=== PATIENT | female | born 1960 | race Caucasian/White ===

== ENCOUNTER → 2022-06-09 | Outpatient (CLI) | payer OTHER ==
--- NOTE | 2022-06-09 13:59 | CT ---
EXAMINATION TYPE: CT chest w con CT DLP: 254 mGycm, Automated exposure control for dose reduction was used. DATE OF EXAM: 06/09/2022 1:38 PM COMPARISON: CTA chest 12/10/2021. CLINICAL INDICATION:Female, 62 years old with history of R04.2 HEMOPTYSIS; PH[facility], hemoptysis. Hx of keisha g ca. TECHNIQUE: Multiple axial images were obtained through the chest following the administration of 70 c c of Isovue 300. FINDINGS: LUNGS/ PLEURA: No pleural effusion or pneumothorax. Right lower lobe groundglass opacity is new from prior examination. Similar right upper lobe pleural-parenchymal scarring with bronchiectasis and volu me loss with suture material identified. No new concerning pulmonary nodules or masses. AIRWAY: Patent and unremarkable.. HEART: Size within normal limits. No pericardial effusion. Coronary arterial calcifications. Prominen t pericardial fat redemonstrated. MEDIASTINUM: No gross evidence of adenopathy. VASCULATURE: No aortic aneurysm. Atherosclerotic calcification of the aorta. MUSCULOSKELETAL: No acute osseous abnormalities. Subtle sclerotic appearance of the superior right ri bs likely grade to posttreatment changes. Thoracic spine shows kyphotic deformity. Anterior wedging o f the thoracic vertebral bodies again demonstrated. This is most pronounced at T8. No aggressive osse ous lesions. SOFT TISSUES/LYMPH NODES: Unremarkable. LOWER NECK: No significant findings. UPPER ABDOMEN: Surgical clips in the pericaval region. Punctate left renal calculus. Left renal cysts identified with largest measuring up to 1.9 cm. Lobulated left adrenal mass measuring 4.1 x 1.8 cm. Colonic diverticulosis. IMPRESSION: 1. Development of right lower lobe patchy consolidation concerning for infectious/inflammatory proces s. Malignancy is not entirely excluded. Attention on follow-up. 2. There are postsurgical changes of the right upper lobe with consolidation, bronchiectasis, and vol ume loss. 3. Left adrenal mass measuring up to 4.1 cm. Correlation with prior imaging is recommended otherwise consider dedicated CT adrenal mass protocol.
== END | disposition home or self-care (01) ==
LOC: RADCTMAIN 12:55
PROVIDERS: ATTEND Internal Medicine Critical Care Medicine
DX: R04.2 Hemoptysis (principal)
CPT/HCPCS: 71260; Q9967

== ENCOUNTER → 2022-06-09 | Outpatient (CLI) | payer OTHER ==
--- NOTE | 2022-06-09 13:26 | MM ---
Reason for Exam: Screening (asymptomatic). Baseline mammogram. Patient History: Menarche at age 11. First Full-Term at age 20. Postmenopausal. Previous chest radiation therapy at age 29. Previous chemotherapy at age 29. Mother had ovarian cancer, age 73. Risk Values: Brenda 5 year model risk: 1.4%. NCI Lifetime model risk: 6.0%. Prior Study Comparison: Patient's first Mammogram. No prior studies available for comparison. Tissue Density: The breast tissue is heterogeneously dense. This may lower the sensitivity of mammography. Findings: Analyzed By CAD. There is no suspicious group of microcalcifications. Asymmetry in the anterior depth outer right breast ON CC view. Overall Assessment: Incomplete: need additional imaging evaluation, BI-RAD 0 Management: Diagnostic Mammogram of the right breast. A clinical breast exam by your physician is recommended on an annual basis and results should be correlated with mammographic findings. [facility] will attempt to contact patient to return for supplemental views and ultrasound if indicated. Electronically signed and approved by: Luis De Jesus D.O.
== END | disposition home or self-care (01) ==
LOC: RADMAMWWP 12:35
PROVIDERS: ATTEND Family Medicine
DX: Z12.31 Encounter for screening mammogram for malignant neoplasm of breast (principal); Z78.0 Asymptomatic menopausal state
CPT/HCPCS: 77067

== ENCOUNTER → 2022-06-19 | Outpatient (CLI) | payer OTHER ==
--- NOTE | 2022-06-19 11:24 | USB ---
Reason for Exam: Additional evaluation requested from abnormal screening. Patient History: Menarche at age 11. First Full-Term at age 20. Postmenopausal. Previous chest radiation therapy at age 29. Previous chemotherapy at age 29. Mother had ovarian cancer, age 73. Risk Values: Brenda 5 year model risk: 1.4%. NCI Lifetime model risk: 6.0%. Technique: Method: Targeted. Prior Study Comparison: 06/09/2022 Bilateral MG screening mammo w CAD, [facility]. Findings: The upper outer quadrant of the right breast, the axilla of the right breast and the retroareolar of the right breast were scanned. Targeted ultrasound lateral portion from 7:00 to 11:00 including the subareolar region and axilla. At the 9:00 position, 4 cm from the nipple, there is a vertically orientated hypoechoic area measuring 3 x 3 x 3 mm with posterior shadowing. Given the morphology, despite the small size, and that it seems to correspond to the mammographic finding, further tissue sampling is recommended. No other solid or cystic lesion. Overall Assessment: Suspicious, BI-RAD 4 Management: Ultrasound Core Biopsy of the right breast. Tiny 3 mm mammographic correlate at the 9:00 position. Electronically signed and approved by: Familia Womack M.D. Radiologist
--- NOTE | 2022-06-19 15:42 | MM ---
Reason for Exam: Additional evaluation requested from abnormal screening. Last screening mammogram was performed less than 1 month ago. Patient History: Menarche at age 11. First Full-Term at age 20. Postmenopausal. Previous chest radiation therapy at age 29. Previous chemotherapy at age 29. Mother had ovarian cancer, age 73. Risk Values: Brenda 5 year model risk: 1.4%. NCI Lifetime model risk: 6.0%. Prior Study Comparison: 06/09/2022 Bilateral MG screening mammo w CAD, [facility]. Tissue Density: Right: There are scattered fibroglandular densities. Findings: Analyzed By CAD. Subtle 4 mm nodular asymmetric density lateral anterior right breast persists. Possibly 8 to 9:00 position. Further ultrasound evaluation recommended. Overall Assessment: Incomplete: need additional imaging evaluation, BI-RAD 0 Management: Diagnostic Breast Ultrasound of the right breast. Electronically signed and approved by: Familia Woamck M.D. Radiologist
== END | disposition home or self-care (01) ==
LOC: RADMAMWWP 10:06
PROVIDERS: ATTEND Family Medicine
DX: R92.8 Other abnormal and inconclusive findings on diagnostic imaging of breast (principal); Z78.0 Asymptomatic menopausal state; Z80.3 Family history of malignant neoplasm of breast; Z98.890 Other specified postprocedural states
CPT/HCPCS: 77065

== ENCOUNTER → 2022-07-02 | Day surgery (SDC) | payer OTHER ==
--- NOTE | 2022-07-04 14:10 | USB ---
Risk Values: Brenda 5 year model risk: 1.4%. NCI Lifetime model risk: 6.0%. Pathology Description: Location: 9 o'clock. Marker Left Behind. Needle Type: Mammotome Cores: 4 Skin Nicks: 1 Gauge: 13 The procedure of ultrasound guided core biopsy was explained to the patient. Benefits, alternatives, and risks were discussed. An informed consent was then obtained. The patient was placed in supine positioning for imaging and for the procedure. The overlying skin was prepped and draped in usual sterile fashion. Lidocaine buffered with lidocaine was used as anesthetic into the skin and subcutaneous tissue up to area of concern in the right breast 9:00 4 submitted images from the nipple. A xavier was made with surgical scalpel. Under ultrasound guidance, a 12-gauge vacuum assisted biopsy gun device was used to obtain 4 core samples. Following this, a biopsy clip was left in lesion. The patient tolerated the procedure well without any immediate complication. The patient was kept in the radiology department for short stay after the procedure and then discharged home in stable condition. Postprocedure mammogram: The patient was transferred to mammography for physician ordered post procedure mammogram for clip placement verification which demonstrated a biopsy clip in appropriate position. Impression: Successful, uncomplicated ultrasound guided core biopsy of area of concern in the right breast, full pathology results to follow. Biopsy clip in appropriate position. Pathology Results: Result: Benign, Fibrocystic change. RIGHT BREAST, NINE O'CLOCK, ULTRASOUND GUIDED NEEDLE CORE BIOPSY: Fragments of benign breast with fibrocystic changes including cyst wall with fibrosis, background blood and fat necrosis. Tissue Density: Right: The breast tissue is heterogeneously dense. This may lower the sensitivity of mammography. Overall Assessment: Benign Assessment: MG diagnostic mammo RT wo CAD - Right: Benign, BI-RAD 2. Management: Diagnostic Mammogram of the right breast in 6 months. Electronically signed and approved by: Chris Khanna DO
== END ==
LOC: RADUSWWP 10:28
PROVIDERS: ATTEND Surgery
DX: N60.31 Fibrosclerosis of right breast (principal); N60.01 Solitary cyst of right breast; N64.1 Fat necrosis of breast; R92.8 Other abnormal and inconclusive findings on diagnostic imaging of breast
CPT/HCPCS: 88305; 77065; 19083; A4648

== ENCOUNTER → 2022-12-11 | Outpatient (CLI) | payer OTHER ==
--- NOTE | 2022-12-11 12:27 | CT ---
EXAMINATION TYPE: CT chest w con DATE OF EXAM: 12/11/2022 COMPARISON: Chest CT June 09, 2022 and older studies HISTORY: Hx Lung ca, COPD. Cough. CT DLP: 284.90 mGycm. Automated Exposure Control for Dose Reduction was Utilized. TECHNIQUE: CT scan of the thorax is performed following with IV Contrast, patient injected with 100 mL of Isovue 300. FINDINGS: LUNGS: Focal right apical pleural thickening extending medially and inferiorly to the right hilar reg ion is redemonstrated. Surgical clips at level of right hilum with some adjacent scarring and suprahi lar cavitation is again seen. Right hilar superior retraction redemonstrated. Mild right lower lung linear scarring again seen. Resolved right basilar focal groundglass opacity and organizing consolida tion noted. Left lung remains clear. There is no pleural effusion or pneumothorax seen bilaterally. The tracheobronchial tree is patent. MEDIASTINUM: There are no greater than 1 cm hilar or mediastinal lymph nodes. No pericardial effusi on is seen. Stable mild cardiomegaly. Coronary artery calcification is redemonstrated. OTHER: Surgical clips in the retroperitoneum posterior to the IVC are again seen. There are a few sma ll simple parenchymal cysts scattered throughout the bilateral kidneys redemonstrated. Persistent het erogeneous left adrenal mass or 2 adjacent masses measuring in total 4.0 x 2.0 cm axial image 57 with more low dense component posteriorly as no significant change in size or appearance from prior CTs. IMPRESSION: Resolved right basilar round glass opacity and organizing consolidation otherwise no sign ificant change from prior CTs. Posttreatment changes to the right lung redemonstrated. No new or enla rging masses or adenopathy identified to suggest active neoplastic recurrence.
== END | disposition home or self-care (01) ==
LOC: RADCTMAIN 11:19
PROVIDERS: ATTEND Internal Medicine Critical Care Medicine
DX: R04.2 Hemoptysis (principal)
CPT/HCPCS: 71260; Q9967

== ENCOUNTER → 2023-02-16 | Outpatient (CLI) | payer OTHER | END | disposition home or self-care (01) | LOC: LABPAT 16:22 | PROVIDERS: ATTEND Urology | DX: Z01.812 Encounter for preprocedural laboratory examination (principal); N39.3 Stress incontinence (female) (male); R31.29 Other microscopic hematuria | CPT/HCPCS: 80048; 81001; 85027; 86850; 86900; 86901; 87086 ==

== ENCOUNTER → 2023-02-19 | Outpatient (CLI) | payer OTHER | END | disposition home or self-care (01) | LOC: LABPAT 10:24 | PROVIDERS: ATTEND Obstetrics & Gynecology | DX: Z01.818 Encounter for other preprocedural examination (principal); N81.11 Cystocele, midline; I51.7 Cardiomegaly; I45.81 Long QT syndrome | CPT/HCPCS: 93005 ==

== ENCOUNTER 2023-02-25 05:45 | Observation (INO) | payer OTHER ==
[2023-02-16 20:30] LABS: African American GFR (CKD) 78.7 (60.0-200.0); Anion Gap 13.6 mmol/L (10.00-18.00); BUN/Creat Ratio 21.18 Ratio (12.00-20.00); Blood Urea Nitrogen 19.1 mg/dL (9.0-27.0); Calcium 10.4 mg/dL (8.7-10.3); Non-African American GFR(CKD) 67.9 (60.0-200.0); Potassium 4.1 mmol/L (3.5-5.5)
[2023-02-16 21:42] LABS: Appearance,Urine Clear (Clear); Bilirubin,Urine Negative (Negative); Blood,Urine Negative (Negative); Color,Urine Yellow (Yellow); Ketones,Urine Negative (Negative); Nitrite,Urine Positive (Negative); Specific Gravity,Urine 1.017 (1.001-1.030); Urobilinogen,Urine 0.2 (0.2,1.0)
[2023-02-16 21:51] LABS: Bacteria,Urine 4+ /HPF (None Seen)
[2023-02-18 12:54] VITALS: BMI 24.3
--- NOTE | 2023-02-20 07:51 | HP ---
HISTORY AND PHYSICAL H and P for next week for surgery on 02/25/2023. HISTORY OF PRESENT ILLNESS: This is a 62-year-old female, who presented with recurrent prolapse and constant urinary incontinence. She was fitted with a ring pessary, which initially worked well, now stating it is very uncomfortable and is falling out with straining. She is requesting surgical repair, vaginal hysterectomy, anterior colporrhaphy, and sling procedure with Dr. Choi. She is menopausal, not taking hormonal replacement therapy. She has had no unusual postmenopausal bleeding. REVIEW OF SYSTEMS: Otherwise, negative. PAST MEDICAL HISTORY: Significant for anxiety and depression, brain aneurysm diagnosis in 2001, COPD, lung cancer in 1988, and urinary incontinence. PAST SURGICAL HISTORY: Adrenal glands removed in the past, brain aneurysm clipping, removal of right upper lobe of the lung secondary to cancer, and wisdom teeth extracted. CURRENT MEDICATIONS: 1. Celexa 40 mg once daily. 2. Centrum vitamin daily. 3. Vitamin B12 daily. 4. Melatonin 5 mg daily. 5. Ipratropium bromide 0.02% solution for inhalation daily. 6. Ventolin HFA 90 mcg. 7. inhaler 1 puff every 6 hours as needed. 8. Trelegy Ellipta 100 mcg/62.5 mcg powder for inhalation once daily. FAMILY HISTORY: Significant for ovarian cancer, lung cancer, pulmonary embolus, and rectal cancer. REPRODUCTIVE HISTORY: Significant for 3 normal spontaneous vaginal deliveries, uncomplicated. SOCIAL HISTORY: The patient drinks alcohol socially. Former tobacco smoker, quit in 2019. No vaping reported. PHYSICAL EXAMINATION: VITAL SIGNS: The patient is 5 feet 3 inches, 146 pounds, 97% O2 saturation, blood pressure 110/80. HEENT: Exam reveals good dentition. No thyromegaly. No cervical lymphadenopathy. CHEST: Clear to auscultation in all lantigua. Breathing is unlabored. No rales or rhonchi. Diminished lung sounds on the right upper aspect. CARDIAC: Reveals regular rate and rhythm with no murmur, click, or rub. BREASTS: Exam reveals breasts to be bilaterally symmetric with no skin dimpling, nipple discharge, axillary adenopathy, or discernible lesions or masses. ABDOMEN: Soft and nontender. Active bowel sounds. No organosplenomegaly. No CVA tenderness. EXTREMITIES: Reveal no edema. Good peripheral pulses. PELVIC: The external genitalia appear reasonably well estrogenized. There is a grade 2 to 3 uterine prolapse. A grade 3 cystocele. No obvious rectocele. Cervix appears normal to palpation. Internal exam reveals nontender mobile uterus. Negative adnexa bilaterally. RECTAL: Reveals good sphincter tone. FIT-negative stool. No hemorrhoids. MENTAL STATUS: The patient is alert and oriented x3, with good judgment and normal affect. IMPRESSION: Increasingly symptomatic uterine prolapse and cystocele, with genuine stress urinary incontinence. The patient is using a pessary for a long period of time, now requesting surgical palliation. PLAN: The patient did have preoperative clearance with Dr. Billings, please see attached. She has been counseled regarding the risks of surgery to include but not be exclusive of bleeding, infection, perforation or damage to bowel, bladder, ureters, or indeed any pelvic or abdominal organs. We reviewed the risks of anesthesia, aspiration, nerve damage, and even . The risk of postoperative dyspareunia is also discussed. Second opinion is offered and declined. All questions answered. The ACOG pamphlets on this procedure have been given to the patient and reviewed. MMODL / IJN: [id number] /
--- NOTE | 2023-02-24 11:33 | P.GSHP ---
History of Present Illness H&P Date: 02/24/23 62-year-old female with vaginal prolapse and mixed urinary incontinence. She is to have a vaginal hysterectomy and AP repair by Dr. Craig. She has stress urinary incontinence that I will do a trans-obturator tape at the same time. She does have urgency incontinence also which is probably related to the prolapse which will hopefully disappear after the hysterectomy and anterior repair. The risks complications have been discussed - Constitutional Constitutional: Denies chills, Denies fever - EENT Eyes: denies blurred vision, denies pain Ears, nose, mouth and throat: Denies headache, Denies sore throat - Cardiovascular Cardiovascular: Denies chest pain, Denies shortness of breath - Respiratory Respiratory: Denies cough, Denies 7 - Gastrointestinal Gastrointestinal: Denies abdominal pain, Denies diarrhea, Denies nausea, Denies vomiting - Genitourinary (Female) Genitourinary: Denies dysuria, Denies hematuria - Genitourinary (Male) Genitourinary: Denies dysuria, Denies hematuria - Musculoskeletal Musculoskeletal: Denies myalgias - Integumentary Integumentary: Denies pruritus, Denies rash - Neurological Neurological: Denies numbness, Denies weakness - Psychiatric Psychiatric: Denies anxiety, Denies depression - Endocrine Endocrine: Denies fatigue, Denies weight change Past Medical History Past Medical History: Cancer, COPD Additional Past Medical History / Comment(s): lung CA hx, brain anyursm-HAD SURGERY, History of Any Multi-Drug Resistant Organisms: None Reported Past Surgical History: Tubal Ligation Additional Past Surgical History / Comment(s): RT UPPER lobectomy AND RIGHT ADRENAL GLAND REMOVED , BRAIN SURGERY, EXTRACTION OF 4 WISDOM TEETH Past Anesthesia/Blood Transfusion Reactions: No Reported Reaction Smoking Status: Former smoker - Past Family History Mother Family Medical History: Cancer Additional Family Medical History / Comment(s): OVARIAN CANCER Sister(s) Additional Family Medical History / Comment(s): RECTAL CANCER Brother(s) Family Medical History: Cancer Additional Family Medical History / Comment(s): LUNG CANCER Medications and Allergies Home Medications Medication Instructions Recorded Confirmed Type Albuterol Sulfate [Ventolin HFA] 2 puff INHALATION RT-QID PRN 12/10/21 02/18/23 History Cholecalciferol [Vitamin D3 (125 25 mcg PO DAILY 12/10/21 02/18/23 History Mcg = 5000 Iu)] Citalopram Hydrobromide [CeleXA] 40 mg PO DAILY 12/10/21 02/18/23 History Melatonin [Melatonin ER] 10 mg PO HS 12/10/21 02/18/23 History Albuterol Nebulized [Ventolin 2.5 mg INHALATION Q6H PRN 02/18/23 02/18/23 History Nebulized] Fluticasone/Umeclidin/Vilanter 1 puff INHALATION DAILY 02/18/23 02/18/23 History [Trelegy Ellipta 200-62.5-25] Ipratropium-Albuterol Nebulize 3 ml INHALATION Q6H PRN 02/18/23 02/18/23 History [Duoneb 0.5 mg-3 mg/3 ml Soln] busPIRone HCL 5 mg PO DAILY 02/18/23 02/18/23 History Allergies Allergy/AdvReac Type Severity Reaction Status Date / Time No Known Allergies Allergy Verified 02/18/23 10:50 Surgical - Exam - General well developed, well nourished, no distress - Eyes normal ocular movement, no icteric - ENT no hearing loss, no congestion - Neck no masses, trachea midline - Respiratory normal respiratory effort, clear to auscultation - Abdomen Abdomen: soft, non tender, no guarding, no rigid, no rebound - Genitourinary cysto rectocele, mobile urethra with kimmy - Integumentary no rash, no abnormal pigmentation - Neurologic no disoriented, no combative - Psychiatric oriented to time, oriented to person, oriented to place, speech is normal, memory intact Results - Labs 02/16/23 16:26 Assessment and Plan Assessment: Impression: Vaginal prolapse. Stress urinary incontinence. Recommendations: Patient will undergo an anterior posterior repair by , and a trans-obturator tape (obtyrx) with cystoscopy by myself. Risks complications alternatives have been discussed.
[2023-02-25] MEDS ORDERED: LIDOCAINE 1% (10MG/ML) FOR IV START INTRADERMA PRN (05:54)
[2023-02-25] MEDS ORDERED: ONDANSETRON 4 MG/2 ML VIAL IVP ONE (05:54)
[2023-02-25] MEDS: LACTATED RINGERS 1,000 ML IV SCH (06:09)
[2023-02-25] MEDS ORDERED: DEXAMETHASONE SOD PHOSPHATE 4 MG/ML 1 ML VIAL IVP ONE (06:47)
[2023-02-25] MEDS ORDERED: MIDAZOLAM 2 MG/2 ML VIAL IVP ONE (06:54)
[2023-02-25] MEDS ORDERED: HYDROmorphone 0.5 MG/0.5 ML SYRINGE IVP PRN (07:00)
[2023-02-25] MEDS ORDERED: LIDOCAINE 2% INJ 20 MG/ML (2 ML VIAL) ONE (07:19)
[2023-02-25] MEDS ORDERED: MORPHINE SULFATE (PF) 0.3 MG/0.3 ML SYR ONE (07:19)
[2023-02-25] MEDS ORDERED: PROPOFOL 10 MG/ML 20 ML VIAL IV ONE (07:19)
[2023-02-25] MEDS ORDERED: NEOSTIGMINE 1 MG/ML 10 ML VIAL ONE (07:19)
[2023-02-25] MEDS ORDERED: SUCCINYLCHOLINE CHLORIDE 200 MG/10 ML VIAL IV ONE (07:19)
[2023-02-25] MEDS ORDERED: MIDAZOLAM 2 MG/2 ML VIAL ONE (07:19)
[2023-02-25] MEDS ORDERED: PHENYLEPHRINE-0.9% NACL SYG 1,000 MCG/10 ML SYRINGE ONE (07:19)
[2023-02-25] MEDS ORDERED: diphenhydrAMINE 50 MG/ML 1 ML VIAL ONE (07:19)
[2023-02-25] MEDS ORDERED: fentaNYL (PF) 50 MCG/ML 2 ML AMP ONE (07:19)
[2023-02-25] MEDS ORDERED: ROCURONIUM 10 MG/ML (5 ML VIAL) IV ONE (07:19)
[2023-02-25] MEDS ORDERED: GLYCOPYRROLATE 0.2 MG/ML 2 ML VIAL ONE (07:19)
[2023-02-25] MEDS ORDERED: VASOPRESSIN 20 UNIT/ML 1 ML VIAL SQ ONE ×2 (07:41)
[2023-02-25] MEDS ORDERED: GENTAMICIN 80 MG in SODIUM CHLORIDE 0.9% 500 ML 500 ML IRRIGATION ONE (07:43)
[2023-02-25] MEDS ORDERED: BACITRACIN ZINC 500 UNIT/GM OINT 28.4 GM TUBE TOPICAL ONE ×2 (07:55→08:28)
[2023-02-25] MEDS ORDERED: LACTATED RINGERS 1,000 ML IV ONE (08:18)
--- NOTE | 2023-02-25 08:29 | P.OP ---
Date of Procedure: 02/25/23 Preoperative Diagnosis: Increasingly symptomatic uterine prolapse, cystocele, genuine stress urinary incontinence Postoperative Diagnosis: Small grade 2 rectocele, ovaries streak, high in the pelvis, left in situ Procedure(s) Performed: Vaginal hysterectomy, anterior colporrhaphy Anesthesia: MAURICIOA Surgeon: Lori Craig Department Of Mathematics Chair #1: Vee Larson Estimated Blood Loss (ml): 50 IV fluids (ml): 900 Urine output (ml): 100 Pathology: other (Cervix and uterus) Condition: stable Disposition: PACU Operative Findings: Ovaries small, streaked, high in the pelvis bilaterally. Grade 2 rectocele noted. Description of Procedure: Patient is brought to the operating suite after spinal with Duramorph is placed in the preoperative area. She's placed in the dorsal lithotomy position, general anesthetic is given. Antibiotics given. The cervix, vagina, perineal bodies are all prepped and draped in usual sterile fashion. The appropriate timeout is performed to assure proper patient procedure identification. Bladder is drained for approximately 100 mL of clear yellow urine. Weighted speculum was placed into the vagina and the anterior lip of the cervix is grasped with a double-tooth tenaculum. Cervix is injected circumferentially with a dilute Pitressin solution. Mineral blade scalpel is used to incise the mucosa circumferentially with a V positioning at 6:00. Sponge rolled finger is used to sweep the mucosa from the underlying fascial plane. Peritoneum is entered at 6:00 with Metzenbaum scissors, suture tied with 2-0 Vicryl and held with hemostat. Large billed speculum is then placed into the peritoneal cavity. At all times the mucosa is swept well from the operative field to avoid injury. The right uterosacral cardinal ligament is identified, clamped cut and suture ligated, held with a hemostat laterally. Same procedure is carried out contralaterally. Uterine vasculature is skeletonized, identified, clamped cut and suture ligated. 2 additional pedicles are taken superior to the vessels. Again the bladder swept well from the operative field. It is entered at 6:00 with a Metzenbaum scissor and Cyril clamps are used across the final pedicles. The uterus and cervix are removed, the pedicles are tied with 0 Vicryl suture in a Cha stitch, flashed, and retied for excellent hemostasis bilaterally. A sponge stick is then used to visualize the ovaries which are very high in the pelvis along the sidewalls, appear atrophic and within normal limits. They're left in situ secondary to in accessibility. The speculum is then switched to the shallow billed speculum. The 2-0 Vicryl suture is brought around in a pursestring fashion to close the peritoneum. The uterosacral cardinal ligaments are brought across now to incorporate the opposite ligament as well as vaginal mucosa and the vagina is closed. 2 additional dsyugz-li-pygut sutures are used for final vaginal cuff closure. Allis clamps are used on the superior most portion of the mucosa and it is injected in the midline using the same dilute Pitressin solution for approximately 1.5 cm inferior to the urethra. A sponge rolled finger is used to sweep the mucosa from the underlying fascial plane. Dang catheter is placed in the bladder is once again drained, clear urine noted. 2-0 Vicryl sutures are used in an interrupted fashion to bring the fascial edges together in the midline thereby completely reducing the cystocele. Metzenbaum scissors are used to trim the redundant mucosa. Dr. Livingston now sits to complete his portion of the procedure. Total estimated blood loss 50 mL, fluid replacement 900 mL's. I exited the operating room with the patient in stable condition, blood pressure 108/56, pulse 65, 99% O2 saturation.
[2023-02-25] MEDS ORDERED: SIMETHICONE 80 MG CHEWABLE PO PRN (08:30)
[2023-02-25] MEDS ORDERED: ONDANSETRON 4 MG/2 ML VIAL IVP PRN (08:30)
--- NOTE | 2023-02-25 09:16 | P.OP ---
Date of Procedure: 02/25/23 Preoperative Diagnosis: Stress urinary incontinence Postoperative Diagnosis: Same Procedure(s) Performed: Trans-obturator tape with cystoscopy Anesthesia: SUSU Surgeon: Ruben Choi Estimated Blood Loss (ml): 0 Pathology: none sent Condition: stable Disposition: PACU Indications for Procedure: Patient is 62. She has vaginal prolapse and will undergo a vaginal hysterectomy with anterior repair by . I will do a trans-obturator tape[obtryx] with cystoscopy Description of Procedure: The patient is in the operating suite. She previously has had a general anesthetic sterile prep and drape. has performed a vaginal hysterectomy and anterior repair. I opened the vaginal mucosa towards the urethra. I dissect lateral to the bladder neck bilaterally. Make incisions in the inguinal crease at the level of the clitoris. I passed the introducers through the inguinal incision around the issue pubic ramus into the vaginal space bilaterally. I then performed cystoscopy to make sure there is no injury to the bladder and there is none. I attached the grafted introducers and pull the graft back through the inguinal incisions bilaterally. The graft lay in the middle of the urethra nicely without tension. I removed the redundant sheathing. I closed the vaginal mucosa with a running 2-0 Vicryl. I excised redundant graft at the inguinal incisions and closed the inguinal incisions with 4-0 Vicryl. A vaginal packings placed. The patient is awakened and returned recovery room good condition. will dictate her portion of the procedure. There is no blood loss from my. Her condition is good. The urine is clear postoperatively. ni
[2023-02-25] MEDS: KETOROLAC 15 MG/ML 1 ML VIAL IVP PRN (16:48)
[2023-02-25] MEDS: diphenhydrAMINE 50 MG/ML 1 ML VIAL IVP PRN (20:45)
[2023-02-25] MEDS ORDERED: MELATONIN 5 MG TABLET PO SCH (21:00)
--- NOTE | 2023-02-25 21:01 | P.ANPRN ---
Procedure Note - Anesthesia - Epidural/Spinal Spinal Time Out Performed: Yes Date of Procedure: 02/25/23 Procedure Start Time: 06:53 Procedure Stop Time: 07:00 Location of Patient: PreOp Indication: Acute Post-Operative Pain, Requested by Surgeon Sedation Type: Sedate with meaningful contact maintained Preparation: Sterile Prep Position: Sitting Needle Guage: 25 Blood Aspirated: No Pain Paresthesia on Injection Noted: No Events: Uneventful and Well Tolerated (Duramorph. Tin's plus fentanyl 25 mics was given intrathecal)
[2023-02-26] MEDS: KETOROLAC 15 MG/ML 1 ML VIAL IVP PRN (01:49)
[2023-02-26] MEDS: diphenhydrAMINE 50 MG/ML 1 ML VIAL IVP PRN (01:49)
--- NOTE | 2023-02-26 06:45 | P.PN ---
Progress Note - Text 02/26/23 623am 62-year-old female status post vaginal hysterectomy by Dr. Craig. Patient received a spinal Duramorph for postop pain control, she was seen and evaluated, she has a VAS of 1 with no complains of nausea vomiting. She does have some pruritus should subside soon
--- NOTE | 2023-02-26 07:46 | P.DS ---
Providers Date of admission: 02/25/23 Expected date of discharge: 02/26/23 Attending physician: Lori Craig Primary care physician: Randal Lobohven [facility] Course: This is a 62-year-old female who presented with an increasingly symptomatic uterine prolapse cystocele and genuine stress urinary incontinence, for surgical repair after thorough consultation. Please see dictated history and physicals for details. Yesterday she underwent a vaginal hysterectomy, anterior colporrhaphy, and sling procedure with Dr. Livingston. She did well intraoperatively with an estimated blood loss of 50 mL's. Vagina was packed with iodoform gauze and Dang catheter placed. Please see both of our dictated operative note for details. This morning the vaginal packing and the Dang catheter been removed. Patient denies any pain, she did receive a Duramorph with spinal. There is very scant vaginal discharge. We are awaiting the first spontaneous void which will be measured along with post for residual. With residual reasonable, patient will be discharged home later today. Her vital signs are stable, she feels well, no pain, active bowel sounds, positive flatus. Extremities are negative and chest is clear. Patient will follow-up with Dr. Livingston in the office in 1 week, and follow-up with me in the office in 2 weeks. She is reminded no intercourse, tampons or douching. She will use [id number] Advil or Aleve, or Motrin as needed for pain. She will call with any fevers shakes or chills, vaginal bleeding, any pain not alleviated by [id number] products, with any issues with urination or defecation, or indeed with any concerns. Assessment: Doing well postoperative day #1 Patient Condition at Discharge: Good Plan - Discharge Summary Discharge Rx Participant: No New Discharge Prescriptions: No Action Albuterol Sulfate [Ventolin HFA] 2 puff INHALATION RT-QID PRN PRN Reason: Shortness Of Breath Cholecalciferol [Vitamin D3 (125 Mcg = 5000 Iu)] 25 mcg PO DAILY Ipratropium-Albuterol Nebulize [Duoneb 0.5 mg-3 mg/3 ml Soln] 3 ml INHALATION Q6H PRN PRN Reason: Shortness Of Breath Citalopram Hydrobromide [CeleXA] 40 mg PO DAILY Melatonin [Melatonin ER] 10 mg PO HS busPIRone HCL 5 mg PO DAILY Fluticasone/Umeclidin/Vilanter [Trelegy Ellipta 200-62.5-25] 1 puff INHALATION DAILY Albuterol Nebulized [Ventolin Nebulized] 2.5 mg INHALATION Q6H PRN PRN Reason: Shortness Of Breath Or Wheezing Sulfamethox-Tmp 800-160Mg [Bactrim DS 800-160 mg] 1 tab PO Q12HR Discharge Medication List Albuterol Sulfate [Ventolin HFA] 2 puff INHALATION RT-QID PRN 12/10/21 [History] Cholecalciferol [Vitamin D3 (125 Mcg = 5000 Iu)] 25 mcg PO DAILY 12/10/21 [History] Citalopram Hydrobromide [CeleXA] 40 mg PO DAILY 12/10/21 [History] Melatonin [Melatonin ER] 10 mg PO HS 12/10/21 [History] Albuterol Nebulized [Ventolin Nebulized] 2.5 mg INHALATION Q6H PRN 02/18/23 [History] Fluticasone/Umeclidin/Vilanter [Trelegy Ellipta 200-62.5-25] 1 puff INHALATION DAILY 02/18/23 [History] Ipratropium-Albuterol Nebulize [Duoneb 0.5 mg-3 mg/3 ml Soln] 3 ml INHALATION Q6H PRN 02/18/23 [History] busPIRone HCL 5 mg PO DAILY 02/18/23 [History] Sulfamethox-Tmp 800-160Mg [Bactrim DS 800-160 mg] 1 tab PO Q12HR 02/24/23 [History] Follow up Appointment(s)/Referral(s): Lori Craig MD [STAFF PHYSICIAN] - 2 Weeks Discharge Disposition: HOME SELF-CARE
--- NOTE | 2023-02-26 07:53 | P.PN ---
Progress Note - Text Progress Note Date: 02/26/23 The patient underwent vaginal hysterectomy and anterior repair by and by mouth T by myself yesterday. She did well overnight. Her pain is minimal. The vaginal packing and catheter have been removed. Assuming she voids okay she'll be discharged home. She'll go home on a regular diet with limited activity. She'll follow-up with myself in 1 week and with in 2 weeks. Postoperative instructions given. i
[2023-02-26] MEDS ORDERED: ACETAMINOPHEN TAB 325 MG TAB PO PRN (08:31)
[2023-02-26 08:34] VITALS: BP 125/75; PULSE 82; RESP 16; TEMP 99.2
[2023-02-26] MEDS: IBUPROFEN 600 MG TAB PO PRN ×2 (09:18→15:05)
[2023-02-26] MEDS: LACTATED RINGERS 1,000 ML IV SCH (09:18)
== END 2023-02-26 16:30 | disposition home or self-care (01) ==
LOC: OR 05:45 → 4FBP 08:41
PROVIDERS: ADMIT Obstetrics & Gynecology; ATTEND Obstetrics & Gynecology
DX: N81.4 Uterovaginal prolapse, unspecified (principal); G89.18 Other acute postprocedural pain; N39.46 Mixed incontinence; N72 Inflammatory disease of cervix uteri; J44.9 Chronic obstructive pulmonary disease, unspecified; I67.1 Cerebral aneurysm, nonruptured; F32.A Depression, unspecified; F41.9 Anxiety disorder, unspecified; Z85.118 Personal history of other malignant neoplasm of bronchus and lung; Z79.899 Other long term (current) drug therapy; Z80.0 Family history of malignant neoplasm of digestive organs; Z80.1 Family history of malignant neoplasm of trachea, bronchus and lung; Z80.41 Family history of malignant neoplasm of ovary; Z87.891 Personal history of nicotine dependence; Z98.51 Tubal ligation status; Z90.2 Acquired absence of lung [part of]
CPT/HCPCS: 86900; 86901; 88305; 80048; 86850; 81001; 87086; 87077; 87186; 58275; 57288; 64483; G0378; C1771; J2250; J0330; J1200 ×2; J1580; J1100; J2710; J0690; J2405; J2274; J3010; J1885 ×2; J2370; J2704; J2001

== ENCOUNTER 2023-05-20 16:03 | Emergency (ER) | payer OTHER ==
[2023-05-20 16:57] VITALS: RESP 18; TEMP 98.6
--- NOTE | 2023-05-20 18:02 | ED ---
General Adult HPI - General Source: EMS Mode of arrival: EMS Limitations: no limitations <CarlosDave vidales - Last Filed: 05/20/23 18:02> <Su Canas - Last Filed: 05/23/23 01:16> - General Chief complaint: Upper Respiratory Infection Stated complaint: abnormal labs - History of Present Illness Initial comments: 62-year-old female presented to the ED with a chief complaint of hemoptysis. States last night had an episode of hemoptysis with small clots. Saw her PCP today who do a d-dimer which was reportedly elevated and was advised to present to the ED to rule out PE. Currently denies shortness of breath. (Dave Thomas) Patient is a 62-year-old female who presents the emergency department for hemoptysis. Last night patient had coughing spell at she noticed some blood and couple small blood clots. Since then patient has not noticed any blood or clots she does report blood-tinged colored sputum which she states is improving. She saw her primary care provider who obtained a d-dimer which was elevated. Patient was advised to come to the emergency department for possible pulmonary embolism. Patient denies chest pain and shortness of breath. Denies history of DVT and PE. Denies blood thinner use. Patient does have history of lung cancer 30 years ago. At that time patient had radiation and chemotherapy. She cannot remember her oncologist. States she has been in remission for about 30 years. She cannot remember when her last PET scan was, likely several years ago. Patient has history of COPD states she has had increased coughing for the past couple weeks. She denies fever, chills, nausea, vomiting. (Su Canas) - Related Data Home Medications Medication Instructions Recorded Confirmed Albuterol Sulfate [Ventolin HFA] 2 puff INHALATION RT-QID PRN 12/10/21 05/20/23 Cholecalciferol [Vitamin D3 (125 25 mcg PO DAILY 12/10/21 05/20/23 Mcg = 5000 Iu)] Ipratropium-Albuterol Nebulize 3 ml INHALATION RT-Q6H PRN 02/18/23 05/20/23 [Duoneb 0.5 mg-3 mg/3 ml Soln] busPIRone HCL 5 mg PO TID PRN 02/18/23 05/20/23 Citalopram Hydrobromide [CeleXA] 40 mg PO DAILY 05/20/23 05/20/23 Cyanocobalamin (Vitamin B-12) 1,000 mcg PO DAILY 05/20/23 05/20/23 [Vitamin B-12] Fluticasone/Umeclidin/Vilanter 1 puff INHALATION RT-DAILY 05/20/23 05/20/23 [Trelegy Ellipta 100-62.5-25] Previous Rx's Medication Instructions Recorded Benzonatate [Tessalon Perles] 100 mg PO TID PRN #15 capsule 05/20/23 Allergies Allergy/AdvReac Type Severity Reaction Status Date / Time No Known Allergies Allergy Verified 05/20/23 22:02 Review of Systems ROS Other: All systems not noted in ROS Statement are negative. <Dave Thomas - Last Filed: 05/20/23 18:02> ROS Other: All systems not noted in ROS Statement are negative. <Su Canas - Last Filed: 05/23/23 01:16> ROS Statement: Those systems with pertinent positive or pertinent negative responses have been documented in the HPI. Past Medical History Past Medical History: Cancer, COPD Additional Past Medical History / Comment(s): aspergillus fungal infection. lung CA hx, brain anyursm History of Any Multi-Drug Resistant Organisms: None Reported Past Surgical History: Tubal Ligation Additional Past Surgical History / Comment(s): R L lobectomy, Past Anesthesia/Blood Transfusion Reactions: No Reported Reaction Past Psychological History: Depression Smoking Status: Former smoker Past Alcohol Use History: None Reported Past Drug Use History: None Reported - Past Family History Mother Family Medical History: Cancer Additional Family Medical History / Comment(s): OVARIAN CANCER Sister(s) Additional Family Medical History / Comment(s): RECTAL CANCER Brother(s) Family Medical History: Cancer Additional Family Medical History / Comment(s): LUNG CANCER <Dave Thomas - Last Filed: 05/20/23 18:02> General Exam Limitations: no limitations General appearance: alert Neck exam: Present: normal inspection Extremities exam: Present: normal inspection Back exam: Present: normal inspection Neurological exam: Present: alert <Dave Thomas - Last Filed: 05/20/23 18:02> General appearance: alert Eye exam: Present: normal appearance, PERRL, EOMI. Absent: scleral icterus, conjunctival injection, periorbital swelling Respiratory exam: Absent: normal lung sounds bilaterally (abnormal upper right lung field ), respiratory distress, wheezes, rales, rhonchi, stridor Cardiovascular Exam: Present: regular rate, normal rhythm, normal heart sounds. Absent: systolic murmur, diastolic murmur, rubs, gallop, clicks Extremities exam: Present: normal inspection, full ROM, normal capillary refill. Absent: tenderness Neurological exam: Present: alert, oriented X3, CN II-XII intact Psychiatric exam: Present: normal affect, normal mood Skin exam: Present: warm, dry, intact, normal color. Absent: rash <Su Canas - Last Filed: 05/23/23 01:16> Course Vital Signs 05/20/23 05/20/23 16:49 22:31 Temperature 98.6 F Pulse Rate 100 98 Respiratory 18 18 Rate Blood Pressure 142/82 119/75 O2 Sat by Pulse 98 97 Oximetry Medical Decision Making <Dave Thomas - Last Filed: 05/20/23 18:02> - Lab Data Result diagrams: 05/20/23 19:56 05/20/23 19:56 <Su Canas - Last Filed: 05/23/23 01:16> - Medical Decision Making Quicknote performed. Signed Dave Thomas PA-C (Dave Thomas) Was pt. sent in by a medical professional or institution ([facility]IS[facility] Wong, GROUNDS WORKER, urgent care, hospital, or penitentiary...) When possible be specific @ -No Did you speak to anyone other than the patient for history (EMS, parent, family, police, friend...)? What history was obtained from this source @ -No Did you review nursing and triage notes (agree or disagree)? Why? @ -I reviewed and agree with nursing and triage notes Were old charts reviewed (outside hosp., previous admission, EMS record, old EKG, old radiological studies, urgent care reports/EKG's, penitentiary records)? Report findings @ -No old charts were reviewed Differential Diagnosis (chest pain, altered mental status, abdominal pain women, abdominal pain men, vaginal bleeding, weakness, fever, dyspnea, syncope, headache, dizziness, GI bleed, back pain, seizure, CVA, palpatations, mental health)? @ -Differential Dyspnea: Coronary syndrome, arrhythmia, tamponade, asthma, COPD, pulmonary embolism, pneumonia, pneumothorax, pulmonary effusion, anaphylaxis, diabetic ketoacidosis, flailed chest, pulmonary contusion, diaphragmatic rupture, anemia, neuromusc ular, this is not meant to be an all-inclusive list. EKG interpreted by me (3pts min.). @ -As above X-rays interpreted by me (1pt min.). @ -None done CT interpreted by me (1pt min.). @ Chest CTA shows right apical mass with pleural thickening along the posterior medial right upper lung field which appears to be chronic. There are some lytic areas within the upper thoracic spine which can be compatible with metastatic disease U/S interpreted by me (1pt. min.). @ -None done What testing was considered but not performed or refused? (CT, X-rays, U/S, labs)? Why? @ -None What meds were considered but not given or refused? Why? @ -[None] Did you discuss the management of the patient with other professionals (professionals i.e. , PA, GROUNDS WORKER, lab, RT, psych nurse, professor of social work, agency owner, teacher, seaman officer, case worker)? Give summary @ -[No] Was smoking cessation discussed for >3mins.? @ -[No] Was critical care preformed (if so, how long)? @ -[No] Were there social determinants of health that impacted care today? How? (Homeles sness, low income, unemployed, alcoholism, drug addiction, transportation, low edu. Level, literacy, decrease access to med. care, custodial, rehab)? @ -[No] Was there de-escalation of care discussed even if they declined (Discuss DNR or withdrawal of care, Hospice)? DNR status @ -[No] What co-morbidities impacted this encounter? (DM, HTN, Smoking, COPD, CAD, Cancer, CVA, ARF, Chemo, Hep., AIDS, mental health diagnosis, sleep apnea, morbid obesity)? @ -[None] Was patient admitted / discharged? Hospital course, mention meds given and route, prescriptions, significant lab abnormalities, going to OR and other pertinent info. @ -Patient presenting for hemoptysis. She is well-appearing, no evidence of distress. She has not had any episodes of hemoptysis since yesterday. She has not had chest pain or shortness of breath. Vitals are within acceptable limits. CTA was obtained interpreted by myself/radiology showing no evidence of pulmonary embolism. It does show a right apical mass with pleural thickening along the posterior medial right upper lung field which appears to be chronic. There are some lytic areas within the upper thoracic spine which can be compatible with metastatic disease. Discuss results with the patient. Patient does recall possibility of metastatic disease to the thoracic spine when she had active cancer. Patient recently moved to the area she needs new oncologist. Patient is in stable medical condition for further evaluation and management outpatient. She is referred to oncology today. We discussed return parameters. She is discharged with Tessalon pearls for cough Undiagnosed new problem with uncertain prognosis? @ -[No] Drug Therapy requiring intensive monitoring for toxicity (Heparin, Nitro, Insulin, Cardizem)? @ -[No] Were any procedures done? @ -[No] Diagnosis/symptom? @ Hemoptysis, cough Acute, or Chronic, or Acute on Chronic? @ -acute Uncomplicated (without systemic symptoms) or Complicated (systemic symptoms)? @ -uncomplicated Side effects of treatment? @ -[No] Exacerbation, Progression, or Severe Exacerbation? @ -[No] Poses a threat to life or bodily function? How? (Chest pain, USA, MA, pneumonia, PE, COPD, DKA, ARF, appy, cholecystitis, CVA, Diverticulitis, Homicidal, Suic idal, threat to staff... and all critical care pts) @ -No Dr. Wood is my attending (Su Canas) - Lab Data Lab Results 05/20/23 05/20/23 05/20/23 Range/Units 19:56 19:56 19:56 WBC 8.3 (3.8-10.6) k/uL RBC 4.44 (3.80-5.40) m/uL Hgb 14.6 (11.4-16.0) gm/dL Hct 43.1 (34.0-46.0) % MCV 97.0 (80.0-100.0) fL MCH 32.8 (25.0-35.0) pg MCHC 33.8 (31.0-37.0) g/dL RDW 13.4 (11.5-15.5) % Plt Count 242 (150-450) k/uL MPV 7.7 Neutrophils % 73 % Lymphocytes % 17 % Monocytes % 6 % Eosinophils % 2 % Basophils % 0 % Neutrophils # 6.1 (1.3-7.7) k/uL Lymphocytes # 1.4 (1.0-4.8) k/uL Monocytes # 0.5 (0-1.0) k/uL Eosinophils # 0.2 (0-0.7) k/uL Basophils # 0.0 (0-0.2) k/uL PT 9.6 (9.0-12.0) sec INR 0.9 (<1.2) APTT 25.1 (22.0-30.0) sec D-Dimer 1.22 H (<0.60) mg/L FEU Sodium 137 (137-145) mmol/L Potassium 4.4 (3.5-5.1) mmol/L Chloride 107 (98-107) mmol/L Carbon Dioxide 22 (22-30) mmol/L Anion Gap 8 mmol/L BUN 13 (7-17) mg/dL Creatinine 0.61 (0.52-1.04) mg/dL Est GFR (CKD-EPI)AfAm >90 (>60 ml/min/1.73 sqM) Est GFR (CKD-EPI)NonAf >90 (>60 ml/min/1.73 sqM) Glucose 92 (74-99) mg/dL Calcium 9.8 (8.4-10.2) mg/dL Total Bilirubin 0.5 (0.2-1.3) mg/dL AST 26 (14-36) U/L ALT 15 (4-34) U/L Alkaline Phosphatase 84 (38-126) U/L Total Protein 8.1 (6.3-8.2) g/dL Albumin 4.4 (3.5-5.0) g/dL Urine Color Urine Appearance (Clear) Urine pH (5.0-8.0) Ur Specific [place] (1.001-1.035) Urine Protein (Negative) Urine Glucose (UA) (Negative) Urine Ketones (Negative) Urine Blood (Negative) Urine Nitrite (Negative) Urine Bilirubin (Negative) Urine Urobilinogen (<2.0) mg/dL Ur Leukocyte Esterase (Negative) Urine RBC (0-5) /hpf Urine WBC (0-5) /hpf Ur Squamous Epith Cells (0-4) /hpf 05/20/23 Range/Units 21:45 WBC (3.8-10.6) k/uL RBC (3.80-5.40) m/uL Hgb (11.4-16.0) gm/dL Hct (34.0-46.0) % MCV (80.0-100.0) fL MCH (25.0-35.0) pg MCHC (31.0-37.0) g/dL RDW (11.5-15.5) % Plt Count (150-450) k/uL MPV Neutrophils % % Lymphocytes % % Monocytes % % Eosinophils % % Basophils % % Neutrophils # (1.3-7.7) k/uL Lymphocytes # (1.0-4.8) k/uL Monocytes # (0-1.0) k/uL Eosinophils # (0-0.7) k/uL Basophils # (0-0.2) k/uL PT (9.0-12.0) sec INR (<1.2) APTT (22.0-30.0) sec D-Dimer (<0.60) mg/L FEU Sodium (137-145) mmol/L Potassium (3.5-5.1) mmol/L Chloride (98-107) mmol/L Carbon Dioxide (22-30) mmol/L Anion Gap mmol/L BUN (7-17) mg/dL Creatinine (0.52-1.04) mg/dL Est GFR (CKD-EPI)AfAm (>60 ml/min/1.73 sqM) Est GFR (CKD-EPI)NonAf (>60 ml/min/1.73 sqM) Glucose (74-99) mg/dL Calcium (8.4-10.2) mg/dL Total Bilirubin (0.2-1.3) mg/dL AST (14-36) U/L ALT (4-34) U/L Alkaline Phosphatase (38-126) U/L Total Protein (6.3-8.2) g/dL Albumin (3.5-5.0) g/dL Urine Color Yellow Urine Appearance Clear (Clear) Urine pH 6.5 (5.0-8.0) Ur Specific [place] >1.050 H (1.001-1.035) Urine Protein Negative (Negative) Urine Glucose (UA) Negative (Negative) Urine Ketones Negative (Negative) Urine Blood Negative (Negative) Urine Nitrite Negative (Negative) Urine Bilirubin Negative (Negative) Urine Urobilinogen <2.0 (<2.0) mg/dL Ur Leukocyte Esterase Moderate H (Negative) Urine RBC 3 (0-5) /hpf Urine WBC 14 H (0-5) /hpf Ur Squamous Epith Cells 6 H (0-4) /hpf Disposition <Dave Thomas - Last Filed: 05/20/23 18:02> Is patient prescribed a controlled substance at d/c from ED?: No <FloresitaSu - Last Filed: 05/23/23 01:16> Clinical Impression: Hemoptysis, Cough Disposition: HOME SELF-CARE Condition: Good Instructions (If sedation given, give patient instructions): Coughing Up Blood (Hemoptysis) (ED) Additional Instructions: Follow-up with jig filler in 1 to 2 days. You are also referred to oncologist. Return to the emergency department if you experience new, concerning, or worsening symptoms. Prescriptions: Benzonatate [Tessalon Perles] 100 mg PO TID PRN #15 capsule PRN Reason: Cough Referrals: Randal Evans MD [Primary Care Provider] - 1-2 days Milton Malik [STAFF PHYSICIAN] - 1-2 days
[2023-05-20 20:09] LABS: Basophils % (A) 0 %; Eosinophils # (A) 0.2 k/uL (0-0.7); Eosinophils % (A) 2 %; HCT 43.1 % (34.0-46.0); HGB 14.6 gm/dL (11.4-16.0); Lymphocytes # (A) 1.4 k/uL (1.0-4.8); Lymphocytes % (A) 17 %; MCH 32.8 pg (25.0-35.0); MCHC 33.8 g/dL (31.0-37.0); Mean Platelet Volume 7.7; Monocytes # (A) 0.5 k/uL (0-1.0); Monocytes % (A) 6 %; Neutrophils # (A) 6.1 k/uL (1.3-7.7); Neutrophils % (A) 73 %; Platelet Count 242 k/uL (150-450); RBC 4.44 m/uL (3.80-5.40); RDW 13.4 % (11.5-15.5); WBC 8.3 k/uL (3.8-10.6)
[2023-05-20 20:24] LABS: ALT 15 U/L (4-34); AST 26 U/L (14-36); African American GFR (CKD) >90 (>60 ml/min/1.73 sqM); Albumin 4.4 g/dL (3.5-5.0); Alkaline Phosphatase 84 U/L (38-126); Anion Gap 8 mmol/L; Blood Urea Nitrogen 13 mg/dL (7-17); Calcium 9.8 mg/dL (8.4-10.2); Carbon Dioxide 22 mmol/L (22-30); Chloride 107 mmol/L (98-107); Glucose 92 mg/dL (74-99); INR 0.9 (<1.2); Non-African American GFR(CKD) >90 (>60 ml/min/1.73 sqM); Partial Thromboplastin Time 25.1 sec (22.0-30.0); Potassium 4.4 mmol/L (3.5-5.1); Prothrombin Time 9.6 sec (9.0-12.0); Sodium 137 mmol/L (137-145); Total Bilirubin 0.5 mg/dL (0.2-1.3); Total Protein 8.1 g/dL (6.3-8.2)
--- NOTE | 2023-05-20 20:32 | CT ---
CT CHEST FOR PULMONARY EMBOLISM. EXAMINATION TYPE: CT chest angio for PE DATE OF EXAM: 05/20/2023 INDICATION: r/o pe. pt coughing up blood x1day. hx of lung ca and copd CT DLP: 266.6 mGycm, Automated exposure control for dose reduction was used. CONTRAST: Patient injected with 61ml mL of Isovue 370. COMPARISON: None TECHNIQUE: CT of the chest is performed on a spiral scan at 2 mm thick sections. Study is performed with intravenous contrast timed for evaluation for pulmonary embolism. This will limit additional po rtions of the evaluation. 3-D MIP images reconstructed by the technologist are reviewed on the compu ter in the coronal and sagittal planes. FINDINGS: No persistent filling defects are evident to suggest an acute pulmonary embolism. No mediastinal or hilar adenopathy enlarged by CT criteria is evident. The ascending aorta diameter at the level of the main pulmonary artery is 2.8 cm. The main pulmonary artery diameter at the bifur cation is 2.5 cm. Right apical mass is present. There is pleural thickening along the posterior medial right upper lung field. Limited CT section through the upper abdomen and there is low density 2.3 cm thickening of the left a drenal gland. There is some lytic areas within the upper thoracic spine which can be compatible with metastatic dis ease. IMPRESSIONS: 1. No acute pulmonary embolism. 2. Chronic apical changes which can be compatible with the patient's known lung cancer.
[2023-05-20] MEDS ORDERED: BENZONATATE 100 MG CAP PO STA (22:07)
[2023-05-20 22:14] LABS: Appearance,Urine Clear (Clear); Bilirubin,Urine Negative (Negative); Blood,Urine Negative (Negative); Color,Urine Yellow; Glucose,Urine (UA) Negative (Negative); Ketones,Urine Negative (Negative); Leukocyte Esterase,Urine Moderate (Negative); Nitrite,Urine Negative (Negative); PH, Urine 6.5 (5.0-8.0); Protein,Urine Negative (Negative); RBC,Urine 3 /hpf (0-5); Squamous Epithelial Cell,Urine 6 /hpf (0-4); Urobilinogen,Urine <2.0 mg/dL (<2.0); WBC,Urine 14 /hpf (0-5)
[2023-05-20 22:26] LABS: Specific Gravity,Urine >1.050 (1.001-1.035)
[2023-05-20 22:35] VITALS: BP 119/75; PULSE 98
== END 2023-05-20 22:33 | disposition home or self-care (01) ==
LOC: EC 16:03
DX: R04.2 Hemoptysis (principal); R05.9 Cough, unspecified; J44.9 Chronic obstructive pulmonary disease, unspecified; F32.A Depression, unspecified; Z79.899 Other long term (current) drug therapy; Z87.891 Personal history of nicotine dependence
CPT/HCPCS: 36415; 85379; 80053; 85025; 85610; 85730; 81001; 71275; 99284; Q9967

== ENCOUNTER → 2023-05-20 | Outpatient (CLI) | payer OTHER | END | disposition home or self-care (01) | LOC: LABWHC1 15:01 | PROVIDERS: ATTEND Physician Assistant | DX: R04.2 Hemoptysis (principal) | CPT/HCPCS: 36415; 85379 ==

== ENCOUNTER → 2023-06-13 | Outpatient (CLI) | payer OTHER ==
--- NOTE | 2023-06-14 21:48 | PE ---
EXAMINATION TYPE: PET CT fusion skull to thigh DATE OF EXAM: 06/13/2023 CLINICAL INDICATION:Female, 63 years old with history of R93.89ABNORMAL FINDINGS ON DX IMAGING OF OTH BODY; TECHNIQUE: Following the intravenous administration of 12.2 mCi of F-18 FDG, whole body images are performed from the skull base to the midthigh. Images are reviewed on the computer in the coronal, a xial, and sagittal planes. Reconstructed rotating images are created on independent workstation and reviewed on the computer. A non-contrast CT is performed in conjunction with the PET scan. Glucose level 90 mg/dL CT DLP: 400.77 mGycm, Automated exposure control for dose reduction was used. COMPARISON: CT 05/20/2023, 12/11/2022 and dating back to 12/10/2021, PET/CT None, FINDINGS: Mediastinal SUV mean is 1.2. Hepatic parenchyma SUV mean is 2.3. SKULL BASE AND NECK: No suspicious radiotracer activity. CHEST, MEDIASTINUM, AND HILAR REGION: * Consolidation changes along the right upper lung posteriorly max SUV 4.4 along the posterior aspec t. Few cystic changes are present. * Right axillary lymph node with mild activity max SUV 1.5 measuring up to 7 mm. Not significantly c hanged dating back to 12/10/2021. * Focus of uptake near the right atrium near the right atrial appendage of unclear etiology no obvio us correlation CT max SUV 3.7. ABDOMEN AND PELVIS: Left adrenal nodules measuring up to 3.1 x 2.0 cm Max SUV 4.0 and 2.2 cm left adrenal nodule Max SUV 1.7. The larger FDG avid nodule which was seen dating back to 12/11/2022, has a similar size to that e xam. MUSCULOSKELETAL STRUCTURES: No suspicious radiotracer activity. OTHER CT: Atherosclerosis of the arterial vasculature. Rightward shift of the mediastinum secondary t o postsurgical change. Coronary artery calcifications are mild. Aortic valve leaflet calcifications a re mild. Calcifications within the medulla of the kidneys bilaterally suggesting medullary, nephrocal cinosis.. Right adrenal gland is unremarkable. Scattered colonic diverticula. Fat-containing umbilica l hernia. Uterus is not definitively size and may be surgically absent. Large amount stool throughout the colon. IMPRESSION: 1. Right upper lung consolidation changes with intermediate FDG uptake. This finding is located in t he surgical bed. Given the morphology is relatively stable from 06/09/2022 finding suggests infectious /inflammatory process. 2. Stable size of a FDG avid left adrenal nodule dating back to 12/10/2021.
== END | disposition home or self-care (01) ==
LOC: RADPETMAIN 08:57
PROVIDERS: ATTEND Family Medicine
DX: C34.11 Malignant neoplasm of upper lobe, right bronchus or lung (principal); R93.89 Abnormal findings on diagnostic imaging of other specified body structures; Z98.890 Other specified postprocedural states
CPT/HCPCS: 78815; A9552

== ENCOUNTER 2023-08-13 11:21 | Day surgery (SDC) | payer OTHER ==
[2023-08-11 17:43] VITALS: BMI 24.0
[~2023-08-13 11:21] MED LIST: LACTATED RINGERS 1,000 ML IV SCH; LIDOCAINE 1% (10MG/ML) FOR IV START INTRADERMA PRN; Pre Op ABX Message 1 EACH MISC MISCELLANE ONE
[2023-08-13 12:00] LABS: Glucose,Whole Blood 106 mg/dL (70-110)
[2023-08-13] MEDS ORDERED: fentaNYL (PF) 50 MCG/ML 2 ML AMP ONE (12:09)
[2023-08-13] MEDS ORDERED: PROPOFOL 10 MG/ML 20 ML VIAL IV ONE (12:09)
[2023-08-13] MEDS ORDERED: PHENYLEPHRINE 10 MG/ML 5 ML VIAL ONE (12:09)
[2023-08-13] MEDS ORDERED: SUCCINYLCHOLINE CHLORIDE 200 MG/10 ML VIAL IV ONE (12:09)
[2023-08-13 13:06] VITALS: TEMP 97.5
[2023-08-13 13:31] VITALS: RESP 18
--- NOTE | 2023-08-13 13:49 | P.PCN ---
Date of Procedure: 08/13/23 Preoperative Diagnosis: Preoperative Diagnosis: 1 small cell lung cancer, right upper lobe lobectomy 2 right apical cavitating pulmonary lesion, PET avid, rule out fungus ball, rule out fungal infection, rule out recurrent cancer Postoperative Diagnosis: 1 small cell lung cancer, right upper lobe lobectomy 2 right apical cavitating pulmonary lesion, PET avid, rule out fungus ball, rule out fungal infection, rule out recurrent cancer 3 normal looking right upper lobe stump 4 significant narrowing of the right middle lobe bronchus, due to anatomic distortion and volume loss and pulling effect from a right upper lobectomy Procedure(s) Performed: 1 flexible bronchoscopy, airway inspection 2 endoscopic ultrasound (EBUS) 3 transbronchial needle aspirate ofcavitating right apical lesion 4 bronchial lavage of the right lung Surgeon: Kunal Billings Estimated Blood Loss (ml): 0 Pathology: other Condition: stable Disposition: same day Operative Findings: After obtaining the consent the patient was taken to the OR suite he was intubated and put on MV by anesthesia then the scope was advanced to the ET tube until the Trachea was seen and it was normal and then the valerie appears normal then the scope advanced to the left main and BHAVNA LB1-LB3 were seen and no endobronchial lesions were seen then the scope advanced to the lingula and the LB4 and LB5 were seen and no endobronchial lesions were seen the scope retracted and advanced to the left lower lobes LB6 to LB12 were seen one by one and no endobronchial lesions, then the scope was retracted back to the valerie and advanced to the Right main and RUL lobe stump was within normal limits. Fol lowing that, the scope then retracted and advanced to the BI and RML RB4 and RB5 were seen and no endobronchial lesions were seen then it was retracted and advanced to the RLL RB6 to RB12 were seen one by one and no endobronchial lesions. There was however significant anatomic distortion especially in the right middle lobe bronchus due to pulling effect and volume loss due to a previous lobectomy. I was able to visualize the medial and lateral segment of the right middle lobe. Both are patent yet narrowed. Significant respiratory secretions were encountered in the right lung. Therapeutic suctioning was done. Following that, a bronchial alveolar lavage of the right lung was done with a total of 25-30 mL of fluid was infused and 10 mL was suctioned back. Then EBUS was used and the lymph nodes were examined. Direct measurement of the mediastinum showed no significant lymphadenopathy. However, utilizing ultrasonic visualization of the posterior wall of the bronchus intermedius, sh owed a irregular opacity was measuring around 2 cm in size. Using a 22-gauge vizishot needle, transbronchial needle aspirate of the right apical cavitating opacity was done. A total of 4 passes were done without any complications. No bleeding was encountered. Samples are adequate. The endobronchial ultrasound was removed. The flexible bronchoscope was reinserted for airway suctioning. Airway was clear of any residual rest or secretions Bronchoscope was removed, the patient was extubated and transferred to recovery in stable condition.
[2023-08-13 14:02] VITALS: BP 139/53; PULSE 82
[2023-08-14 06:54] LABS: Cholesterol,BF Source Other; Cholesterol,Body Fluid 4 mg/dL
== END 2023-08-13 14:05 | disposition home or self-care (01) ==
LOC: ORWHC2ENDO 11:21
PROVIDERS: ATTEND Internal Medicine Critical Care Medicine
DX: J98.4 Other disorders of lung (principal); R04.2 Hemoptysis; F32.A Depression, unspecified; F41.9 Anxiety disorder, unspecified; Z79.51 Long term (current) use of inhaled steroids; Z79.83 Long term (current) use of bisphosphonates; Z79.899 Other long term (current) drug therapy; Z85.118 Personal history of other malignant neoplasm of bronchus and lung; Z98.890 Other specified postprocedural states
CPT/HCPCS: 87798 ×3; 87496; 87498; 87529; 88305; 87502; 87634; 87070; 87205; 87116; 87102; 87077; 87186; 87206; 82465; 31629; 31624; 31652; J0330; J3010; J2704; J2371

== ENCOUNTER 2023-10-13 11:34 | Inpatient (IN) | payer OTHER ==
[2023-10-13] MEDS ORDERED: SODIUM CHLORIDE 0.9% 1,000 ML IV STA (12:15)
[2023-10-13] MEDS ORDERED: ALBUTEROL NEBULIZED 2.5 MG/3 ML INHALATION STA (12:15)
[2023-10-13] MEDS ORDERED: methylPREDNISolone SOD SUCCI 125 MG/2 ML VIAL IV STA (12:15)
[2023-10-13] MEDS ORDERED: IPRATROPIUM 0.5 MG/2.5 ML NEBU INHALATION STA (12:15)
--- NOTE | 2023-10-13 12:30 | ED ---
General Adult HPI - General Chief complaint: Shortness of Breath Stated complaint: FLU-COPD Time Seen by Provider: 10/13/23 12:10 Source: patient, RN notes reviewed, old records reviewed Mode of arrival: ambulatory Limitations: no limitations - History of Present Illness Initial comments: 53-year-old female history COPD presents for evaluation of cough, sore throat, dyspnea. Patient states her symptoms have been present for approximately 2 weeks. She's had some episodes of nausea and vomiting. She denies central chest pain. She states she has mild chest pain with cough. No fever. No abd pain. - Related Data Home Medications Medication Instructions Recorded Confirmed Albuterol Sulfate [Ventolin HFA] 2 puff INHALATION RT-QID PRN 12/10/21 08/13/23 Cholecalciferol [Vitamin D3 (125 25 mcg PO DAILY 12/10/21 08/13/23 Mcg = 5000 Iu)] Ipratropium-Albuterol Nebulize 3 ml INHALATION RT-Q6H PRN 02/18/23 08/13/23 [Duoneb 0.5 mg-3 mg/3 ml Soln] busPIRone HCL 5 mg PO TID PRN 02/18/23 08/13/23 Citalopram Hydrobromide [CeleXA] 40 mg PO QAM 05/20/23 08/13/23 Cyanocobalamin (Vitamin B-12) 1,000 mcg PO DAILY 05/20/23 08/13/23 [Vitamin B-12] Fluticasone/Umeclidin/Vilanter 1 puff INHALATION QAM 05/20/23 08/13/23 [Trelegy Ellipta 100-62.5-25] Allergies Allergy/AdvReac Type Severity Reaction Status Date / Time No Known Allergies Allergy Verified 10/13/23 12:07 Review of Systems ROS Statement: Those systems with pertinent positive or pertinent negative responses have been documented in the HPI. ROS Other: All systems not noted in ROS Statement are negative. 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 rt adrenal gland and lung CA at age 29 received both chemo and radiation, brain aneurysm History of Any Multi-Drug Resistant Organisms: None Reported Past Surgical History: Bladder Surgery, Hysterectomy, Tubal Ligation Additional Past Surgical History / Comment(s): R upper lobectomy, rt adrenal gland removed, brain aneurysm clamped years ago,bladder suspension Past Anesthesia/Blood Transfusion Reactions: No Reported Reaction Additional Past Anesthesia/Blood Transfusion Reaction / Comment(s): no problems w/ prior blood transfusion Past Psychological History: Anxiety, Depression Smoking Status: Former smoker Past Alcohol Use History: Rare Past Drug Use History: Marijuana - Past Family History Mother Family Medical History: Cancer Additional Family Medical History / Comment(s): OVARIAN CANCER Sister(s) Additional Family Medical History / Comment(s): RECTAL CANCER Brother(s) Family Medical History: Cancer Additional Family Medical History / Comment(s): LUNG CANCER General Exam Limitations: no limitations General appearance: alert, in no apparent distress Head exam: Present: atraumatic, normocephalic Eye exam: Present: normal appearance, PERRL ENT exam: Present: mucous membranes dry Neck exam: Present: normal inspection. Absent: tenderness, meningismus Respiratory exam: Present: rhonchi. Absent: respiratory distress Cardiovascular Exam: Present: normal rhythm, tachycardia GI/Abdominal exam: Present: soft. Absent: distended, tenderness, guarding Extremities exam: Present: normal inspection, normal capillary refill Neurological exam: Present: alert, oriented X3, CN II-XII intact. Absent: motor sensory deficit Psychiatric exam: Present: normal affect, normal mood Skin exam: Present: warm, dry, intact Course Vital Signs 10/13/23 10/13/23 10/13/23 12:04 13:26 13:36 Temperature 97.8 F Pulse Rate 60 96 103 H Respiratory 18 18 18 Rate Blood Pressure 78/51 O2 Sat by Pulse 90 L Oximetry 10/13/23 14:30 Temperature Pulse Rate 105 H Respiratory 18 Rate Blood Pressure 117/61 O2 Sat by Pulse 97 Oximetry Medical Decision Making - Medical Decision Making Was pt. sent in by a medical professional or institution (, PA, [employer], urgent care, hospital, or [place] health care facility...) When possible be specific @ -No Did you speak to anyone other than the patient for history (EMS, parent, family, police, friend...)? What history was obtained from this source @ -No Did you review nursing and triage notes (agree or disagree)? Why? @ -I reviewed and agree with nursing and triage notes Were old charts reviewed (outside hosp., previous admission, EMS record, old EKG, old radiological studies, urgent care reports/EKG's, [place] health care facility records)? Report findings @ -No old charts were reviewed Differential Diagnosis (chest pain, altered mental status, abdominal pain women, abdominal pain men, vaginal bleeding, weakness, fever, dyspnea, syncope, headache, dizziness, GI bleed, back pain, seizure, CVA, palpatations, mental health, musculoskeletal)? @ -[Differential Dyspnea: Coronary syndrome, arrhythmia, tamponade, asthma, COPD, pulmonary embolism, pneumonia, pneumothorax, pulmonary effusion, anaphylaxis, diabetic ketoacidosis, flailed chest, pulmonary contusion, diaphragmatic rupture, anemia, neuromuscular, this is not meant to be an all-inclusive list. EKG interpreted by me (3pts min.). @ -Sinus tachycardia rate of 108, ER interval 164, QS duration 106, QTC [address] segment elevation. X-rays interpreted by me (1pt min.). @ chest x-ray showing concern for pneumonia CT interpreted by me (1pt min.). @ -CT angiogram negative for PE but does show multiple areas pneumonia and cavitation. U/S interpreted by me (1pt. min.). @ -None done What testing was considered but not performed or refused? (CT, X-rays, U/S, labs)? Why? @ -None What meds were considered but not given or refused? Why? @ -None Did you discuss the management of the patient with other professionals (professionals i.e. , PA, [employer], lab, RT, psych nurse, high school social studies teacher, winch derrick operator, teacher, canine enforcement officer, case monitor)? Give summary @ -No Was smoking cessation discussed for >3mins.? @ -No Was critical care preformed (if so, how long)? @ -yes, 35 min Were there social determinants of health that impacted care today? How? (Homelessness, low income, unemployed, alcoholism, drug addiction, transportation, low edu. Level, literacy, decrease access to med. care, usp, rehab)? @ -No Was there de-escalation of care discussed even if they declined (Discuss DNR or withdrawal of care, Hospice)? DNR status @ -No What co-morbidities impacted this encounter? (DM, HTN, Smoking, COPD, CAD, Cancer, CVA, ARF, Chemo, Hep., AIDS, mental health diagnosis, sleep apnea, morbid obesity)? @ -copd, lung CA Was patient admitted / discharged? Hospital course, mention meds given and route, prescriptions, significant lab abnormalities, going to OR and other pertinent info. @ -[pt admitted, with multifocal pneumonia, cavitary pneumonia. Patient's on ceftriaxone and azithromycin and vancomycin. She has an elevated white blood cell count. Additionally she is treated with steroids and bronchodilators PG is admitted to internal medicine with pulmonology on consult. Undiagnosed new problem with uncertain prognosis? @ -No Drug Therapy requiring intensive monitoring for toxicity (Heparin, Nitro, Insulin, Cardizem)? @ -No Were any procedures done? @ -No Diagnosis/symptom? @PNA, sepsis Acute, or Chronic, or Acute on Chronic? @ -[acute Uncomplicated (without systemic symptoms) or Complicated (systemic symptoms)? @ -[complicated Side effects of treatment? @ -No Exacerbation, Progression, or Severe Exacerbation? @ -No Poses a threat to life or bodily function? How? (Chest pain, [place], [place], pneumonia, PE, COPD, DKA, ARF, appy, cholecystitis, CVA, Diverticulitis, Homicidal, S uicidal, threat to staff... and all critical care pts) @ -yes, resp failure, Sepsis - Lab Data Result diagrams: 10/13/23 12:22 10/13/23 12:22 Lab Results 10/13/23 10/13/23 10/13/23 Range/Units 12:22 12:22 12:22 WBC 19.3 H (3.8-10.6) k/uL RBC 4.14 (3.80-5.40) m/uL Hgb 13.4 (11.4-16.0) gm/dL Hct 40.5 (34.0-46.0) % MCV 98.0 (80.0-100.0) fL MCH 32.3 (25.0-35.0) pg MCHC 33.0 (31.0-37.0) g/dL RDW 13.8 (11.5-15.5) % Plt Count 285 (150-450) k/uL MPV 8.4 Neutrophils % (Manual) 90 % Band Neuts % (Manual) 3 % Lymphocytes % (Manual) 1 % Monocytes % (Manual) 3 % Metamyelocytes % 4 % Neutrophils # (Manual) 17.90 H (1.3-7.7) k/uL Lymphocytes # (Manual) 0.19 L (1.0-4.8) k/uL Monocytes # (Manual) 0.58 (0-1.0) k/uL Metamyelocytes # (Man) 0.77 H (0) k/uL Nucleated RBCs 0 (0-0) /100 WBC Manual Slide Review Performed Toxic Granulation Present Toxic Vacuolation Present PT 10.4 (10.0-12.5) sec INR 0.9 (<1.2) APTT 26.6 (22.0-30.0) sec D-Dimer 1.45 H (<0.60) mg/L FEU Sodium 135 L (137-145) mmol/L Potassium 3.1 L (3.5-5.1) mmol/L Chloride 101 (98-107) mmol/L Carbon Dioxide 24 (22-30) mmol/L Anion Gap 10 mmol/L BUN 18 H (7-17) mg/dL Creatinine 0.68 (0.52-1.04) mg/dL Est GFR (CKD-EPI)AfAm >90 (>60 ml/min/1.73 sqM) Est GFR (CKD-EPI)NonAf >90 (>60 ml/min/1.73 sqM) Glucose 144 H (74-99) mg/dL Plasma Lactic Acid Jeromy (0.7-2.0) mmol/L Calcium 9.1 (8.4-10.2) mg/dL Magnesium 1.9 (1.6-2.3) mg/dL Total Bilirubin 0.8 (0.2-1.3) mg/dL AST 23 (14-36) U/L ALT 23 (4-34) U/L Alkaline Phosphatase 158 H (38-126) U/L Troponin I (0.000-0.034) ng/mL NT-Pro-B Natriuret Pep 827 pg/mL Total Protein 6.3 (6.3-8.2) g/dL Albumin 3.2 L (3.5-5.0) g/dL Influenza Type A (PCR) (Not Detectd) Influenza Type B (PCR) (Not Detectd) RSV (PCR) (Not Detectd) SARS-CoV-2 (PCR) (Not Detectd) 10/13/23 10/13/23 10/13/23 Range/Units 12:22 12:22 12:23 WBC (3.8-10.6) k/uL RBC (3.80-5.40) m/uL Hgb (11.4-16.0) gm/dL Hct (34.0-46.0) % MCV (80.0-100.0) fL MCH (25.0-35.0) pg MCHC (31.0-37.0) g/dL RDW (11.5-15.5) % Plt Count (150-450) k/uL MPV Neutrophils % (Manual) % Band Neuts % (Manual) % Lymphocytes % (Manual) % Monocytes % (Manual) % Metamyelocytes % % Neutrophils # (Manual) (1.3-7.7) k/uL Lymphocytes # (Manual) (1.0-4.8) k/uL Monocytes # (Manual) (0-1.0) k/uL Metamyelocytes # (Man) (0) k/uL Nucleated RBCs (0-0) /100 WBC Manual Slide Review Toxic Granulation Toxic Vacuolation PT (10.0-12.5) sec INR (<1.2) APTT (22.0-30.0) sec D-Dimer (<0.60) mg/L FEU Sodium (137-145) mmol/L Potassium (3.5-5.1) mmol/L Chloride (98-107) mmol/L Carbon Dioxide (22-30) mmol/L Anion Gap mmol/L BUN (7-17) mg/dL Creatinine (0.52-1.04) mg/dL Est GFR (CKD-EPI)AfAm (>60 ml/min/1.73 sqM) Est GFR (CKD-EPI)NonAf (>60 ml/min/1.73 sqM) Glucose (74-99) mg/dL Plasma Lactic Acid Jeromy 2.7 H* (0.7-2.0) mmol/L Calcium (8.4-10.2) mg/dL Magnesium (1.6-2.3) mg/dL Total Bilirubin (0.2-1.3) mg/dL AST (14-36) U/L ALT (4-34) U/L Alkaline Phosphatase (38-126) U/L Troponin I <0.012 (0.000-0.034) ng/mL NT-Pro-B Natriuret Pep pg/mL Total Protein (6.3-8.2) g/dL Albumin (3.5-5.0) g/dL Influenza Type A (PCR) Not Detected (Not Detectd) Influenza Type B (PCR) Not Detected (Not Detectd) RSV (PCR) Not Detected (Not Detectd) SARS-CoV-2 (PCR) Not Detected (Not Detectd) Critical Care Time Critical Care Time: Yes Total Critical Care Time: 35 Disposition Clinical Impression: COPD (chronic obstructive pulmonary disease), Lung consolidation Disposition: ADMITTED IP TO THIS [facility] Condition: Serious Is patient prescribed a controlled substance at d/c from ED?: No Referrals: None,Stated [REFERRING] - 1-2 days Time of Disposition: 14:53
[2023-10-13 13:08] LABS: HCT 40.5 % (34.0-46.0); HGB 13.4 gm/dL (11.4-16.0); MCH 32.3 pg (25.0-35.0); Mean Platelet Volume 8.4; Platelet Count 285 k/uL (150-450); RBC 4.14 m/uL (3.80-5.40); RDW 13.8 % (11.5-15.5); WBC 19.3 k/uL (3.8-10.6)
[2023-10-13 13:11] LABS: INR 0.9 (<1.2); Partial Thromboplastin Time 26.6 sec (22.0-30.0); Prothrombin Time 10.4 sec (10.0-12.5)
--- NOTE | 2023-10-13 13:16 | XR ---
EXAMINATION TYPE: XR chest 2V DATE OF EXAM: 10/13/2023 COMPARISON: 12/11/2021 TECHNIQUE: PA and lateral views submitted. HISTORY: Difficulty in breathing FINDINGS: The heart is enlarged. There is prominence along the right heart border compatible with a prominent p ericardial fat pad\diaphragmatic hernia noted by previous CT scan.. Right apical pleural thickening w ith a new area of vague consolidation in the periphery of the right midlung. Underlying COPD with no sizable pleural effusion or pneumothorax. Degenerative changes of the spine. IMPRESSION: 1. COPD with persistent apical pleural thickening. However, there is a new area of vague consolidatio n in the lateral margin of the right midlung. Correlate for pneumonia.
[2023-10-13 13:19] LABS: ALT 23 U/L (4-34); AST 23 U/L (14-36); African American GFR (CKD) >90 (>60 ml/min/1.73 sqM); Albumin 3.2 g/dL (3.5-5.0); Alkaline Phosphatase 158 U/L (38-126); Anion Gap 10 mmol/L; Blood Urea Nitrogen 18 mg/dL (7-17); Calcium 9.1 mg/dL (8.4-10.2); Carbon Dioxide 24 mmol/L (22-30); Chloride 101 mmol/L (98-107); Glucose 144 mg/dL (74-99); Magnesium 1.9 mg/dL (1.6-2.3); Non-African American GFR(CKD) >90 (>60 ml/min/1.73 sqM); Potassium 3.1 mmol/L (3.5-5.1); Sodium 135 mmol/L (137-145); Total Bilirubin 0.8 mg/dL (0.2-1.3); Total Protein 6.3 g/dL (6.3-8.2)
[2023-10-13] MEDS ORDERED: AZITHROMYCIN 500 MG in SODIUM CHLORIDE 0.9% 250 ML IVPB STA (13:24)
[2023-10-13 13:28] LABS: NT-Pro-B-Type Natriuretic Pept 827 pg/mL
[2023-10-13 13:46] LABS: Band Neutrophils % 3 %; Lymphocytes # (M) 0.19 k/uL (1.0-4.8); Metamyelocytes # (M) 0.77 k/uL (0); Metamyelocytes % 4 %; Monocytes # (M) 0.58 k/uL (0-1.0); Neutrophils % (M) 90 %; Nucleated Red Blood Cells 0 /100 WBC (0-0); Total Cells Counted 200
[2023-10-13] MEDS ORDERED: POTASSIUM CHLORIDE ER 20 MEQ TAB.ER PO STA (14:05)
[2023-10-13] MEDS ORDERED: SODIUM CHLORIDE 0.9% 1,000 ML IV SCH (14:15)
--- NOTE | 2023-10-13 14:37 | CT ---
EXAMINATION TYPE: CT angio chest DATE OF EXAM: 10/13/2023 COMPARISON: 05/20/2023 and 06/13/2023 HISTORY: 63-year-old female shortness of breath, PE TECHNIQUE: Contiguous axial scanning of the chest after the administration of 80 mL of Isovue 370. C oronal/sagittal MIP reconstructions performed. CT DLP: 259.3mGycm. Automatic exposure control utilized for a dose reduction. FINDINGS: Heart normal size without pericardial effusion. No flattening of the interventricular septum. There i s a sizable morganii hernia measuring up to nearly 10 cm on the right side of the heart. Ectatic aortic root at 3.6 cm. Scattered mild atherosclerotic calcifications and plaque throughout th e thoracic aorta. Possible moderate to severe focal stenosis proximal left common carotid artery. Possible severe atherosclerotic narrowing at the proximal right subclavian artery. Posttreatment volume loss and consolidation medial right upper lobe. There is new and worsening airsp lesia opacity extensively present throughout the lateral right upper lobe with internal areas of air ca vitation such as axial image 40. Patchy peripheral opacities and groundglass change in the right carotid and left lower lungs. Abnorma l consolidation inferior lingula with some possible cavitary change here as well, axial image 68. Satisfactory opacification of the pulmonary total system. No pulmonary embolus is seen. Left hilar lymph node measuring 9 mm probably reactive. Visualized upper abdomen shows a 2.9 cm left adrenal mass. Please see measuring 2.4 cm. Surgical clip s right retroperitoneum. Bones: Accentuated midthoracic kyphosis. Anterior wedge deformities of T6, T7, and T8. These appear s imilar to prior. IMPRESSION: 1. Suspected posttreatment change medial right upper lobe but with new extensive airspace disease and consolidation extending from here to the periphery of the right upper lobe. There also appear to be internal areas of cavitation. Correlate for possible severe pneumonia with cavitary change. 2. Other multifocal infiltrates especially in the mid and lower lungs have developed. There may be a second area of early cavitation in the inferior lingula. Given these changes, correlate to exclude th e possibility of atypical fungal/mycobacterial infections. 3. A left adrenal mass is lightly larger at 2.9 cm versus 2.4 cm, previously. Appropriate oncologic f ollow-up advised. 4. No pulmonary embolus seen. 5. Possible severe atherosclerotic stenosis proximal right subclavian artery as well as the proximal left common carotid artery. 6. 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
[2023-10-13 14:38] LABS: Toxic Granulation Present; Toxic Vacuolation Present
[2023-10-13] MEDS ORDERED: NALOXONE 0.4 MG/ML 1 ML VIAL IVP PRN (14:49)
[2023-10-13] MEDS ORDERED: IPRATROPIUM-ALBUTEROL 3 ML NEB INHALATION PRN (14:49)
[2023-10-13] MEDS ORDERED: VANCOMYCIN IV PER PHARMACY 1 EACH MISC MISCELLANE PRN (14:50)
[2023-10-13] MEDS ORDERED: VANCOMYCIN 1,250 MG in SODIUM CHLORIDE 0.9% 250 ML IVPB ONE (15:15)
[2023-10-13] MEDS: IPRATROPIUM-ALBUTEROL 3 ML NEB INHALATION SCH ×2 (16:40→19:55)
[2023-10-13] MEDS: ACETAMINOPHEN TAB 325 MG TAB PO PRN (17:53)
[2023-10-13] MEDS: methylPREDNISolone SOD SUCCI 125 MG/2 ML VIAL IV SCH ×2 (17:54→23:32)
[2023-10-13] MEDS: LACTATED RINGERS 1,000 ML IV SCH ×2 (21:54→23:27)
[2023-10-13] MEDS: POTASSIUM CHLORIDE ER 20 MEQ TAB.ER PO SCH (21:54)
[2023-10-13] MEDS ORDERED: DEXTROSE 5%-0.2% NACL 1,000 ML IV SCH (22:00)
[2023-10-13] MEDS: ALPRAZolam 0.25 MG TAB PO PRN (23:27)
[2023-10-13] MEDS: CEFEPIME 2 GM in SODIUM CHLORIDE 0.9% 100 ML IVPB SCH (23:35)
[2023-10-14 03:00] LABS: ALT 28 U/L (4-34); AST 25 U/L (14-36); African American GFR (CKD) >90 (>60 ml/min/1.73 sqM); Albumin 2.6 g/dL (3.5-5.0); Alkaline Phosphatase 125 U/L (38-126); Anion Gap 4 mmol/L; Blood Urea Nitrogen 12 mg/dL (7-17); Calcium 8.3 mg/dL (8.4-10.2); Carbon Dioxide 24 mmol/L (22-30); Chloride 106 mmol/L (98-107); Glucose 203 mg/dL (74-99); Non-African American GFR(CKD) >90 (>60 ml/min/1.73 sqM); Potassium 3.5 mmol/L (3.5-5.1); Sodium 134 mmol/L (137-145); Total Bilirubin 0.4 mg/dL (0.2-1.3); Total Protein 5.4 g/dL (6.3-8.2)
[2023-10-14 03:33] LABS: Basophils % (A) 0 %; Eosinophils % (A) 0 %; HCT 32.9 % (34.0-46.0); HGB 10.7 gm/dL (11.4-16.0); Lymphocytes # (A) 0.3 k/uL (1.0-4.8); Lymphocytes % (A) 2 %; MCH 32.4 pg (25.0-35.0); MCHC 32.6 g/dL (31.0-37.0); MCV 99.5 fL (80.0-100.0); Mean Platelet Volume 9.3; Monocytes # (A) 0.4 k/uL (0-1.0); Monocytes % (A) 2 %; Neutrophils # (A) 19.1 k/uL (1.3-7.7); Neutrophils % (A) 96 %; Platelet Count 276 k/uL (150-450); RBC 3.31 m/uL (3.80-5.40); RDW 14.2 % (11.5-15.5)
[2023-10-14] MEDS: PANTOPRAZOLE 40 MG TABLET PO SCH ×2 (04:55→17:13)
--- NOTE | 2023-10-14 05:23 | P.CNPUL ---
History of Present Illness Consult date: 10/14/23 Requesting physician: Chris Bhatti Reason for consult: COPD, pneumonia, lung mass Chief complaint: Shortness of breath and cough History of present illness: I am seeing this patient in consultation today 10/14/2023 after she was admitted with progressively worsening shortness of breath and a persistent cough for the last 2-3 weeks. 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 She's had previous bronchoscopies and follows with Dr. Billings in the pulmonary office. Jan, 2022 she had a bronchoscopy with BAL of the right lower lobe. No cytologically malignant cells were identified. Cultures positive for Bordetella bronchiseptica. Fungal cultures negative for Aspergillus. At that time, the patient completed a course of Levaquin. A PET scan done May, de monstrated right upper lobe consolidation changes with intermediate FDG uptake at the prior surgical bed. Lesion was cavitating and suspicious for inflammatory/infectious disease process. There was also a stable size FDG avid left adrenal nodule. A follow-up bronchoscopy was done on 08/13/2023 there was significant narrowing of the right middle lobe bronchus due to anatomic distortion and volume loss and pulling effect from the previous right upper lobectomy. A transbronchial needle aspirate of the cavitating lesion was again negative for any cytologically malignant cells. Cultures were positive for Staphylococcus aureus, thought to be contaminant. Fungal cultures again negative for fungal infection or Aspergillus. Patient returned to the emergency room yesterday afternoon complaining of progressively worsening shortness of breath, cough, and chest congestion. This is been ongoing for 2-3 weeks. Note, that approximately one month ago, she did test positive for COVID-19 outpatient with a home test. She was not hospitalized. She is currently sitting in bed, on 2 L/m nasal cannula, in no acute distress. She states her shortness of breath is worse with activity. Cough is persistent and productive with occasional brown sputum. She has lost her voice. She also endorses right-sided chest pain with coughing and mild fevers outpatient. Last episode of hemoptysis was prior to Francine and small. Chest CTA on arrival demonstrates posttreatment volume loss and surgical ch anges, new extensive airspace disease and consolidation extending in the periphery of presumably the right middle lobe with areas of cavitation. There are other multifocal infiltrates especially in the mid and lower lungs, and may be secondary area of early cavitation and inferior lingula concerning for possible atypical fungal/mycobacterial infection. There is a concerning enlargement of the left adrenal mass measuring 2.9 cm versus 2.4 cm previously. There are other incidental findings. CBC from today: WBC count of 20, hemoglobin 10.7, hematocrit 32.9, platelets 76. BMP from today: Sodium 134, potassium 3.5, chloride 106, serum bicarb 24, BUN 12, creatinine 0.39, glucose 203. Lactic acid level peaked at 4.8 and is down to 1.2. Aspergillus antibodies are pending. Urine Legionella antigen pending. Blood cultures are pending. Patient is currently on broad-spectrum antibiotics in the form of cefepime and vancomycin. Also, receiving combination of bronchodilators, Symbicort inhaler, and IV Solu-Medrol. Negative for influenza, RSV, COVID-19. Vital signs are stable. Review of Systems REVIEW OF SYSTEMS: CONSTITUTIONAL: Denies any recent significant weight loss or weight gain. EYES: Denies change in vision. EARS, NOSE, MOUTH, THROAT: Denies headaches, denies sore throat. CARDIOVASCULAR: Denies radiating chest pain, palpitations or syncopal episodes. RESPIRATORY: See HPI. GASTROINTESTINAL: Denies change in appetite, abdominal pain, vomiting, or diarrhea . Admits occasional nausea without vomiting and brief self-limiting episode of diarrhea GENITOURINARY: Denies hematuria, denies infections. MUSKULOSKELETAL: Admits right shoulder pain with some swelling at the right scapular border. Denies trauma INTEGUMENTARY: Denies rash, denies eczema. NEUROLOGICAL: Denies recent memory loss, no recent seizure activity. PSYCHIATRIC: Denies anxiety, denies depression. HEMATOLOGIC/LYMPHATIC: Denies anemia, denies enlarged lymph node Past Medical History Past Medical History: Cancer, COPD Additional Past Medical History / Comment(s): last dose prednisone taper dose will be taken on 08-12-23, aspergillus fungal infection 2020-tx for two years . rt adrenal gland and lung CA at age 29 received both chemo and radiation, brain aneurysm History of Any Multi-Drug Resistant Organisms: None Reported Past Surgical History: Bladder Surgery, Hysterectomy, Tubal Ligation Additional Past Surgical History / Comment(s): R upper lobectomy, rt adrenal gland removed, brain aneurysm clamped years ago,bladder suspension Past Anesthesia/Blood Transfusion Reactions: No Reported Reaction Additional Past Anesthesia/Blood Transfusion Reaction / Comment(s): no problems w/ prior blood transfusion Smoking Status: Former smoker - Past Family History Mother Family Medical History: Cancer Additional Family Medical History / Comment(s): OVARIAN CANCER Sister(s) Additional Family Medical History / Comment(s): RECTAL CANCER Brother(s) Family Medical History: Cancer Additional Family Medical History / Comment(s): LUNG CANCER Medications and Allergies Home Medications Medication Instructions Recorded Confirmed Type Albuterol Sulfate [Ventolin HFA] 2 puff INHALATION RT-QID PRN 12/10/21 10/13/23 History Cholecalciferol [Vitamin D3 (125 25 mcg PO DAILY 12/10/21 10/13/23 History Mcg = 5000 Iu)] Ipratropium-Albuterol Nebulize 3 ml INHALATION RT-Q6H PRN 02/18/23 10/13/23 History [Duoneb 0.5 mg-3 mg/3 ml Soln] busPIRone HCL 5 mg PO TID PRN 02/18/23 10/13/23 History Citalopram Hydrobromide [CeleXA] 40 mg PO QAM 05/20/23 10/13/23 History Cyanocobalamin (Vitamin B-12) 1,000 mcg PO DAILY 05/20/23 10/13/23 History [Vitamin B-12] Fluticasone/Umeclidin/Vilanter 1 puff INHALATION QAM 05/20/23 10/13/23 History [Trelegy Ellipta 100-62.5-25] Allergies Allergy/AdvReac Type Severity Reaction Status Date / Time No Known Allergies Allergy Verified 10/13/23 15:48 Physical Exam Vitals: Vital Signs Temp Pulse Pulse Resp BP BP Pulse Ox 10/14/23 00:00 98.2 F 99 20 103/63 96 10/13/23 20:57 99 F 107 H 22 127/74 99 10/13/23 20:05 99 10/13/23 20:04 101 H 19 130/71 97 10/13/23 19:55 102 H 10/13/23 19:20 99 20 97/63 92 L 10/13/23 18:00 107 H 20 112/69 94 L 10/13/23 17:00 107 H 20 116/69 95 10/13/23 16:50 108 H 18 10/13/23 16:40 104 H 18 10/13/23 16:00 105 H 20 111/66 95 10/13/23 15:00 105 H 20 117/61 96 10/13/23 14:30 105 H 18 117/61 97 10/13/23 13:36 103 H 18 10/13/23 13:26 96 18 10/13/23 12:07 20 10/13/23 12:04 97.8 F 60 18 78/51 90 L Intake and Output 10/13/23 10/13/23 10/14/23 14:59 22:59 06:59 Output Total 600 Balance -600 Output: Urine 600 Other: Weight 63.503 kg GENERAL EXAM: Alert, 63-year-old white female, comfortable in no apparent distress. Voice is hoarse. HEAD: Normocephalic and atraumatic EYES: Normal reaction of pupils, equal size. NOSE: Clear with pink turbinates. THROAT: No erythema or exudates. NECK: No masses, no JVD. CHEST: No chest wall deformity. LUNGS: Equal air entry with scattered rhonchi and right-sided dullness. On 2 L/m nasal cannula. No conversational dyspnea or accessory muscle use.. CVS: S1 and S2 normal with no audible murmur, regular rhythm. No extra heart sounds ABDOMEN: No hepatosplenomegaly, active bowel sounds, no guarding or rigidity. SPINE: No scoliosis or deformity. Right lateral soft tissue swelling at the scapular level SKIN: No rashes CENTRAL NERVOUS SYSTEM: No focal deficits, tone is normal in all 4 extremities. EXTREMITIES: There is no peripheral edema, clubbing, or cyanosis. Peripheral pulses are intact. Results - Laboratory Findings CBC and BMP: 10/14/23 02:08 10/14/23 02:08 PT/INR, D-dimer PT 10.4 sec (10.0-12.5) 10/13/23 12:22 INR 0.9 (<1.2) 10/13/23 12:22 D-Dimer 1.45 mg/L FEU (<0.60) H 10/13/23 12:22 Abnormal lab findings: Abnormal Labs 10/13/23 10/13/23 10/13/23 12:22 12:22 12:22 WBC 19.3 H Neutrophils # (Manual) 17.90 H Lymphocytes # (Manual) 0.19 L Metamyelocytes # (Man) 0.77 H D-Dimer 1.45 H Sodium 135 L Potassium 3.1 L BUN 18 H Creatinine Glucose 144 H Plasma Lactic Acid Jeromy Calcium Alkaline Phosphatase 158 H Total Protein Albumin 3.2 L 10/13/23 10/13/23 10/13/23 12:22 17:18 20:31 WBC Neutrophils # (Manual) Lymphocytes # (Manual) Metamyelocytes # (Man) D-Dimer Sodium Potassium BUN Creatinine Glucose Plasma Lactic Acid Jeromy 2.7 H* 4.2 H* 4.8 H* Calcium Alkaline Phosphatase Total Protein Albumin 10/13/23 10/14/23 23:11 02:08 WBC Neutrophils # (Manual) Lymphocytes # (Manual) Metamyelocytes # (Man) D-Dimer Sodium 134 L Potassium BUN Creatinine 0.39 L Glucose 203 H Plasma Lactic Acid Jeromy 2.8 H* Calcium 8.3 L Alkaline Phosphatase Total Protein 5.4 L Albumin 2.6 L - Diagnostic Findings Chest x-ray: image reviewed CT scan - chest: image reviewed Assessment and Plan Assessment: New large right sided cavitating masslike consolidation, Chest CTA on arrival demonstrates posttreatment volume loss and surgical changes on the right, new extensive airspace disease and consolidation extending in the periphery of presumably the right middle lobe with areas of cavitation. There are other multifocal infiltrates especially in the mid and lower lungs, and may be secondary area of early cavitation and inferior lingula concerning for possible atypical fungal/mycobacterial infection. Rule out recurrent fungal infection, severe cavitating bacterial pneumonia or recurrent malignancy. Acute COPD exacerbation, secondary to above Leukocytosis Lactic acidemia, improved Remote history of small cell lung cancer, status post chemoradiation and previous right upper lobectomy and right adrenalectomy History of aspergilloma, 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 Follow-up bronchoscopies and fungal cultures negative for Aspergillus 2. History of recurrent hemoptysis, inactive Mild normocytic, normochromic anemia Concerning enlarging left adrenal mass measuring 2.9 versus 2.4 cm previously. Recent history of COVID-19 infection, not requiring hospitalization. 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 I did speak with Dr. Billings, and the recommendation is for follow-up bronchoscopy with biopsies, possibly to be done later today. Patient is nothing by mouth. Not on any anticoagulation. This was discussed with the patient at length, and the patient is receptive to this plan. Keep the patient NPO. In the meantime, the patient is covered on broad-spectrum antibiotics. Aspergillus antibodies pending Urine legionella antigen pending Procalcitonin pending Negative for influenza, RSV, COVID-19. Start patient on combination of Duo nebs, Symbicort inhaler, and IV Solumedrol Continue supplemental oxygen, currently on 2L/m nasal cannula. Interventional radiology consult for biopsy of the enlarging left adrenal nodule. We will continue to follow and further recommendations are forthcoming. I have personally seen and examined the patient, performed the documentation and the assessment and plan as written. Number of minutes spent on the visit:20 Time with Patient: Greater than 30
[2023-10-14] MEDS: methylPREDNISolone SOD SUCCI 125 MG/2 ML VIAL IV SCH ×3 (06:26→17:13)
[2023-10-14] MEDS: VANCOMYCIN 1,250 MG in SODIUM CHLORIDE 0.9% 250 ML IVPB SCH ×2 (06:28→17:21)
[2023-10-14] MEDS: SODIUM CHLORIDE 0.9% 1,000 ML IV SCH ×2 (06:28→17:22)
[2023-10-14] MEDS: IPRATROPIUM-ALBUTEROL 3 ML NEB INHALATION SCH ×4 (08:18→22:02)
[2023-10-14] MEDS: SYMBICORT 160-4.5 MCG INHALER INHALATION SCH ×2 (08:19→22:03)
[2023-10-14] MEDS: POTASSIUM CHLORIDE ER 20 MEQ TAB.ER PO SCH ×3 (09:28→21:13)
[2023-10-14] MEDS: CEFEPIME 2 GM in SODIUM CHLORIDE 0.9% 100 ML IVPB SCH ×2 (09:28→21:13)
[2023-10-14] MEDS: ACETAMINOPHEN TAB 325 MG TAB PO PRN (09:30)
[2023-10-14] MEDS: ALPRAZolam 0.25 MG TAB PO PRN (09:30)
[2023-10-14] MEDS: HYDROcodone/APAP 7.5-325MG 1 EACH TAB PO PRN ×2 (11:50→21:13)
[2023-10-14] MEDS ORDERED: LIDOCAINE 2% INJ 20 MG/ML INTRATRACH ONE ×2 (12:20→12:41)
--- NOTE | 2023-10-14 12:26 | P.CNPUL ---
History of Present Illness Consult date: 10/14/23 Reason for consult: pneumonia History of present illness: 63-year-old female patient was being seen in consultation for worsening shortness of breath. The patient's symptoms started approximately 8-10 days ago. She was started with increased dyspnea, cough, congestion and she was also experiencing pain in her right posterior upper chest area. She ultimately decided to come in to the hospital where she was diagnosed having a right upper lobe pneumonia. The patient is very well-known to me. The patient has a remote history of small cell lung cancer and she has undergone a previous right upper lobe resection followed by chemotherapy and radiation therapy. 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 Moncho Dawson. . Note that, the patient presented to us back in 2021 with hemoptysis. At that time, a bronchoscopy was done and the cultures were positive for Bordetella bronchiseptica. Fungal cultures negative for Aspergillus. At that time, the patient completed a course of Levaquin. A PET scan done May, demonstrated right upper lobe consolidation changes with intermediate FDG uptake at the prior surgical bed. Lesion was cavitating and suspicious for inflammatory/infectious disease process. There was also a stable size FDG avid left adrenal nodule. A follow-up bronchoscopy was done on 08/13/2023 there was significant narrowing of the right middle lobe bronchus due to anatomic distortion and volume loss and pulling effect from the previous right upper lobectomy. A transbronchial needle aspirate of the cavitating lesion was again negative for any cytologically malignant cells. Cultures were positive for Staphylococcus aureus, thought to be contaminant. Fungal cultures again negative for fungal infection or Aspergillus. For now, there is a concern that the patient has a extensive right upper lobe pneumonia. A CAT scan of the chest was repeated in the emergency department shows volume loss in the right lung which is quite expected. At the same time, there was extensive consolidation in the upper part of the lungs with some gas formation suggestive of a cavitating/necrotizing pneumonia. At the same time, there was enlargement of a left adrenal opacity which was currently measuring around 2.9 cm in size compared to 2.4 cm in size on previous evaluation. Note that a previous PET scan also showed some metabolic activity in the adrenal gland. As such, the patient was hospitalized. Her lochia still was elevated at 4.8 and dropped down to 1.2. The white cell count is elevated and the patient has a white cell count of 20 with a hemoglobin 10.7, her pro-calcitonin level is at 13.4. BUN is at 12 with a creatinine of 0.38 and a sodium level is at 139. The patient is currently on 2 L of oxygen by nasal cannula. She is hemodynamically stable. Affect was slightly hypotensive at time of admission and this improved with fluids. She is scheduled to underwent bronchoscopy and the bronchial lavage of the right lung to establish microbial diagnosis. Meanwhile, the patient was started on a combination of cefepime and vancomycin. Noted the patient was also infected with Covid 19 approximately a month ago and this was treated on outpatient basis without any hospitalization. Review of Systems CONSTITUTIONAL: Denies any recent significant weight loss or weight gain. EYES: Denies change in vision. EARS, NOSE, MOUTH, THROAT: Denies headaches, denies sore throat. CARDIOVASCULAR: Denies radiating chest pain, palpitations or syncopal episodes. RESPIRATORY: See HPI. GASTROINTESTINAL: Denies change in appetite, abdominal pain, vomiting, or diarrhea . Admits occasional nausea without vomiting and brief self-limiting episode of diarrhea GENITOURINARY: Denies hematuria, denies infections. MUSKULOSKELETAL: Admits right shoulder pain with some swelling at the right scapular border. Denies trauma INTEGUMENTARY: Denies rash, denies eczema. NEUROLOGICAL: Denies recent memory loss, no recent seizure activity. PSYCHIATRIC: Denies anxiety, denies depression. HEMATOLOGIC/LYMPHATIC: Denies anemia, denies enlarged lymph node Past Medical History Past Medical History: Cancer, COPD Additional Past Medical History / Comment(s): last dose prednisone taper dose will be taken on 08-12-23, aspergillus fungal infection 2020-tx for two years . rt adrenal gland and lung CA at age 29 received both chemo and radiation, brain aneurysm History of Any Multi-Drug Resistant Organisms: None Reported Past Surgical History: Bladder Surgery, Hysterectomy, Tubal Ligation Additional Past Surgical History / Comment(s): R upper lobectomy, rt adrenal gland removed, brain aneurysm clamped years ago,bladder suspension Past Anesthesia/Blood Transfusion Reactions: No Reported Reaction Additional Past Anesthesia/Blood Transfusion Reaction / Comment(s): no problems w/ prior blood transfusion Smoking Status: Former smoker - Past Family History Mother Family Medical History: Cancer Additional Family Medical History / Comment(s): OVARIAN CANCER Sister(s) Additional Family Medical History / Comment(s): RECTAL CANCER Brother(s) Family Medical History: Cancer Additional Family Medical History / Comment(s): LUNG CANCER Medications and Allergies Home Medications Medication Instructions Recorded Confirmed Type Albuterol Sulfate [Ventolin HFA] 2 puff INHALATION RT-QID PRN 12/10/21 10/13/23 History Cholecalciferol [Vitamin D3 (125 25 mcg PO DAILY 12/10/21 10/13/23 History Mcg = 5000 Iu)] Ipratropium-Albuterol Nebulize 3 ml INHALATION RT-Q6H PRN 02/18/23 10/13/23 History [Duoneb 0.5 mg-3 mg/3 ml Soln] busPIRone HCL 5 mg PO TID PRN 02/18/23 10/13/23 History Citalopram Hydrobromide [CeleXA] 40 mg PO QAM 05/20/23 10/13/23 History Cyanocobalamin (Vitamin B-12) 1,000 mcg PO DAILY 05/20/23 10/13/23 History [Vitamin B-12] Fluticasone/Umeclidin/Vilanter 1 puff INHALATION QAM 05/20/23 10/13/23 History [Trelegy Ellipta 100-62.5-25] Allergies Allergy/AdvReac Type Severity Reaction Status Date / Time No Known Allergies Allergy Verified 10/13/23 15:48 Physical Exam Vitals: Vital Signs Temp Pulse Pulse Resp BP BP Pulse Ox 10/14/23 11:52 98 F 104 H 26 H 104/69 93 L 10/14/23 11:25 96 10/14/23 11:16 100 10/14/23 08:38 102 H 10/14/23 08:21 98 92 L 10/14/23 08:00 97.6 F 98 20 114/72 99 10/14/23 04:00 99.8 F H 100 26 H 94/60 95 10/14/23 00:00 98.2 F 99 20 103/63 96 10/13/23 20:57 99 F 107 H 22 127/74 99 10/13/23 20:05 99 10/13/23 20:04 101 H 19 130/71 97 10/13/23 19:55 102 H 10/13/23 19:20 99 20 97/63 92 L 10/13/23 18:00 107 H 20 112/69 94 L 10/13/23 17:00 107 H 20 116/69 95 10/13/23 16:50 108 H 18 10/13/23 16:40 104 H 18 10/13/23 16:00 105 H 20 111/66 95 10/13/23 15:00 105 H 20 117/61 96 10/13/23 14:30 105 H 18 117/61 97 10/13/23 13:36 103 H 18 10/13/23 13:26 96 18 Intake and Output 10/13/23 10/14/23 10/14/23 22:59 06:59 14:59 Output Total 600 Balance -600 Output: Urine 600 Other: Weight 63.503 kg GENERAL EXAM: Alert, 63-year-old white female, comfortable in no apparent distress. Voice is hoarse. The patient is currently on 2 L of O2 nasal cannula. HEAD: Normocephalic and atraumatic EYES: Normal reaction of pupils, equal size. NOSE: Clear with pink turbinates. THROAT: No erythema or exudates. NECK: No masses, no JVD. CHEST: No chest wall deformity. LUNGS: Equal air entry with scattered rhonchi and right-sided dullness. On 2 L/m nasal cannula. No conversational dyspnea or accessory muscle use.. There is bronchial breath on the right apical area CVS: S1 and S2 normal with no audible murmur, regular rhythm. No extra heart sounds ABDOMEN: No hepatosplenomegaly, active bowel sounds, no guarding or rigidity. SPINE: No scoliosis or deformity. Right lateral soft tissue swelling at the scapular level SKIN: No rashes CENTRAL NERVOUS SYSTEM: No focal deficits, tone is normal in all 4 extremities. EXTREMITIES: There is no peripheral edema, clubbing, or cyanosis. Peripheral pulses are intact. Results - Laboratory Findings CBC and BMP: 10/14/23 02:08 10/14/23 02:08 PT/INR, D-dimer PT 10.4 sec (10.0-12.5) 10/13/23 12:22 INR 0.9 (<1.2) 10/13/23 12:22 D-Dimer 1.45 mg/L FEU (<0.60) H 10/13/23 12:22 Abnormal lab findings: Abnormal Labs 10/13/23 10/13/23 10/13/23 12:22 12:22 12:22 WBC 19.3 H RBC Hgb Hct Neutrophils # Neutrophils # (Manual) 17.90 H Lymphocytes # Lymphocytes # (Manual) 0.19 L Metamyelocytes # (Man) 0.77 H D-Dimer 1.45 H Sodium 135 L Potassium 3.1 L BUN 18 H Creatinine Glucose 144 H Plasma Lactic Acid Jeromy Calcium Alkaline Phosphatase 158 H Total Protein Albumin 3.2 L Procalcitonin 10/13/23 10/13/23 10/13/23 12:22 17:18 20:31 WBC RBC Hgb Hct Neutrophils # Neutrophils # (Manual) Lymphocytes # Lymphocytes # (Manual) Metamyelocytes # (Man) D-Dimer Sodium Potassium BUN Creatinine Glucose Plasma Lactic Acid Jeromy 2.7 H* 4.2 H* 4.8 H* Calcium Alkaline Phosphatase Total Protein Albumin Procalcitonin 10/13/23 10/13/23 10/14/23 23:05 23:11 02:08 WBC RBC Hgb Hct Neutrophils # Neutrophils # (Manual) Lymphocytes # Lymphocytes # (Manual) Metamyelocytes # (Man) D-Dimer Sodium 134 L Potassium BUN Creatinine 0.39 L Glucose 203 H Plasma Lactic Acid Jeromy 2.8 H* Calcium 8.3 L Alkaline Phosphatase Total Protein 5.4 L Albumin 2.6 L Procalcitonin 13.40 H 10/14/23 02:08 WBC 20.0 H RBC 3.31 L Hgb 10.7 L Hct 32.9 L Neutrophils # 19.1 H Neutrophils # (Manual) Lymphocytes # 0.3 L Lymphocytes # (Manual) Metamyelocytes # (Man) D-Dimer Sodium Potassium BUN Creatinine Glucose Plasma Lactic Acid Jeromy Calcium Alkaline Phosphatase Total Protein Albumin Procalcitonin - Diagnostic Findings Chest x-ray: image reviewed CT scan - chest: image reviewed Assessment and Plan Plan: Right lung pneumonia. The patient has developed a area of consolidation of the right upper zones and at the same time the patient has leukocytosis, elevated pro-calcitonin level and she was initially septic condition at time of admission with some mild hypotension and lactic acidosis. Note that her blood pressure improved with fluid resuscitation lactic acid also improved. This is a new large right sided cavitating masslike consolidation, Chest CTA on arrival demonstrates posttreatment volume loss and surgical changes on the right, new extensive airspace disease and consolidation extending in the periphery of presumably the right middle lobe with areas of cavitation. Acute COPD exacerbation, secondary to above Leukocytosis, secondary to above Acute hypoxic respiratory failure secondary to above Sepsis with mild hypotension lactic acidosis, improved with fluids and antibiotics Lactic acidemia, improved Remote history of small cell lung cancer, status post chemoradiation and previous right upper lobectomy and right adrenalectomy Left adrenal gland opacity measuring 2.9 cm in size, concerning for malignancy History of aspergilloma, 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 Follow-up bronchoscopies and fungal cultures negative for Aspergillus 2. History of recurrent hemoptysis, inactive Mild normocytic, normochromic anemia Recent history of COVID-19 infection, not requiring hospitalization. 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 Former tobacco smoke Plan Will titrate oxygen flow to maintain saturation above 90%, currently on 2 L I will recheck Aspergillus antibodies although my suspicion for Aspergillus infection is low based on the fact that the patient 2 bronchoscopies in the past not feeling any fungal infection We'll do another bronchoscopy and collect a bronchial lavage from the right lung for microbial diagnosis Continue cefepime Continue vancomycin Check urine antigen for legionella The viral panel is negative The patient will need a biopsy of the left adrenal gland at the later stage once his condition is more stable We'll monitor pneumonia and obtain daily chest x-rays We'll continue to follow make further recommendations based on her progress.
[2023-10-14] MEDS ORDERED: IV FLUID CONTINUATION 1,000 ML IV ONE (12:30)
[2023-10-14] MEDS ORDERED: PROPOFOL 10 MG/ML 20 ML VIAL IV ONE (12:30)
--- NOTE | 2023-10-14 13:21 | P.PCN ---
Date of Procedure: 10/14/23 Preoperative Diagnosis: Right lung pneumonia Postoperative Diagnosis: Right upper lobectomy Normal right upper lobe stump Anatomic distortion involving the right middle lobe and right lower lobe secondary to previous surgery and radiation therapy Procedure(s) Performed: Flexible bronchoscopy, airway inspection, bronchioloalveolar lavage of the right middle lobe Anesthesia: MAC Surgeon: Kunal Billings Estimated Blood Loss (ml): 0 Pathology: other Condition: stable Disposition: floor Operative Findings: This procedure was done in the endoscopy suite. A consent was obtained preoperatively. A timeout was done. The preoperative diagnosis consistent with a right lung pneumonia After achieving adequate sedation, the flexible bronchoscope was inserted through the right nostril. The patient was in the 10 L nasal cannula. I was able to pass the bronchoscope through the right nostril and advanced into the posterior oropharynx and larynx. Upper airway structures were examined and there was no significant abnormalities noted. They epiglottis, arytenoids and the vocal cords were all within normal limits. A total of 2 mL of 1% lidocaine was applied to the vocal cord and following that the bronchoscope was advanced into the trachea. The trachea was somewhat tortuous. There was no cystocele secretions throughout the tracheal airway that were suctioned out. The bronchoscope was removed to the right. More respiratory secretions were encountered in the right mainstem bronchus. The right upper lobe stump was then inspected and was within normal limits. The bronchoscope was normal to the bronchus intermedius. There was significant anatomic distortion. The right middle lobe has moved laterally and the orifice of the right middle lobe was quite narrowed. I was able to visualize the 2 segments of the right middle lobe and there were all compromised because of anatomic distortion, previous surgery and radiation therapy. Mucus was identified in the right middle lobe bronchus. Less amount of rest or secretions were also found in the right lower lobe. Therapeutic airway suctioning was done. Following that, a bronchial lavage of the right middle lobe was done with a total of 60 mL of fluid was infused and 30 mL was aspirated without any major difficulties. Examination of the left side included left mainstem bronchus, left upper lobe bronchus and the left lower lobe bronchus and the various segments on the left and there were all within normal limits. There was some mucosal irritation and inflammatory changes identified. After that, a therapeutic airway suctioning was done. The rest or secretions were all suctioned out and the procedure was terminated. The bronchoscope was removed and the patient was tested to recovery in stable condition. The lavage from the right lung will be sent for microbial cultures and urinalysis. The patient On accommodation of cefepime and vancomycin. The oxygen saturation encountered throughout the procedure.
[2023-10-14] MEDS ORDERED: IPRATROPIUM-ALBUTEROL 3 ML NEB INHALATION PRN (16:16)
[2023-10-14] MEDS: busPIRone HCl 5 MG TAB PO PRN (17:13)
--- NOTE | 2023-10-15 00:11 | PN ---
PROGRESS NOTE CHIEF COMPLAINT: COPD, and pneumonia. HISTORY OF PRESENT ILLNESS: This lady is doing a lot better. She is feeling much better. Breathing is improved. REVIEW OF SYSTEMS: She is not experiencing chills, fever, as much shortness of breath, etc. She is coughing a fair amount. PHYSICAL EXAMINATION: VITAL SIGNS: Normal. CHEST: Fairly clear and breath sounds are diminished throughout. CARDIAC: Normal. ABDOMEN: Soft, nontender. IMPRESSION: 1. Exacerbation of chronic obstructive pulmonary disease. 2. Pneumonitis. 3. History of small cell carcinoma of the lung. PLAN: Continue current treatments which are effective. MMODL / IJN: [id number] /
[2023-10-15] MEDS: methylPREDNISolone SOD SUCCI 125 MG/2 ML VIAL IV SCH ×5 (00:22→23:43)
--- NOTE | 2023-10-15 01:56 | HP ---
HISTORY AND PHYSICAL CHIEF COMPLAINT: Difficulty breathing. HISTORY OF PRESENT ILLNESS: This 63-year-old female has been coughing for 2 weeks when she came in with increasing shortness of breath. In the emergency room, she was found to have right upper lobe pneumonitis where she has had a prior neoplasm and partial lobectomy. She also had an elevated D-dimer, but the CTA was negative. She was admitted with a diagnosis of exacerbation of COPD and pneumonitis. REVIEW OF SYSTEMS: She has had no neurologic problems, headaches, hemoptysis, chest pain, abdominal pain, nausea, vomiting, diarrhea, urinary complaints, etc. Past medical history, family history, and personal and social histories reveal that she is not allergic to any medication. She has had prior surgery in the right upper lobe and hysterectomy. MEDICATIONS: 1. Trelegy. 2. BuSpar. 3. Updrafts with DuoNeb. 4. Celexa. 5. Vitamin D. SOCIAL HISTORY: She no longer smokes. PHYSICAL EXAMINATION: VITAL SIGNS: Initial blood pressure was . Pulse was 94 and respirations were 35. GENERAL: She appeared to be very short of breath. Color and hydration were normal. HEENT: Head, ears, eyes, nose, mouth are normal. NECK: Veins are not distended. CHEST: Demonstrated decreased breath sounds throughout with some expiratory wheezing and scattered rales and rhonchi. CARDIAC: Revealed a sinus rhythm. ABDOMEN: Soft, nontender. EXTREMITIES: Normal. IMPRESSION: 1. Right upper lobe pneumonitis. 2. Previous history of right upper lobe neoplasm. 3. Chronic obstructive pulmonary disease. PLAN: 1. Bed rest. 2. IV fluids. 3. Updrafts. 4. Consult with pulmonology. MMODL / IJN: [id number] /
[2023-10-15] MEDS: PANTOPRAZOLE 40 MG TABLET PO SCH ×2 (05:01→16:56)
[2023-10-15] MEDS: VANCOMYCIN 1,250 MG in SODIUM CHLORIDE 0.9% 250 ML IVPB SCH ×3 (05:01→23:43)
[2023-10-15] MEDS: HYDROcodone/APAP 7.5-325MG 1 EACH TAB PO PRN ×3 (05:01→23:42)
[2023-10-15 06:13] LABS: Appearance,BF Blood Tinged (Clear); RBC, Body Fluid 5819 /UL (0-2000)
[2023-10-15] MEDS: SODIUM CHLORIDE 0.9% 1,000 ML IV SCH ×2 (06:36→20:38)
[2023-10-15 08:17] LABS: African American GFR (CKD) >90 (>60 ml/min/1.73 sqM); Non-African American GFR(CKD) >90 (>60 ml/min/1.73 sqM)
[2023-10-15] MEDS: IPRATROPIUM-ALBUTEROL 3 ML NEB INHALATION SCH ×4 (09:03→20:43)
[2023-10-15] MEDS: SYMBICORT 160-4.5 MCG INHALER INHALATION SCH ×2 (09:03→20:43)
[2023-10-15] MEDS: CEFEPIME 2 GM in SODIUM CHLORIDE 0.9% 100 ML IVPB SCH ×2 (10:09→20:38)
[2023-10-15] MEDS: POTASSIUM CHLORIDE ER 20 MEQ TAB.ER PO SCH ×3 (10:10→20:39)
[2023-10-15] MEDS: CITALOPRAM HYDROBROMIDE 20 MG TAB PO SCH (10:10)
[2023-10-15 11:35] LABS: Nucleated Cells, Body Fluid 2006 /UL
--- NOTE | 2023-10-15 12:32 | XR ---
EXAMINATION TYPE: XR chest 1V DATE OF EXAM: 10/15/2023 COMPARISON: 10/15/2023 HISTORY: follow up pneumonia TECHNIQUE: Single frontal view of the chest is obtained. FINDINGS: The heart is enlarged. There is prominence along the right heart border compatible with a prominent pericardial fat pad diaphragmatic hernia noted by previous CT scan.. Right apical pleural t hickening with a new area of vague consolidation in the periphery of the right midlung. Cavitation boland spected. Underlying COPD with no sizable pleural effusion or pneumothorax. Degenerative changes of th e spine. There is a 1.5 cm subpleural nodule right lower lobe. IMPRESSION: 1. There is a persisting consolidation with suspected cavitation in the right upper lobe which could be related to cavitary pneumonia. Neoplastic process or bronchopleural fistula not excluded. 2. There is a 1.5 cm subpleural nodule right lower lobe.
--- NOTE | 2023-10-15 14:53 | P.PN ---
Subjective Progress Note Date: 10/15/23 63-year-old female patient was being seen in consultation for worsening shortness of breath. The patient's symptoms started approximately 8-10 days ago. She was started with increased dyspnea, cough, congestion and she was also experiencing pain in her right posterior upper chest area. She ultimately decided to come in to the hospital where she was diagnosed having a right upper lobe pneumonia. The patient is very well-known to me. The patient has a remote history of small cell lung cancer and she has undergone a previous right upper lobe resection followed by chemotherapy and radiation therapy. 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 Her emergency dispatcher was out of town, Dr. Moncho Dawson. . Note that, the patient presented to us back in 2021 with hemoptysis. At that time, a bronchoscopy was done and the cultures were positive for Bordetella bronchiseptica. Fungal cultures negative for Aspergillus. At that time, the patient completed a course of Levaquin. A PET scan done May, demonstrated right upper lobe consolidation changes with intermediate FDG uptake at the prior surgical bed. Lesion was cavitating and suspicious for inflammatory/infectious disease process. There was also a stable size FDG avid left adrenal nodule. A follow-up bronchoscopy was done on 08/13/2023 there was significant narrowing of the right middle lobe bronchus due to anatomic distortion and volume loss and pulling effect from the previous right upper lobectomy. A transbronchial needle aspirate of the cavitating lesion was again negative for any cytologically malignant cells. C ultures were positive for Staphylococcus aureus, thought to be contaminant. Fungal cultures again negative for fungal infection or Aspergillus. For now, there is a concern that the patient has a extensive right upper lobe pneumonia. A CAT scan of the chest was repeated in the emergency department shows volume loss in the right lung which is quite expected. At the same time, there was extensive consolidation in the upper part of the lungs with some gas formation suggestive of a cavitating/necrotizing pneumonia. At the same time, there was enlargement of a left adrenal opacity which was currently measuring around 2.9 cm in size compared to 2.4 cm in size on previous evaluation. Note that a previous PET scan also showed some metabolic activity in the adrenal gland. As such, the patient was hospitalized. Her lochia still was elevated at 4.8 and dropped down to 1.2. The white cell count is elevated and the patient has a white cell count of 20 with a hemoglobin 10.7, her pro-calcitonin level is at 13.4. BUN is at 12 with a creatinine of 0.38 and a sodium level is at 139. The patient is currently on 2 L of oxygen by nasal cannula. She is hemodynamically stable. Affect was slightly hypotensive at time of admission and this improved with fluids. She is scheduled to underwent bronchoscopy and the bronchial lavage of the right lung to establish microbial diagnosis. Meanwhile, the patient was started on a combination of cefepime and vancomycin. Noted the patient was also infected with Covid 19 approximately a month ago and this was treated on outpatient basis without any hospitalization. On 10/15/2023, the patient is being seen for a follow-up. The patient is feeli ng better. She is actively bronchospastic and wheezy and she is on on a combination of bronchodilators and steroids.. Bronchoscopy and the bronchial lavage of the right lung was done and there is also still pending for now. Meanwhile, the patient is on a combination of cefepime and vancomycin. She remains on 2 L of oxygen by nasal cannula with pulse ox of 96%. She is afebrile at this point and she is also hemodynamically stable. Noted the bronchoscopy was done without any complications, awaiting the results of bronchioloalveolar lavage. We will also proceed with daily chest x-rays. Objective - Vital Signs Vital signs: Vital Signs Temp 97.5 F L 10/15/23 12:00 Pulse 88 10/15/23 13:10 Resp 22 10/15/23 12:00 BP 139/75 10/15/23 12:00 Pulse Ox 96 10/15/23 12:00 FiO2 Intake & Output 10/14/23 10/15/23 10/15/23 18:59 06:59 18:59 Intake Total 300 243 Output Total 2 Balance 300 -2 243 Intake: IV 300 Oral 243 Output: Urine 2 - Exam GENERAL EXAM: Alert, 63-year-old white female, comfortable in no apparent distress. Voice is hoarse. The patient is currently on 2 L of O2 nasal cannula. HEAD: Normocephalic and atraumatic EYES: Normal reaction of pupils, equal size. NOSE: Clear with pink turbinates. THROAT: No erythema or exudates. NECK: No masses, no JVD. CHEST: No chest wall deformity. LUNGS: Equal air entry with scattered rhonchi and right-sided dullness. The patient has diminished breath on the lung with diffuse expiratory wheezes. CVS: S1 and S2 normal with no audible murmur, regular rhythm. No extra heart sounds ABDOMEN: No hepatosplenomegaly, active bowel sounds, no guarding or rigidity. SPINE: No scoliosis or deformity. Right lateral soft tissue swelling at the scapular level SKIN: No rashes CENTRAL NERVOUS SYSTEM: No focal deficits, tone is normal in all 4 extremities. EXTREMITIES: There is no peripheral edema, clubbing, or cyanosis. Peripheral pulses are intact. - Labs CBC & Chem 7: 10/14/23 02:08 10/15/23 07:28 Labs: Abnormal Lab Results - Last 24 Hours (Table) 10/14/23 10/15/23 Range/Units 12:45 07:28 Creatinine 0.43 L (0.52-1.04) mg/dL Fluid Appearance Blood Tinged A (Clear) Fluid RBC 5819 H (0-2000) /uL Microbiology - Last 24 Hours (Table) 10/14/23 12:45 Gram Stain - Preliminary Bronchoalviolar Lavage - Right 10/13/23 12:22 Blood Culture - Preliminary Blood 10/13/23 12:22 Blood Culture - Preliminary Blood Assessment and Plan Plan: Right lung pneumonia. The patient has developed a area of consolidation of the right upper zones and at the same time the patient has leukocytosis, elevated pro-calcitonin level and she was initially septic condition at time of admission with some mild hypotension and lactic acidosis. Note that her blood pressure improved with fluid resuscitation lactic acid also improved. This is a new large right sided cavitating masslike consolidation, Chest CTA on arrival demonstrates posttreatment volume loss and surgical changes on the right, new extensive airspace disease and consolidation extending in the periphery of presumably the right middle lobe with areas of cavitation. Bronchoscopy was done on 10/15/2023 and the bronchial lavage is still pending Acute COPD exacerbation, secondary to above, actively bronchus spastic and wheezy Leukocytosis, secondary to above, secured pneumonia Acute hypoxic respiratory failure secondary to above, currently on 2 L Sepsis with mild hypotension lactic acidosis, improved with fluids and antibi otics Lactic acidemia, improved Remote history of small cell lung cancer, status post chemoradiation and previous right upper lobectomy and right adrenalectomy Left adrenal gland opacity measuring 2.9 cm in size, concerning for malignancy History of aspergilloma, 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 Follow-up bronchoscopies and fungal cultures negative for Aspergillus 2. History of recurrent hemoptysis, inactive Mild normocytic, normochromic anemia Recent history of COVID-19 infection, not requiring hospitalization. 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
[2023-10-15] MEDS ORDERED: VANCOMYCIN TROUGH DUE 1 EACH MISC MISCELLANE ONE (16:00)
[2023-10-15] MEDS: busPIRone HCl 5 MG TAB PO PRN (20:39)
--- NOTE | 2023-10-15 22:31 | PN ---
PROGRESS NOTE CHIEF COMPLAINT: Pneumonitis, COPD, and history of carcinoma of the lung. HISTORY OF PRESENT ILLNESS: This lady is a little better, but not much. She is still very dyspneic with movement. She has had no chills or fever. PHYSICAL EXAMINATION: CHEST: Reveals poor breath sounds throughout with wheezing, rales, and a prolonged expiratory phase. CARDIAC: Normal. IMPRESSION: 1. Exacerbation of COPD. 2. Pneumonitis. 3. History of carcinoma of the lung. PLAN: Continue with current program. She is improving slowly. MMODL / IJN: [id number] /
[2023-10-16] MEDS: ALPRAZolam 0.25 MG TAB PO PRN ×2 (01:02→19:41)
[2023-10-16] MEDS: PANTOPRAZOLE 40 MG TABLET PO SCH ×2 (06:43→17:15)
[2023-10-16] MEDS: methylPREDNISolone SOD SUCCI 125 MG/2 ML VIAL IV SCH ×3 (06:43→17:15)
[2023-10-16 08:21] LABS: Basophils % (A) 0 %; Eosinophils % (A) 0 %; HCT 37.8 % (34.0-46.0); HGB 12.1 gm/dL (11.4-16.0); Hypochromasia Slight; Lymphocytes # (A) 0.4 k/uL (1.0-4.8); Lymphocytes % (A) 4 %; MCHC 32.1 g/dL (31.0-37.0); Macrocytosis Slight; Mean Platelet Volume 8.1; Monocytes # (A) 0.2 k/uL (0-1.0); Monocytes % (A) 3 %; Neutrophils # (A) 8.6 k/uL (1.3-7.7); Neutrophils % (A) 92 %; Platelet Count 369 k/uL (150-450); RBC 3.78 m/uL (3.80-5.40); RDW 14.3 % (11.5-15.5); WBC 9.3 k/uL (3.8-10.6)
--- NOTE | 2023-10-16 08:22 | XR ---
EXAMINATION TYPE: XR chest 1V DATE OF EXAM: 10/16/2023 COMPARISON: 10/15/2023 HISTORY: Cough TECHNIQUE: Single frontal view of the chest is obtained. FINDINGS: The heart is enlarged. There is prominence along the right heart border compatible with a prominent pericardial fat pad diaphragmatic hernia noted by previous CT scan.. Right apical pleural t hickening with a new area of vague consolidation in the periphery of the right midlung. Cavitation boland spected. Underlying COPD with no sizable pleural effusion or pneumothorax. Degenerative changes of th e spine. There is a 1.5 cm subpleural nodule right lower lobe. Bibasilar consolidation and small effusion. Surgical clips in the abdomen. IMPRESSION: 1. Stable consolidation with suspected cavitation in the right upper lobe which could be related to c avitary pneumonia. 2. There is a 1.5 cm subpleural nodule right lower lobe. 3. Bibasilar consolidation and small pleural effusion.
[2023-10-16] MEDS: SYMBICORT 160-4.5 MCG INHALER INHALATION SCH ×2 (08:38→20:39)
[2023-10-16] MEDS: IPRATROPIUM-ALBUTEROL 3 ML NEB INHALATION SCH ×4 (08:38→20:39)
[2023-10-16 08:45] LABS: ALT 38 U/L (4-34); AST 31 U/L (14-36); African American GFR (CKD) >90 (>60 ml/min/1.73 sqM); Albumin 2.8 g/dL (3.5-5.0); Alkaline Phosphatase 131 U/L (38-126); Anion Gap 3 mmol/L; Blood Urea Nitrogen 14 mg/dL (7-17); Calcium 8.4 mg/dL (8.4-10.2); Carbon Dioxide 25 mmol/L (22-30); Chloride 105 mmol/L (98-107); Glucose 244 mg/dL (74-99); Non-African American GFR(CKD) >90 (>60 ml/min/1.73 sqM); Potassium 4.7 mmol/L (3.5-5.1); Sodium 133 mmol/L (137-145); Total Bilirubin 0.4 mg/dL (0.2-1.3); Total Protein 5.9 g/dL (6.3-8.2)
[2023-10-16] MEDS: POTASSIUM CHLORIDE ER 20 MEQ TAB.ER PO SCH ×3 (08:54→23:19)
[2023-10-16] MEDS: CITALOPRAM HYDROBROMIDE 20 MG TAB PO SCH (08:54)
[2023-10-16] MEDS: CEFEPIME 2 GM in SODIUM CHLORIDE 0.9% 100 ML IVPB SCH ×2 (08:54→19:40)
[2023-10-16] MEDS: HYDROcodone/APAP 7.5-325MG 1 EACH TAB PO PRN ×2 (12:15→19:41)
[2023-10-16] MEDS: SODIUM CHLORIDE 0.9% 1,000 ML IV SCH ×2 (12:19→19:44)
[2023-10-16] MEDS: VANCOMYCIN 1,250 MG in SODIUM CHLORIDE 0.9% 250 ML IVPB SCH (13:28)
--- NOTE | 2023-10-16 14:35 | P.PN ---
Subjective Progress Note Date: 10/16/23 63-year-old female patient was being seen in consultation for worsening shortness of breath. The patient's symptoms started approximately 8-10 days ago. She was started with increased dyspnea, cough, congestion and she was also experiencing pain in her right posterior upper chest area. She ultimately decided to come in to the hospital where she was diagnosed having a right upper lobe pneumonia. The patient is very well-known to me. The patient has a remote history of small cell lung cancer and she has undergone a previous right upper lobe resection followed by chemotherapy and radiation therapy. 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 Her bottle packer was out of town, Dr. Moncho Dawson. . Note that, the patient presented to us back in 2021 with hemoptysis. At that time, a bronchoscopy was done and the cultures were positive for Bordetella bronchiseptica. Fungal cultures negative for Aspergillus. At that time, the patient completed a course of Levaquin. A PET scan done May, demonstrated right upper lobe consolidation changes with intermediate FDG uptake at the prior surgical bed. Lesion was cavitating and suspicious for inflammatory/infectious disease process. There was also a stable size FDG avid left adrenal nodule. A follow-up bronchoscopy was done on 08/13/2023 there was significant narrowing of the right middle lobe bronchus due to anatomic distortion and volume loss and pulling effect from the previous right upper lobectomy. A transbronchial needle aspirate of the cavitating lesion was again negative for any cytologically malignant cells. C ultures were positive for Staphylococcus aureus, thought to be contaminant. Fungal cultures again negative for fungal infection or Aspergillus. For now, there is a concern that the patient has a extensive right upper lobe pneumonia. A CAT scan of the chest was repeated in the emergency department shows volume loss in the right lung which is quite expected. At the same time, there was extensive consolidation in the upper part of the lungs with some gas formation suggestive of a cavitating/necrotizing pneumonia. At the same time, there was enlargement of a left adrenal opacity which was currently measuring around 2.9 cm in size compared to 2.4 cm in size on previous evaluation. Note that a previous PET scan also showed some metabolic activity in the adrenal gland. As such, the patient was hospitalized. Her lochia still was elevated at 4.8 and dropped down to 1.2. The white cell count is elevated and the patient has a white cell count of 20 with a hemoglobin 10.7, her pro-calcitonin level is at 13.4. BUN is at 12 with a creatinine of 0.38 and a sodium level is at 139. The patient is currently on 2 L of oxygen by nasal cannula. She is hemodynamically stable. Affect was slightly hypotensive at time of admission and this improved with fluids. She is scheduled to underwent bronchoscopy and the bronchial lavage of the right lung to establish microbial diagnosis. Meanwhile, the patient was started on a combination of cefepime and vancomycin. Noted the patient was also infected with Covid 19 approximately a month ago and this was treated on outpatient basis without any hospitalization. On 10/15/2023, the patient is being seen for a follow-up. The patient is feeli ng better. She is actively bronchospastic and wheezy and she is on on a combination of bronchodilators and steroids.. Bronchoscopy and the bronchial lavage of the right lung was done and there is also still pending for now. Meanwhile, the patient is on a combination of cefepime and vancomycin. She remains on 2 L of oxygen by nasal cannula with pulse ox of 96%. She is afebrile at this point and she is also hemodynamically stable. Noted the bronchoscopy was done without any complications, awaiting the results of bronchioloalveolar lavage. We will also proceed with daily chest x-rays. On 10/16/2023, I'm seeing the patient for a follow-up. Clinically she is improving slowly. The white cell count is dropped down to 9. The pro- calcitonin level is also improving and the pro-calcitonin level is down to 9.7. Meanwhile, the results of the bronchial lavage are still negative and the pat ient is covered with the same antibiotics which include a combination of cefepime and vancomycin. The white cell count is down to 9.3 and the hemoglobin is at 12.1. The patient is currently on bronchodilators and steroids. She is less SPASTIC and wheezing compared to yesterday. Sodium level is at 133 and a potassium level is at 4.7. The BUN is at 40 with a creatinine of 0.5. Pulse ox is 93% on room air oxygen. Objective - Vital Signs Vital signs: Vital Signs Temp 97.6 F 10/16/23 08:47 Pulse 100 01/19/24 08:51 Resp 19 10/16/23 08:47 BP 139/81 10/16/23 08:47 Pulse Ox 94 L 10/16/23 08:47 FiO2 Intake & Output 10/15/23 10/16/23 10/16/23 18:59 06:59 18:59 Intake Total 1023 890 240 Output Total 5 900 Balance 1018 -10 240 Intake: Intake, IV Titration 350 Amount Cefepime 2 gm In Sodium 100 Chloride 0.9% 100 ml @ 25 mls/hr IVPB Q12HR [facility] Rx #:[id number] Vancomycin 1,250 mg In 250 Sodium Chloride 0.9% 250 ml @ 125 mls/hr IVPB Q8H [facility] Rx#:[id number] Oral 1023 540 240 Output: Urine 5 900 Other: # Voids 2 - Exam GENERAL EXAM: Alert, 63-year-old white female, comfortable in no apparent distress. Voice is hoarse. The patient is currently on room air oxygen HEAD: Normocephalic and atraumatic EYES: Normal reaction of pupils, equal size. NOSE: Clear with pink turbinates. THROAT: No erythema or exudates. NECK: No masses, no JVD. CHEST: No chest wall deformity. LUNGS: Equal air entry with scattered rhonchi and right-sided dullness. The patient has diminished breath on the lung with diffuse expiratory wheezes. CVS: S1 and S2 normal with no audible murmur, regular rhythm. No extra heart sounds ABDOMEN: No hepatosplenomegaly, active bowel sounds, no guarding or rigidity. SPINE: No scoliosis or deformity. Right lateral soft tissue swelling at the scapular level SKIN: No rashes CENTRAL NERVOUS SYSTEM: No focal deficits, tone is normal in all 4 extremities. EXTREMITIES: There is no peripheral edema, clubbing, or cyanosis. Peripheral pulses are intact. - Labs CBC & Chem 7: 10/16/23 08:05 10/16/23 08:05 Labs: Abnormal Lab Results - Last 24 Hours (Table) 10/14/23 10/15/23 10/16/23 Range/Units 12:45 15:22 08:05 RBC (3.80-5.40) m/uL Neutrophils # (1.3-7.7) k/uL Lymphocytes # (1.0-4.8) k/uL Sodium 133 L (137-145) mmol/L Creatinine 0.51 L (0.52-1.04) mg/dL Glucose 244 H (74-99) mg/dL ALT 38 H (4-34) U/L Alkaline Phosphatase 131 H (38-126) U/L Total Protein 5.9 L (6.3-8.2) g/dL Albumin 2.8 L (3.5-5.0) g/dL Procalcitonin 9.78 H (0.02-0.09) ng/mL Fluid RBC 5819 H (0-2000) /uL 10/16/23 Range/Units 08:05 RBC 3.78 L (3.80-5.40) m/uL Neutrophils # 8.6 H (1.3-7.7) k/uL Lymphocytes # 0.4 L (1.0-4.8) k/uL Sodium (137-145) mmol/L Creatinine (0.52-1.04) mg/dL Glucose (74-99) mg/dL ALT (4-34) U/L Alkaline Phosphatase (38-126) U/L Total Protein (6.3-8.2) g/dL Albumin (3.5-5.0) g/dL Procalcitonin (0.02-0.09) ng/mL Fluid RBC (0-2000) /uL Microbiology - Last 24 Hours (Table) 10/14/23 12:45 Acid Fast Bacilli Smear - Preliminary Bronchoalviolar Lavage - Right 10/13/23 12:22 Blood Culture - Preliminary Blood 10/13/23 12:22 Blood Culture - Preliminary Blood 10/14/23 12:45 Gram Stain - Preliminary Bronchoalviolar Lavage - Right Assessment and Plan Plan: Right lung pneumonia. The patient has developed a area of consolidation of the right upper zones and at the same time the patient has leukocytosis, elevated pro-calcitonin level and she was initially septic condition at time of admission with some mild hypotension and lactic acidosis. Note that her blood pressure improved with fluid resuscitation lactic acid also improved. This is a new large right sided cavitating masslike consolidation, Chest CTA on arrival demonstrates posttreatment volume loss and surgical changes on the right, new extensive airspace disease and consolidation extending in the periphery of presumably the right middle lobe with areas of cavitation. Bronchoscopy was done on 10/15/2023 and the bronchial lavage is still pending clinically the patient is improving. The pro-calcitonin level is improving. The white cell count is also improving. 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 Follow-up bronchoscopies and fungal cultures negative for Aspergillus 2. History of recurrent hemoptysis, inactive Mild normocytic, normochromic anemia Recent history of COVID-19 infection, not requiring hospitalization. 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 Former tobacco smoke Plan Will titrate oxygen flow to maintain saturation above 90%, currently on room air Continue cefepime Continue vancomycin Check urine antigen for legionella was negative The viral panel is negative\ This is most likely a bacterial infection as the patient has also elevated pro- calcitonin level and the level is also improving The patient will need a biopsy of the left adrenal gland at the later stage once his condition is more stable We'll monitor pneumonia and obtain daily chest x-rays, chest x-ray from today shows a stable consolidation in the right lung along with an area of cavitary pneumonia We'll continue to follow make further recommendations based on her progress.
[2023-10-16] MEDS: busPIRone HCl 5 MG TAB PO PRN (19:41)
[2023-10-17] MEDS: methylPREDNISolone SOD SUCCI 125 MG/2 ML VIAL IV SCH ×4 (00:09→17:10)
[2023-10-17] MEDS: VANCOMYCIN 1,250 MG in SODIUM CHLORIDE 0.9% 250 ML IVPB SCH ×3 (00:09→15:00)
[2023-10-17] MEDS: HYDROcodone/APAP 7.5-325MG 1 EACH TAB PO PRN ×4 (02:29→20:52)
[2023-10-17] MEDS: busPIRone HCl 5 MG TAB PO PRN ×2 (04:19→19:47)
[2023-10-17] MEDS: PANTOPRAZOLE 40 MG TABLET PO SCH ×2 (06:45→17:10)
[2023-10-17] MEDS: CITALOPRAM HYDROBROMIDE 20 MG TAB PO SCH (08:41)
[2023-10-17] MEDS: CEFEPIME 2 GM in SODIUM CHLORIDE 0.9% 100 ML IVPB SCH ×2 (08:42→19:47)
[2023-10-17] MEDS: POTASSIUM CHLORIDE ER 20 MEQ TAB.ER PO SCH ×3 (08:42→20:52)
[2023-10-17] MEDS: IPRATROPIUM-ALBUTEROL 3 ML NEB INHALATION SCH ×4 (08:52→20:30)
[2023-10-17] MEDS: SYMBICORT 160-4.5 MCG INHALER INHALATION SCH ×2 (08:53→20:30)
[2023-10-17 09:26] LABS: African American GFR (CKD) >90 (>60 ml/min/1.73 sqM); Non-African American GFR(CKD) >90 (>60 ml/min/1.73 sqM)
[2023-10-17] MEDS ORDERED: FUROSEMIDE 10 MG/ML 2 ML VIAL IV ONE (09:42)
--- NOTE | 2023-10-17 12:28 | P.PN ---
Subjective Progress Note Date: 10/17/23 63-year-old female patient was being seen in consultation for worsening shortness of breath. The patient's symptoms started approximately 8-10 days ago. She was started with increased dyspnea, cough, congestion and she was also experiencing pain in her right posterior upper chest area. She ultimately decided to come in to the hospital where she was diagnosed having a right upper lobe pneumonia. The patient is very well-known to me. The patient has a remote history of small cell lung cancer and she has undergone a previous right upper lobe resection followed by chemotherapy and radiation therapy. 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 Moncho Dawson. . Note that, the patient presented to us back in 2021 with hemoptysis. At that time, a bronchoscopy was done and the cultures were positive for Bordetella bronchiseptica. Fungal cultures negative for Aspergillus. At that time, the patient completed a course of Levaquin. A PET scan done May, demonstrated right upper lobe consolidation changes with intermediate FDG uptake at the prior surgical bed. Lesion was cavitating and suspicious for inflammatory/infectious disease process. There was also a stable size FDG avid left adrenal nodule. A follow-up bronchoscopy was done on 08/13/2023 there was significant narrowing of the right middle lobe bronchus due to anatomic distortion and volume loss and pulling effect from the previous right upper lobectomy. A transbronchial needle aspirate of the cavitating lesion was again negative for any cytologically malignant cells. C ultures were positive for Staphylococcus aureus, thought to be contaminant. Fungal cultures again negative for fungal infection or Aspergillus. For now, there is a concern that the patient has a extensive right upper lobe pneumonia. A CAT scan of the chest was repeated in the emergency department shows volume loss in the right lung which is quite expected. At the same time, there was extensive consolidation in the upper part of the lungs with some gas formation suggestive of a cavitating/necrotizing pneumonia. At the same time, there was enlargement of a left adrenal opacity which was currently measuring around 2.9 cm in size compared to 2.4 cm in size on previous evaluation. Note that a previous PET scan also showed some metabolic activity in the adrenal gland. As such, the patient was hospitalized. Her lochia still was elevated at 4.8 and dropped down to 1.2. The white cell count is elevated and the patient has a white cell count of 20 with a hemoglobin 10.7, her pro-calcitonin level is at 13.4. BUN is at 12 with a creatinine of 0.38 and a sodium level is at 139. The patient is currently on 2 L of oxygen by nasal cannula. She is hemodynamically stable. Affect was slightly hypotensive at time of admission and this improved with fluids. She is scheduled to underwent bronchoscopy and the bronchial lavage of the right lung to establish microbial diagnosis. Meanwhile, the patient was started on a combination of cefepime and vancomycin. Noted the patient was also infected with Covid 19 approximately a month ago and this was treated on outpatient basis without any hospitalization. On 10/15/2023, the patient is being seen for a follow-up. The patient is feeli ng better. She is actively bronchospastic and wheezy and she is on on a combination of bronchodilators and steroids.. Bronchoscopy and the bronchial lavage of the right lung was done and there is also still pending for now. Meanwhile, the patient is on a combination of cefepime and vancomycin. She remains on 2 L of oxygen by nasal cannula with pulse ox of 96%. She is afebrile at this point and she is also hemodynamically stable. Noted the bronchoscopy was done without any complications, awaiting the results of bronchioloalveolar lavage. We will also proceed with daily chest x-rays. On 10/16/2023, I'm seeing the patient for a follow-up. Clinically she is improving slowly. The white cell count is dropped down to 9. The pro- calcitonin level is also improving and the pro-calcitonin level is down to 9.7. Meanwhile, the results of the bronchial lavage are still negative and the pat ient is covered with the same antibiotics which include a combination of cefepime and vancomycin. The white cell count is down to 9.3 and the hemoglobin is at 12.1. The patient is currently on bronchodilators and steroids. She is less SPASTIC and wheezing compared to yesterday. Sodium level is at 133 and a potassium level is at 4.7. The BUN is at 40 with a creatinine of 0.5. Pulse ox is 93% on room air oxygen. 10/17/2023, the patient is improving. Less short of breath on today's evaluati on. Remains on cefepime and vancomycin. The bronchial lavage showing strep group A and presumed staph aureus. As such, the patient be kept on the same antibiotic as April the patient is clinically improving. She is currently on room air oxygen. Cough and congestion and wheezing is improved considerably and the pro-calcitonin level is also declining. No new complaints otherwise for today. Objective - Vital Signs Vital signs: Vital Signs Temp 98.1 F 10/17/23 08:34 Pulse 92 10/17/23 09:06 Resp 18 10/17/23 08:34 BP 133/79 10/17/23 08:34 Pulse Ox 94 L 10/17/23 08:54 FiO2 21 10/17/23 08:54 Intake & Output 10/16/23 10/17/23 10/17/23 18:59 06:59 18:59 Intake Total 598 120 Balance 598 120 Intake: Oral 598 120 Other: Voiding Method Toilet # Voids 2 - Exam GENERAL EXAM: Alert, 63-year-old white female, comfortable in no apparent distress. Voice is hoarse. The patient is currently on room air oxygen HEAD: Normocephalic and atraumatic EYES: Normal reaction of pupils, equal size. NOSE: Clear with pink turbinates. THROAT: No erythema or exudates. NECK: No masses, no JVD. CHEST: No chest wall deformity. LUNGS: Equal air entry with scattered rhonchi and right-sided dullness. The patient has diminished breath on the lung with diffuse expiratory wheezes. CVS: S1 and S2 normal with no audible murmur, regular rhythm. No extra heart sounds ABDOMEN: No hepatosplenomegaly, active bowel sounds, no guarding or rigidity. SPINE: No scoliosis or deformity. Right lateral soft tissue swelling at the scapular level SKIN: No rashes CENTRAL NERVOUS SYSTEM: No focal deficits, tone is normal in all 4 extremities. EXTREMITIES: There is no peripheral edema, clubbing, or cyanosis. Peripheral pulses are intact. - Labs CBC & Chem 7: 10/16/23 08:05 10/17/23 08:25 Labs: Microbiology - Last 24 Hours (Table) 10/13/23 12:22 Blood Culture - Preliminary Blood 10/13/23 12:22 Blood Culture - Preliminary Blood 10/14/23 12:45 Gram Stain - Preliminary Bronchoalviolar Lavage - Right Bronchial Washings Culture - Preliminary Presumptive Staph aureus Strep A Assessment and Plan Plan: Right lung pneumonia. The patient has developed a area of consolidation of the right upper zones and at the same time the patient has leukocytosis, elevated pro-calcitonin level and she was initially septic condition at time of admission with some mild hypotension and lactic acidosis. Note that her blood pressure improved with fluid resuscitation lactic acid also improved. This is a new large right sided cavitating masslike consolidation, Chest CTA on arrival demonstrates posttreatment volume loss and surgical changes on the right, new extensive airspace disease and consolidation extending in the periphery of presumably the right middle lobe with areas of cavitation. Bronchoscopy was done on 10/15/2023 and the BAL is showing a combination of staph aureus and strep group A. The patient will be kept on the same antibiotics. Clinically improving Acute COPD exacerbation, secondary to above, actively bronchus spastic and wheezy, improved compared to yesterday Leukocytosis, secondary to above, improving Acute hypoxic respiratory failure secondary to above, currently on room air oxygen Sepsis with mild hypotension lactic acidosis, improved with fluids and antibiotics Lactic acidemia, improved Remote history of small cell lung cancer, status post chemoradiation and previous right upper lobectomy and right adrenalectomy Left adrenal gland opacity measuring 2.9 cm in size, concerning for malignancy History of aspergilloma, 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 Follow-up bron choscopies and fungal cultures negative for Aspergillus 2. History of recurrent hemoptysis, inactive Mild normocytic, normochromic anemia Recent history of COVID-19 infection, not requiring hospitalization. 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 Former tobacco smoke Plan Awaiting the final results of the cultures from the BAL Will titrate oxygen flow to maintain saturation above 90%, currently on room air Continue cefepime Continue vancomycin Check urine antigen for legionella was negative The viral panel is negative\ This is most likely a bacterial infection as the patient has also elevated pro- calcitonin level and the level is also improving The patient will need a biopsy of the left adrenal gland at the later stage once his condition is more stable We'll monitor pneumonia and obtain daily chest x-rays, chest x-ray from today shows a stable consolidation in the right lung along with an area of cavitary pneumonia We'll continue to follow make further recommendations based on her progress.
[2023-10-17] MEDS: SODIUM CHLORIDE 0.9% 1,000 ML IV SCH (14:36)
[2023-10-17] MEDS: guaiFENesin 600 MG TABLET.ER PO SCH (19:47)
[2023-10-18] MEDS: methylPREDNISolone SOD SUCCI 125 MG/2 ML VIAL IV SCH ×5 (00:28→23:27)
[2023-10-18] MEDS: VANCOMYCIN 1,250 MG in SODIUM CHLORIDE 0.9% 250 ML IVPB SCH ×2 (00:28→06:29)
[2023-10-18] MEDS: SODIUM CHLORIDE 0.9% 1,000 ML IV SCH ×2 (01:48→17:58)
[2023-10-18] MEDS: busPIRone HCl 5 MG TAB PO PRN (04:23)
[2023-10-18] MEDS: PANTOPRAZOLE 40 MG TABLET PO SCH ×2 (06:29→17:12)
[2023-10-18] MEDS: HYDROcodone/APAP 7.5-325MG 1 EACH TAB PO PRN ×2 (06:33→18:32)
[2023-10-18] MEDS: CEFEPIME 2 GM in SODIUM CHLORIDE 0.9% 100 ML IVPB SCH ×3 (08:36→20:19)
[2023-10-18] MEDS: POTASSIUM CHLORIDE ER 20 MEQ TAB.ER PO SCH ×3 (08:36→20:20)
[2023-10-18] MEDS: CITALOPRAM HYDROBROMIDE 20 MG TAB PO SCH (08:36)
[2023-10-18] MEDS: guaiFENesin 600 MG TABLET.ER PO SCH ×2 (08:36→20:20)
[2023-10-18] MEDS: IPRATROPIUM-ALBUTEROL 3 ML NEB INHALATION SCH ×4 (08:51→21:20)
[2023-10-18] MEDS: SYMBICORT 160-4.5 MCG INHALER INHALATION SCH ×2 (08:51→21:20)
[2023-10-18 10:18] LABS: African American GFR (CKD) >90 (>60 ml/min/1.73 sqM); Non-African American GFR(CKD) >90 (>60 ml/min/1.73 sqM)
[2023-10-18] MEDS ORDERED: VANCOMYCIN TROUGH DUE 1 EACH MISC MISCELLANE ONE (13:00)
--- NOTE | 2023-10-18 13:47 | P.PN ---
Subjective Progress Note Date: 10/18/23 63-year-old female patient was being seen in consultation for worsening shortness of breath. The patient's symptoms started approximately 8-10 days ago. She was started with increased dyspnea, cough, congestion and she was also experiencing pain in her right posterior upper chest area. She ultimately decided to come in to the hospital where she was diagnosed having a right upper lobe pneumonia. The patient is very well-known to me. The patient has a remote history of small cell lung cancer and she has undergone a previous right upper lobe resection followed by chemotherapy and radiation therapy. 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 Her workforce specialist was out of town, Dr. Moncho Dawson. . Note that, the patient presented to us back in 2021 with hemoptysis. At that time, a bronchoscopy was done and the cultures were positive for Bordetella bronchiseptica. Fungal cultures negative for Aspergillus. At that time, the patient completed a course of Levaquin. A PET scan done May, demonstrated right upper lobe consolidation changes with intermediate FDG uptake at the prior surgical bed. Lesion was cavitating and suspicious for inflammatory/infectious disease process. There was also a stable size FDG avid left adrenal nodule. A follow-up bronchoscopy was done on 08/13/2023 there was significant narrowing of the right middle lobe bronchus due to anatomic distortion and volume loss and pulling effect from the previous right upper lobectomy. A transbronchial needle aspirate of the cavitating lesion was again negative for any cytologically malignant cells. C ultures were positive for Staphylococcus aureus, thought to be contaminant. Fungal cultures again negative for fungal infection or Aspergillus. For now, there is a concern that the patient has a extensive right upper lobe pneumonia. A CAT scan of the chest was repeated in the emergency department shows volume loss in the right lung which is quite expected. At the same time, there was extensive consolidation in the upper part of the lungs with some gas formation suggestive of a cavitating/necrotizing pneumonia. At the same time, there was enlargement of a left adrenal opacity which was currently measuring around 2.9 cm in size compared to 2.4 cm in size on previous evaluation. Note that a previous PET scan also showed some metabolic activity in the adrenal gland. As such, the patient was hospitalized. Her lochia still was elevated at 4.8 and dropped down to 1.2. The white cell count is elevated and the patient has a white cell count of 20 with a hemoglobin 10.7, her pro-calcitonin level is at 13.4. BUN is at 12 with a creatinine of 0.38 and a sodium level is at 139. The patient is currently on 2 L of oxygen by nasal cannula. She is hemodynamically stable. Affect was slightly hypotensive at time of admission and this improved with fluids. She is scheduled to underwent bronchoscopy and the bronchial lavage of the right lung to establish microbial diagnosis. Meanwhile, the patient was started on a combination of cefepime and vancomycin. Noted the patient was also infected with Covid 19 approximately a month ago and this was treated on outpatient basis without any hospitalization. On 10/15/2023, the patient is being seen for a follow-up. The patient is feeli ng better. She is actively bronchospastic and wheezy and she is on on a combination of bronchodilators and steroids.. Bronchoscopy and the bronchial lavage of the right lung was done and there is also still pending for now. Meanwhile, the patient is on a combination of cefepime and vancomycin. She remains on 2 L of oxygen by nasal cannula with pulse ox of 96%. She is afebrile at this point and she is also hemodynamically stable. Noted the bronchoscopy was done without any complications, awaiting the results of bronchioloalveolar lavage. We will also proceed with daily chest x-rays. On 10/16/2023, I'm seeing the patient for a follow-up. Clinically she is improving slowly. The white cell count is dropped down to 9. The pro- calcitonin level is also improving and the pro-calcitonin level is down to 9.7. Meanwhile, the results of the bronchial lavage are still negative and the pat ient is covered with the same antibiotics which include a combination of cefepime and vancomycin. The white cell count is down to 9.3 and the hemoglobin is at 12.1. The patient is currently on bronchodilators and steroids. She is less SPASTIC and wheezing compared to yesterday. Sodium level is at 133 and a potassium level is at 4.7. The BUN is at 40 with a creatinine of 0.5. Pulse ox is 93% on room air oxygen. 10/17/2023, the patient is improving. Less short of breath on today's evaluati on. Remains on cefepime and vancomycin. The bronchial lavage showing strep group A and presumed staph aureus. As such, the patient be kept on the same antibiotic as April the patient is clinically improving. She is currently on room air oxygen. Cough and congestion and wheezing is improved considerably and the pro-calcitonin level is also declining. No new complaints otherwise for today. 10/18/2023, the patient continues to improve. No significant shortness of breath on today's evaluation. She does have some ongoing exertional dyspnea however. No fever. No chills. The bronchial lavage showing staph aureus and MSSA in addition to strep group a. The patient recovered with a combination of Zosyn and vancomycin. Vancomycin will be discontinued today. The patient remains on DuoNeb updrafts. The patient remains on Symbicort. The patient remains on IV Solu Medrol 60 mg every 6 hours. Her blood work is still pending from today. No other significant events overnight otherwise. Condition is stable. Clinically she is improving. She is obviously short of breath on room air oxygen. Objective - Vital Signs Vital signs: Vital Signs Temp 98.1 F 10/17/23 08:34 Pulse 96 10/18/23 09:09 Resp 18 10/18/23 08:30 BP 136/82 10/18/23 08:30 Pulse Ox 94 L 10/18/23 08:30 FiO2 21 10/17/23 08:54 Intake & Output 10/17/23 10/18/23 10/18/23 18:59 06:59 18:59 Intake Total 480 240 Output Total 0 Balance 480 240 Intake: Oral 480 240 Output: Gastric Drainage 0 Urine 0 Stool 0 Urine/Stool Mix 0 Emesis 0 Oral Regurgitation 0 Other 0 Other: Voiding Method Toilet Toilet # Voids 0 1 # Bowel Movements 0 - Exam GENERAL EXAM: Alert, 63-year-old white female, comfortable in no apparent distress. Voice is hoarse. The patient is currently on room air oxygen HEAD: Normocephalic and atraumatic EYES: Normal reaction of pupils, equal size. NOSE: Clear with pink turbinates. THROAT: No erythema or exudates. NECK: No masses, no JVD. CHEST: No chest wall deformity. LUNGS: Equal air entry with scattered rhonchi and right-sided dullness. The patient has diminished breath on the lung with diffuse expiratory wheezes. CVS: S1 and S2 normal with no audible murmur, regular rhythm. No extra heart sounds ABDOMEN: No hepatosplenomegaly, active bowel sounds, no guarding or rigidity. SPINE: No scoliosis or deformity. Right lateral soft tissue swelling at the scapular level SKIN: No rashes CENTRAL NERVOUS SYSTEM: No focal deficits, tone is normal in all 4 extremities. EXTREMITIES: There is no peripheral edema, clubbing, or cyanosis. Peripheral pulses are intact. - Labs CBC & Chem 7: 10/16/23 08:05 10/18/23 08:39 Labs: Microbiology - Last 24 Hours (Table) 10/14/23 12:45 Gram Stain - Final Bronchoalviolar Lavage - Right Bronchial Washings Culture - Final Staphylococcus aureus Strep A Assessment and Plan Plan: Right lung pneumonia. The patient has developed a area of consolidation of the right upper zones and at the same time the patient has leukocytosis, elevated pro-calcitonin level and she was initially septic condition at time of admission with some mild hypotension and lactic acidosis. Note that her blood pressure improved with fluid resuscitation lactic acid also improved. This is a new large right sided cavitating masslike consolidation, Chest CTA on arrival demonstrates posttreatment volume loss and surgical changes on the right, new extensive airspace disease and consolidation extending in the periphery of presumably the right middle lobe with areas of cavitation. Bronchoscopy was done on 10/15/2023 and the BAL is showing a combination of staph aureus and strep group A. The patient will be kept on the same antibiotics. Clinically improving. 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 Follow-up bronchoscopies and fungal cultures negative for Aspergillus 2. History of recurrent hemoptysis, inactive Mild normocytic, normochromic anemia Recent history of COVID-19 infection, not requiring hospitalization. History of [employer] anerysm and clipping Former tobacco smoke Plan Discontinue the vancomycin Continue IV cefepime Will titrate oxygen flow to maintain saturation above 90%, currently on room air Oxygenation is improved. Clinically the patient is improving Continue IV Solu-Medrol for another 24 hours Continue bronchodilators Check urine antigen for legionella was negative The viral panel is negative\ This is most likely a bacterial infection as the patient has also elevated pro- calcitonin level and the level is also improving The patient will need a biopsy of the left adrenal gland at the later stage once his condition is more stable We'll monitor pneumonia and obtain daily chest x-rays, chest x-ray from today shows a stable consolidation in the right lung along with an area of cavitary pneumonia We'll continue to follow make further recommendations based on her progress.
[2023-10-19] MEDS: busPIRone HCl 5 MG TAB PO PRN (04:19)
[2023-10-19] MEDS: SODIUM CHLORIDE 0.9% 1,000 ML IV SCH ×2 (05:38→17:05)
[2023-10-19] MEDS: PANTOPRAZOLE 40 MG TABLET PO SCH ×2 (06:17→17:05)
[2023-10-19] MEDS: methylPREDNISolone SOD SUCCI 125 MG/2 ML VIAL IV SCH ×3 (06:17→17:05)
[2023-10-19 08:55] LABS: African American GFR (CKD) >90 (>60 ml/min/1.73 sqM); Non-African American GFR(CKD) >90 (>60 ml/min/1.73 sqM)
[2023-10-19] MEDS: guaiFENesin 600 MG TABLET.ER PO SCH ×2 (09:13→20:08)
[2023-10-19] MEDS: CITALOPRAM HYDROBROMIDE 20 MG TAB PO SCH (09:13)
[2023-10-19] MEDS: POTASSIUM CHLORIDE ER 20 MEQ TAB.ER PO SCH ×3 (09:14→20:09)
[2023-10-19] MEDS: CEFEPIME 2 GM in SODIUM CHLORIDE 0.9% 100 ML IVPB SCH ×2 (09:14→20:09)
[2023-10-19] MEDS: HYDROcodone/APAP 7.5-325MG 1 EACH TAB PO PRN ×2 (09:15→20:09)
[2023-10-19] MEDS: IPRATROPIUM-ALBUTEROL 3 ML NEB INHALATION SCH ×4 (09:27→20:22)
[2023-10-19] MEDS: SYMBICORT 160-4.5 MCG INHALER INHALATION SCH ×2 (09:27→20:22)
[2023-10-19 13:26] VITALS: BMI 24.0
--- NOTE | 2023-10-19 16:11 | P.PN ---
Subjective Progress Note Date: 10/19/23 Principal diagnosis: Acute hypoxic respiratory, secondary to acute right lung pneumonia and acute exacerbation of COPD 63-year-old female patient was being seen in consultation for worsening shortness of breath. The patient's symptoms started approximately 8-10 days ago. She was started with increased dyspnea, cough, congestion and she was also experiencing pain in her right posterior upper chest area. She ultimately decided to come in to the hospital where she was diagnosed having a right upper lobe pneumonia. The patient is very well-known to me. The patient has a remote history of small cell lung cancer and she has undergone a previous right upper lobe resection followed by chemotherapy and radiation therapy. 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 Moncho Dawson. . Note that, the patient presented to us back in 2021 with hemoptysis. At that time, a bronchoscopy was done and the cultures were positive for Bordetella bronchiseptica. Fungal cultures negative for Aspergillus. At that time, the patient completed a course of Levaquin. A PET scan done May, demonstrated right upper lobe consolidation changes with intermediate FDG uptake at the prior surgical bed. Lesion was cavitating and suspicious for inflammatory/infectious disease process. There was also a stable size FDG avid left adrenal nodule. A follow-up bronchoscopy was done on 08/13/2023 there was significant narrowing of the right middle lobe bronchus due to anatomic distortion and volume loss and pulling effect from the previous right upper lobectomy. A transbronchial needle aspirate of the cavitating lesion was again negative for any cytologically malignant cells. Cultures were positive for Staphylococcus aureus, thought to be contaminant. Fungal cultures again negative for fungal infection or Aspergillus. For now, there is a concern that the patient has a extensive right upper lobe pneumonia. A CAT scan of the chest was repeated in the emergency department shows volume loss in the right lung which is quite expected. At the same time, there was extensive consolidation in the upper part of the lungs with some gas formation suggestive of a cavitating/necrotizing pneumonia. At the same time, there was enlargement of a left adrenal opacity which was currently measuring around 2.9 cm in size compared to 2.4 cm in size on previous evaluation. Note that a previous PET scan also showed some metabolic activity in the adrenal gland. As such, the patient was hospitalized. Her lochia still was elevated at 4.8 and dropped down to 1.2. The white cell count is elevated and the patient has a white cell count of 20 with a hemoglobin 10.7, her pro-calcitonin level is at 13.4. BUN is at 12 with a creatinine of 0.38 and a sodium level is at 139. The patient is currently on 2 L of oxygen by nasal cannula. She is hemodynamically stable. Affect was slightly hypotensive at time of admission and this improved with fluids. She is scheduled to underwent bronchoscopy and the bronchial lavage of the right lung to establish microbial diagnosis. Meanwhile, the patient was started on a combination of cefepime and vancomycin. Noted the patient was also infected with Covid 19 approximately a month ago and this was treated on outpatient basis without any hospitalization. On 10/15/2023, the patient is being seen for a follow-up. The patient is feeling better. She is actively bronchospastic and wheezy and she is on on a combination of bronchodilators and steroids.. Bronchoscopy and the bronchial lavage of the right lung was done and there is also still pending for now. Meanwhile, the patient is on a combination of cefepime and vancomycin. She remains on 2 L of oxygen by nasal cannula with pulse ox of 96%. She is afebrile at this point and she is also hemodynamically stable. Noted the bronchoscopy was done without any complications, awaiting the results of bronchioloalveolar lavage. We will also proceed with daily chest x-rays. On 10/16/2023, I'm seeing the patient for a follow-up. Clinically she is improving slowly. The white cell count is dropped down to 9. The pro- calcitonin level is also improving and the pro-calcitonin level is down to 9.7. Meanwhile, the results of the bronchial lavage are still negative and the patient is covered with the same antibiotics which include a combination of cefepime and vancomycin. The white cell count is down to 9.3 and the hemoglobin is at 12.1. The patient is currently on bronchodilators and steroids. She is less SPASTIC and wheezing compared to yesterday. Sodium level is at 133 and a potassium level is at 4.7. The BUN is at 40 with a creatinine of 0.5. Pulse ox is 93% on room air oxygen. 10/17/2023, the patient is improving. Less short of breath on today's evaluation. Remains on cefepime and vancomycin. The bronchial lavage showing strep group A and presumed staph aureus. As such, the patient be kept on the same antibiotic as April the patient is clinically improving. She is currently on room air oxygen. Cough and congestion and wheezing is improved considerably and the pro-calcitonin level is also declining. No new complaints otherwise for today. 10/18/2023, the patient continues to improve. No significant shortness of breath on today's evaluation. She does have some ongoing exertional dyspnea how ever. No fever. No chills. The bronchial lavage showing staph aureus and MSSA in addition to strep group a. The patient recovered with a combination of Zosyn and vancomycin. Vancomycin will be discontinued today. The patient remains on DuoNeb updrafts. The patient remains on Symbicort. The patient remains on IV Solu Medrol 60 mg every 6 hours. Her blood work is still pending from today. No other significant events overnight otherwise. Condition is stable. Clinically she is improving. She is obviously short of breath on room air oxygen. Patient was reevaluated today on 10/19/2023, patient is feeling better, breathing a lot easier, her BAL came back positive for Staph aureus and MSSA in addition to strep group A remains on appropriate antibiotics, vancomycin has been discontinued remains on Zosyn. Patient remains on bronchodilators, breathing easier, feeling better overall. Objective - Vital Signs Vital signs: Vital Signs Temp 97.3 F L 10/19/23 12:00 Pulse 102 H 10/19/23 12:00 Resp 18 10/19/23 12:00 BP 139/79 10/19/23 12:00 Pulse Ox 97 10/19/23 12:00 FiO2 21 10/17/23 08:54 Intake & Output 10/18/23 10/19/23 10/19/23 18:59 06:59 18:59 Intake Total 1908 1600 Output Total 0 Balance 1908 1600 Weight 63.503 kg Intake: Intake, IV Titration 950 700 Amount Cefepime 2 gm In Sodium 100 100 Chloride 0.9% 100 ml @ 25 mls/hr IVPB Q12HR [facility] Rx #:[id number] Sodium Chloride 0.9% 1, 600 600 000 ml @ 75 mls/hr IV . [id number] [facility] Rx#:[id number] Vancomycin 1,250 mg In 250 Sodium Chloride 0.9% 250 ml @ 125 mls/hr IVPB Q8H [facility] Rx#:[id number] Oral 958 900 Output: Stool 0 Other: Voiding Method Toilet Toilet # Voids 2 - Exam GENERAL EXAM: Alert, 63-year-old white female, comfortable in no apparent distress. HEAD: Normocephalic and atraumatic EYES: Normal reaction of pupils, equal size. NOSE: Clear with pink turbinates. THROAT: No erythema or exudates. NECK: No masses, no JVD. CHEST: No chest wall deformity. LUNGS: Scattered rhonchi and wheezes noted bilaterally CVS: S1 and S2 normal with no audible murmur, regular rhythm. No extra heart sounds ABDOMEN: No hepatosplenomegaly, active bowel sounds, no guarding or rigidity. SKIN: No rashes CENTRAL NERVOUS SYSTEM: Alert and oriented x 3 no gross focal deficit EXTREMITIES: No clubbing edema or cyanosis - Labs CBC & Chem 7: 10/16/23 08:05 10/19/23 07:31 Labs: Abnormal Lab Results - Last 24 Hours (Table) 10/19/23 Range/Units 07:31 Creatinine 0.45 L (0.52-1.04) mg/dL Microbiology - Last 24 Hours (Table) 10/13/23 12:22 Blood Culture - Final Blood 10/13/23 12:22 Blood Culture - Final Blood Assessment and Plan Assessment: Impression: Acute hypoxic respiratory failure secondary to acute pneumonia and acute exacerbation of COPD Acute MSSA right lung pneumonia. 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 History of recurrent hemoptysis, inactive Mild normocytic, normochromic anemia Recent history of COVID-19 infection, not requiring hospitalization. History of [employer] anerysm and clipping Former tobacco smoke Recommendation: Continue antibiotics, patient is now on cefepime, off vancomycin. Continue bronchodilators Continue Solu-Medrol Continue Symbicort Not quite ready for discharge planning Will continue to follow Time with Patient: Less than 30
[2023-10-20] MEDS: methylPREDNISolone SOD SUCCI 125 MG/2 ML VIAL IV SCH ×5 (00:05→23:44)
[2023-10-20] MEDS: ACETAMINOPHEN TAB 325 MG TAB PO PRN (05:53)
[2023-10-20] MEDS: PANTOPRAZOLE 40 MG TABLET PO SCH ×2 (05:53→16:26)
[2023-10-20] MEDS: busPIRone HCl 5 MG TAB PO PRN ×2 (05:53→17:39)
[2023-10-20] MEDS: SYMBICORT 160-4.5 MCG INHALER INHALATION SCH ×2 (08:47→20:56)
[2023-10-20] MEDS: IPRATROPIUM-ALBUTEROL 3 ML NEB INHALATION SCH ×4 (08:47→20:56)
[2023-10-20] MEDS: CEFEPIME 2 GM in SODIUM CHLORIDE 0.9% 100 ML IVPB SCH ×2 (08:49→21:35)
[2023-10-20] MEDS: guaiFENesin 600 MG TABLET.ER PO SCH ×2 (08:50→21:35)
[2023-10-20] MEDS: CITALOPRAM HYDROBROMIDE 20 MG TAB PO SCH (08:50)
[2023-10-20] MEDS: POTASSIUM CHLORIDE ER 20 MEQ TAB.ER PO SCH ×3 (08:50→20:57)
[2023-10-20] MEDS: SODIUM CHLORIDE 0.9% 1,000 ML IV SCH ×2 (08:50→23:12)
--- NOTE | 2023-10-20 13:35 | P.PN ---
Subjective Progress Note Date: 10/20/23 63-year-old female patient was being seen in consultation for worsening shortness of breath. The patient's symptoms started approximately 8-10 days ago. She was started with increased dyspnea, cough, congestion and she was also experiencing pain in her right posterior upper chest area. She ultimately d ecided to come in to the hospital where she was diagnosed having a right upper lobe pneumonia. The patient is very well-known to me. The patient has a remote history of small cell lung cancer and she has undergone a previous right upper lobe resection followed by chemotherapy and radiation therapy. 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 Moncho Dawson. . Note that, the patient presented to us back in 2021 with hemoptysis. At that time, a bronchoscopy was done and the cultures were positive for Bordetella bronchiseptica. Fungal cultures negative for Aspergillus. At that time, the patient completed a course of Levaquin. A PET scan done May, demonstrated right upper lobe consolidation changes with intermediate FDG uptake at the prior surgical bed. Lesion was cavitating and suspicious for inflammatory/infectious disease process. There was also a stable size FDG avid left adrenal nodule. A follow-up bronchoscopy was done on 08/13/2023 there was significant narrowing of the right middle lobe bronchus due to anatomic distortion and volume loss and pulling effect from the previous right upper lobectomy. A transbronchial needle aspirate of the cavitating lesion was again negative for any cytologically malignant cells. Cu ltures were positive for Staphylococcus aureus, thought to be contaminant. Fungal cultures again negative for fungal infection or Aspergillus. For now, there is a concern that the patient has a extensive right upper lobe pneumonia. A CAT scan of the chest was repeated in the emergency department shows volume loss in the right lung which is quite expected. At the same time, there was extensive consolidation in the upper part of the lungs with some gas formation suggestive of a cavitating/necrotizing pneumonia. At the same time, there was enlargement of a left adrenal opacity which was currently measuring around 2.9 cm in size compared to 2.4 cm in size on previous evaluation. Note that a previous PET scan also showed some metabolic activity in the adrenal gland. As such, the patient was hospitalized. Her lochia still was elevated at 4.8 and dropped down to 1.2. The white cell count is elevated and the patient has a white cell count of 20 with a hemoglobin 10.7, her pro-calcitonin level is at 13.4. BUN is at 12 with a creatinine of 0.38 and a sodium level is at 139. The patient is currently on 2 L of oxygen by nasal cannula. She is hemodynamically stable. Affect was slightly hypotensive at time of admission and this improved with fluids. She is scheduled to underwent bronchoscopy and the bronchial lavage of the right lung to establish microbial diagnosis. Meanwhile, the patient was started on a combination of cefepime and vancomycin. Noted the patient was also infected with Covid 19 approximately a month ago and this was treated on outpatient basis without any hospitalization. On 10/15/2023, the patient is being seen for a follow-up. The patient is feelin g better. She is actively bronchospastic and wheezy and she is on on a combination of bronchodilators and steroids.. Bronchoscopy and the bronchial lavage of the right lung was done and there is also still pending for now. Meanwhile, the patient is on a combination of cefepime and vancomycin. She remains on 2 L of oxygen by nasal cannula with pulse ox of 96%. She is afebrile at this point and she is also hemodynamically stable. Noted the bronchoscopy was done without any complications, awaiting the results of bronchioloalveolar lavage. We will also proceed with daily chest x-rays. On 10/16/2023, I'm seeing the patient for a follow-up. Clinically she is improving slowly. The white cell count is dropped down to 9. The pro- calcitonin level is also improving and the pro-calcitonin level is down to 9.7. Meanwhile, the results of the bronchial lavage are still negative and the boy ent is covered with the same antibiotics which include a combination of cefepime and vancomycin. The white cell count is down to 9.3 and the hemoglobin is at 12.1. The patient is currently on bronchodilators and steroids. She is less SPASTIC and wheezing compared to yesterday. Sodium level is at 133 and a potassium level is at 4.7. The BUN is at 40 with a creatinine of 0.5. Pulse ox is 93% on room air oxygen. 10/17/2023, the patient is improving. Less short of breath on today's evaluatio n. Remains on cefepime and vancomycin. The bronchial lavage showing strep group A and presumed staph aureus. As such, the patient be kept on the same antibiotic as April the patient is clinically improving. She is currently on room air oxygen. Cough and congestion and wheezing is improved considerably and the pro-calcitonin level is also declining. No new complaints otherwise for today. 10/18/2023, the patient continues to improve. No significant shortness of breath on today's evaluation. She does have some ongoing exertional dyspnea however. No fever. No chills. The bronchial lavage showing staph aureus and MSSA in addition to strep group a. The patient recovered with a combination of Zosyn and vancomycin. Vancomycin will be discontinued today. The patient remains on DuoNeb updrafts. The patient remains on Symbicort. The patient remains on IV Solu Medrol 60 mg every 6 hours. Her blood work is still pending from today. No other significant events overnight otherwise. Condition is stable. Clinically she is improving. She is obviously short of breath on room air oxygen. Patient was reevaluated today on 10/19/2023, patient is feeling better, breathing a lot easier, her BAL came back positive for Staph aureus and MSSA in addition to strep group A remains on appropriate antibiotics, vancomycin has been discontinued remains on Zosyn. Patient remains on bronchodilators, breathing easier, feeling better overall. The patient is seen today October 20, 2023 in follow-up on the regular medical floor. She is awake and alert in no acute distress. Maintaining good O2 saturation in the 90s on room air. Sitting up in a chair at the bedside. She remains on antibiotics in the form of cefepime. Continue on DuoNeb ventilations, Symbicort, Solu-Medrol. Bronchoalveolar lavage was positive for Staphylococcus aureus and strep A. Objective - Vital Signs Vital signs: Vital Signs Temp 97.7 F 10/20/23 07:12 Pulse 92 10/20/23 11:50 Resp 10/20/23 07:12 BP 152/89 10/20/23 07:12 Pulse Ox 97 10/20/23 07:12 FiO2 21 10/17/23 08:54 Intake & Output 10/19/23 10/20/23 10/20/23 18:59 06:59 18:59 Intake Total 1900 Balance 1900 Weight 63.503 kg Intake: Intake, IV Titration 1000 Amount Cefepime 2 gm In Sodium 100 Chloride 0.9% 100 ml @ 25 mls/hr IVPB Q12HR [facility] Rx #:[id number] Sodium Chloride 0.9% 1, 900 000 ml @ 75 mls/hr IV . [id number] [facility] Rx#:[id number] Oral 900 Other: # Voids 2 - Exam GENERAL EXAM: Alert, active, 63-year-old female, on room air, comfortable in no apparent distress. HEAD: Normocephalic. EYES: Normal reaction of pupils, equal size. NOSE: Clear with pink turbinates. THROAT: No erythema or exudates. NECK: No masses, no JVD. CHEST: No chest wall deformity. LUNGS: Equal air entry with few scattered rhonchi. CVS: S1 and S2 normal with no audible murmur, regular rhythm. ABDOMEN: No hepatosplenomegaly, normal bowel sounds, no guarding or rigidity. SPINE: No scoliosis or deformity SKIN: No rashes CENTRAL NERVOUS SYSTEM: No focal deficits, tone is normal in all 4 extremities. EXTREMITIES: There is no peripheral edema. No clubbing, no cyanosis. Peripheral pulses are intact. - Labs CBC & Chem 7: 10/16/23 08:05 10/19/23 07:31 Assessment and Plan Assessment: Acute hypoxic respiratory failure secondary to acute pneumonia and acute exacerbation of COPD Acute MSSA right lung pneumonia. 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 History of recurrent hemoptysis, inactive Mild normocytic, normochromic anemia Recent history of COVID-19 infection, not requiring hospitalization. 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 Will continue to follow I have personally seen and examined the patient, performed the documentation and the assessment and plan as written. Number of minutes spent on the visit: 10.
[2023-10-20] MEDS: HYDROcodone/APAP 7.5-325MG 1 EACH TAB PO PRN (18:39)
[2023-10-21] MEDS: methylPREDNISolone SOD SUCCI 125 MG/2 ML VIAL IV SCH ×3 (05:43→18:45)
[2023-10-21] MEDS: PANTOPRAZOLE 40 MG TABLET PO SCH ×2 (05:43→18:45)
[2023-10-21] MEDS: IPRATROPIUM-ALBUTEROL 3 ML NEB INHALATION SCH ×4 (08:01→21:11)
[2023-10-21] MEDS: SYMBICORT 160-4.5 MCG INHALER INHALATION SCH ×2 (08:03→21:11)
[2023-10-21] MEDS: HYDROcodone/APAP 7.5-325MG 1 EACH TAB PO PRN (08:58)
[2023-10-21] MEDS: CEFEPIME 2 GM in SODIUM CHLORIDE 0.9% 100 ML IVPB SCH ×2 (08:59→22:20)
[2023-10-21] MEDS: guaiFENesin 600 MG TABLET.ER PO SCH ×2 (08:59→22:20)
[2023-10-21] MEDS: SODIUM CHLORIDE 0.9% 1,000 ML IV SCH (08:59)
[2023-10-21] MEDS: CITALOPRAM HYDROBROMIDE 20 MG TAB PO SCH (08:59)
[2023-10-21] MEDS: POTASSIUM CHLORIDE ER 20 MEQ TAB.ER PO SCH ×3 (08:59→22:20)
--- NOTE | 2023-10-21 13:33 | P.PN ---
Subjective Progress Note Date: 10/21/23 63-year-old female patient was being seen in consultation for worsening shortness of breath. The patient's symptoms started approximately 8-10 days ago. She was started with increased dyspnea, cough, congestion and she was also experiencing pain in her right posterior upper chest area. She ultimately d ecided to come in to the hospital where she was diagnosed having a right upper lobe pneumonia. The patient is very well-known to me. The patient has a remote history of small cell lung cancer and she has undergone a previous right upper lobe resection followed by chemotherapy and radiation therapy. 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 Moncho Dawson. . Note that, the patient presented to us back in 2021 with hemoptysis. At that time, a bronchoscopy was done and the cultures were positive for Bordetella bronchiseptica. Fungal cultures negative for Aspergillus. At that time, the patient completed a course of Levaquin. A PET scan done May, demonstrated right upper lobe consolidation changes with intermediate FDG uptake at the prior surgical bed. Lesion was cavitating and suspicious for inflammatory/infectious disease process. There was also a stable size FDG avid left adrenal nodule. A follow-up bronchoscopy was done on 08/13/2023 there was significant narrowing of the right middle lobe bronchus due to anatomic distortion and volume loss and pulling effect from the previous right upper lobectomy. A transbronchial needle aspirate of the cavitating lesion was again negative for any cytologically malignant cells. Cu ltures were positive for Staphylococcus aureus, thought to be contaminant. Fungal cultures again negative for fungal infection or Aspergillus. For now, there is a concern that the patient has a extensive right upper lobe pneumonia. A CAT scan of the chest was repeated in the emergency department shows volume loss in the right lung which is quite expected. At the same time, there was extensive consolidation in the upper part of the lungs with some gas formation suggestive of a cavitating/necrotizing pneumonia. At the same time, there was enlargement of a left adrenal opacity which was currently measuring around 2.9 cm in size compared to 2.4 cm in size on previous evaluation. Note that a previous PET scan also showed some metabolic activity in the adrenal gland. As such, the patient was hospitalized. Her lochia still was elevated at 4.8 and dropped down to 1.2. The white cell count is elevated and the patient has a white cell count of 20 with a hemoglobin 10.7, her pro-calcitonin level is at 13.4. BUN is at 12 with a creatinine of 0.38 and a sodium level is at 139. The patient is currently on 2 L of oxygen by nasal cannula. She is hemodynamically stable. Affect was slightly hypotensive at time of admission and this improved with fluids. She is scheduled to underwent bronchoscopy and the bronchial lavage of the right lung to establish microbial diagnosis. Meanwhile, the patient was started on a combination of cefepime and vancomycin. Noted the patient was also infected with Covid 19 approximately a month ago and this was treated on outpatient basis without any hospitalization. On 10/15/2023, the patient is being seen for a follow-up. The patient is feelin g better. She is actively bronchospastic and wheezy and she is on on a combination of bronchodilators and steroids.. Bronchoscopy and the bronchial lavage of the right lung was done and there is also still pending for now. Meanwhile, the patient is on a combination of cefepime and vancomycin. She remains on 2 L of oxygen by nasal cannula with pulse ox of 96%. She is afebrile at this point and she is also hemodynamically stable. Noted the bronchoscopy was done without any complications, awaiting the results of bronchioloalveolar lavage. We will also proceed with daily chest x-rays. On 10/16/2023, I'm seeing the patient for a follow-up. Clinically she is improving slowly. The white cell count is dropped down to 9. The pro- calcitonin level is also improving and the pro-calcitonin level is down to 9.7. Meanwhile, the results of the bronchial lavage are still negative and the boy ent is covered with the same antibiotics which include a combination of cefepime and vancomycin. The white cell count is down to 9.3 and the hemoglobin is at 12.1. The patient is currently on bronchodilators and steroids. She is less SPASTIC and wheezing compared to yesterday. Sodium level is at 133 and a potassium level is at 4.7. The BUN is at 40 with a creatinine of 0.5. Pulse ox is 93% on room air oxygen. 10/17/2023, the patient is improving. Less short of breath on today's evaluatio n. Remains on cefepime and vancomycin. The bronchial lavage showing strep group A and presumed staph aureus. As such, the patient be kept on the same antibiotic as April the patient is clinically improving. She is currently on room air oxygen. Cough and congestion and wheezing is improved considerably and the pro-calcitonin level is also declining. No new complaints otherwise for today. 10/18/2023, the patient continues to improve. No significant shortness of breath on today's evaluation. She does have some ongoing exertional dyspnea however. No fever. No chills. The bronchial lavage showing staph aureus and MSSA in addition to strep group a. The patient recovered with a combination of Zosyn and vancomycin. Vancomycin will be discontinued today. The patient remains on DuoNeb updrafts. The patient remains on Symbicort. The patient remains on IV Solu Medrol 60 mg every 6 hours. Her blood work is still pending from today. No other significant events overnight otherwise. Condition is stable. Clinically she is improving. She is obviously short of breath on room air oxygen. Patient was reevaluated today on 10/19/2023, patient is feeling better, breathing a lot easier, her BAL came back positive for Staph aureus and MSSA in addition to strep group A remains on appropriate antibiotics, vancomycin has been discontinued remains on Zosyn. Patient remains on bronchodilators, breathing easier, feeling better overall. The patient is seen today October 20, 2023 in follow-up on the regular medical floor. She is awake and alert in no acute distress. Maintaining good O2 saturation in the 90s on room air. Sitting up in a chair at the bedside. She remains on antibiotics in the form of cefepime. Continue on DuoNeb ventilations, Symbicort, Solu-Medrol. Bronchoalveolar lavage was positive for Staphylococcus aureus and strep A. The patient is seen today October 21, 2023 in follow-up on the regular medical floor. She is currently sitting up in bed. Awake and alert in no acute distress. She is better today compared to yesterday. Not quite back to her baseline. Still with a loose congested cough. She remains on cefepime. Her bronchial wash cultures were positive for Staphylococcus aureus, strep A. She remains on DuoNeb inhalations, Mucinex, Symbicort, Solu-Medrol. Objective - Vital Signs Vital signs: Vital Signs Temp 98.1 F 10/21/23 07:31 Pulse 87 10/21/23 11:46 Resp 21 10/21/23 07:31 BP 128/84 10/21/23 07:31 Pulse Ox 97 10/21/23 08:01 FiO2 21 10/17/23 08:54 Intake & Output 10/20/23 10/21/23 10/21/23 18:59 06:59 18:59 Intake Total 900 Balance 900 Intake: Intake, IV Titration 900 Amount Sodium Chloride 0.9% 1, 900 000 ml @ 75 mls/hr IV . [id number] [facility] Rx#:[id number] Other: Voiding Method Toilet # Voids 2 - Exam GENERAL EXAM: Alert, active, 63-year-old female, comfortable in no apparent distress. HEAD: Normocephalic. EYES: Normal reaction of pupils, equal size. NOSE: Clear with pink turbinates. THROAT: No erythema or exudates. NECK: No masses, no JVD. CHEST: No chest wall deformity. LUNGS: Equal air entry with few scattered rhonchi. On room air. CVS: S1 and S2 normal with no audible murmur, regular rhythm. ABDOMEN: No hepatosplenomegaly, normal bowel sounds, no guarding or rigidity. SPINE: No scoliosis or deformity SKIN: No rashes CENTRAL NERVOUS SYSTEM: No focal deficits, tone is normal in all 4 extremities. EXTREMITIES: There is no peripheral edema. No clubbing, no cyanosis. Peripheral pulses are intact. 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 History of recurrent hemoptysis, inactive Mild normocytic, normochromic anemia Recent history of COVID-19 infection, not requiring hospitalization. History of [employer] anerysm and clipping Former tobacco smoke Plan: The patient was seen and evaluated Medications reviewed Continue the current treatment plan Continue IV fluids Stable and on room air Probable discharge in the a.m. Will continue to follow I have personally seen and examined the patient, performed the documentation and the assessment and plan as written. Number of minutes spent on the visit: 10.
[2023-10-21] MEDS: ALPRAZolam 0.25 MG TAB PO PRN (22:20)
[2023-10-22] MEDS: methylPREDNISolone SOD SUCCI 125 MG/2 ML VIAL IV SCH ×3 (00:29→12:43)
--- NOTE | 2023-10-22 05:30 | PN ---
PROGRESS NOTE CHIEF COMPLAINT: Exacerbation of COPD and pneumonia. HISTORY OF PRESENT ILLNESS: This lady is doing much better. Chest is more clear and she is much less short of breath. PHYSICAL EXAMINATION: CHEST: Quite clear. CARDIAC: Normal. ABDOMEN: Soft and nontender. IMPRESSION: Resolving chronic obstructive pulmonary disease issues and pneumonitis. PLAN: Possibly home tomorrow. MMODL / IJN: [id number] /
[2023-10-22] MEDS: PANTOPRAZOLE 40 MG TABLET PO SCH (06:37)
--- NOTE | 2023-10-22 06:45 | PN ---
PROGRESS NOTE CHIEF COMPLAINT: COPD and pneumonitis. HISTORY OF PRESENT ILLNESS: This lady is improving, although she is still quite short of breath and dyspneic. She is not having any chest pain. PHYSICAL EXAMINATION: CHEST: She still has decreased breath sounds with wheezing, rales, and rhonchi throughout. CARDIAC: Normal. She is quite tachypneic with very little exertion. IMPRESSION: 1. Exacerbation of chronic obstructive pulmonary disease. 2. Pneumonitis. PLAN: Continue with pulmonary management as she slowly improves. MMODL / IJN: [id number] /
[2023-10-22] MEDS: HYDROcodone/APAP 7.5-325MG 1 EACH TAB PO PRN (06:55)
--- NOTE | 2023-10-22 07:00 | PN ---
PROGRESS NOTE DATE OF SERVICE: 10/20/2023 CHIEF COMPLAINT: COPD and pneumonia. HISTORY OF PRESENT ILLNESS: This lady continues to slowly improve. She has not had any fever, chills, chest pain, etc. PHYSICAL EXAM: CHEST: More clear. There are still scattered rales and rhonchi with wheezing, but breath sounds are improving. CARDIAC: Normal. IMPRESSION: 1. Exacerbation of chronic obstructive pulmonary disease. 2. Pneumonitis. PLAN: Continue with inpatient management. She continues to improve. MMODL / IJN: [id number] /
--- NOTE | 2023-10-22 07:15 | PN ---
PROGRESS NOTE DATE OF SERVICE: 10/18/2023 CHIEF COMPLAINT: Pneumonitis and COPD. HISTORY OF PRESENT ILLNESS: This lady is definitely improving. Shortness of breath is less. She still requires O2 to get around the room, but she is improving. REVIEW OF SYSTEMS: She has had no fever, chills, chest pain etc. PHYSICAL EXAM: Breath sounds are still diminished with scattered rales and rhonchi and expiratory wheezing and tachycardia, but chest is slightly improved. IMPRESSION: 1. Exacerbation of chronic obstructive pulmonary disease. 2. Pneumonitis. PLAN: Continue with current program as she improves. MMODL / IJN: [id number] /
--- NOTE | 2023-10-22 07:45 | PN ---
PROGRESS NOTE DATE OF SERVICE: 10/17/2023 CHIEF COMPLAINT: Pneumonitis and COPD HISTORY OF PRESENT ILLNESS: This lady is still having a lot of respiratory difficulty. She is very tight and congested. She has had no fever or chills, and she denies chest pain. PHYSICAL EXAMINATION: Breath sounds are diminished. She has rales, rhonchi and expiratory wheezing as well as productive cough. Cardiac exam is normal. IMPRESSION: Pneumonitis with chronic obstructive pulmonary disease. PLAN: Continue management with updrafts, antibiotics, and O2. MMODL / IJN: [id number] /
--- NOTE | 2023-10-22 08:10 | PN ---
PROGRESS NOTE DATE OF SERVICE: 10/16/2023 CHIEF COMPLAINT: Shortness of breath. HISTORY OF PRESENT ILLNESS: This lady remains very short of breath and congested. She is on oxygen around the clock. PHYSICAL EXAMINATION: Breath sounds are poor. She has scattered rales and rhonchi throughout with inspiratory and expiratory wheezing and productive cough. IMPRESSION: Exacerbation of chronic obstructive pulmonary disease with pneumonitis. PLAN: No change in program, and continue with IV fluids, antibiotics, and updrafts as well as steroids. MMODL / IJN: [id number] /
[2023-10-22] MEDS: CEFEPIME 2 GM in SODIUM CHLORIDE 0.9% 100 ML IVPB SCH (08:51)
[2023-10-22] MEDS: CITALOPRAM HYDROBROMIDE 20 MG TAB PO SCH (08:51)
[2023-10-22] MEDS: guaiFENesin 600 MG TABLET.ER PO SCH (08:51)
[2023-10-22] MEDS: POTASSIUM CHLORIDE ER 20 MEQ TAB.ER PO SCH (08:51)
[2023-10-22 09:12] VITALS: BP 134/84; TEMP 98
[2023-10-22] MEDS: IPRATROPIUM-ALBUTEROL 3 ML NEB INHALATION SCH ×3 (09:22→15:43)
[2023-10-22] MEDS: SYMBICORT 160-4.5 MCG INHALER INHALATION SCH (09:23)
[2023-10-22 09:37] VITALS: RESP 18
--- NOTE | 2023-10-22 12:44 | P.PN ---
Subjective Progress Note Date: 10/22/23 63-year-old female patient was being seen in consultation for worsening shortness of breath. The patient's symptoms started approximately 8-10 days ago. She was started with increased dyspnea, cough, congestion and she was also experiencing pain in her right posterior upper chest area. She ultimately d ecided to come in to the hospital where she was diagnosed having a right upper lobe pneumonia. The patient is very well-known to me. The patient has a remote history of small cell lung cancer and she has undergone a previous right upper lobe resection followed by chemotherapy and radiation therapy. 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 Moncho Dawson. . Note that, the patient presented to us back in 2021 with hemoptysis. At that time, a bronchoscopy was done and the cultures were positive for Bordetella bronchiseptica. Fungal cultures negative for Aspergillus. At that time, the patient completed a course of Levaquin. A PET scan done May, demonstrated right upper lobe consolidation changes with intermediate FDG uptake at the prior surgical bed. Lesion was cavitating and suspicious for inflammatory/infectious disease process. There was also a stable size FDG avid left adrenal nodule. A follow-up bronchoscopy was done on 08/13/2023 there was significant narrowing of the right middle lobe bronchus due to anatomic distortion and volume loss and pulling effect from the previous right upper lobectomy. A transbronchial needle aspirate of the cavitating lesion was again negative for any cytologically malignant cells. Cu ltures were positive for Staphylococcus aureus, thought to be contaminant. Fungal cultures again negative for fungal infection or Aspergillus. For now, there is a concern that the patient has a extensive right upper lobe pneumonia. A CAT scan of the chest was repeated in the emergency department shows volume loss in the right lung which is quite expected. At the same time, there was extensive consolidation in the upper part of the lungs with some gas formation suggestive of a cavitating/necrotizing pneumonia. At the same time, there was enlargement of a left adrenal opacity which was currently measuring around 2.9 cm in size compared to 2.4 cm in size on previous evaluation. Note that a previous PET scan also showed some metabolic activity in the adrenal gland. As such, the patient was hospitalized. Her lochia still was elevated at 4.8 and dropped down to 1.2. The white cell count is elevated and the patient has a white cell count of 20 with a hemoglobin 10.7, her pro-calcitonin level is at 13.4. BUN is at 12 with a creatinine of 0.38 and a sodium level is at 139. The patient is currently on 2 L of oxygen by nasal cannula. She is hemodynamically stable. Affect was slightly hypotensive at time of admission and this improved with fluids. She is scheduled to underwent bronchoscopy and the bronchial lavage of the right lung to establish microbial diagnosis. Meanwhile, the patient was started on a combination of cefepime and vancomycin. Noted the patient was also infected with Covid 19 approximately a month ago and this was treated on outpatient basis without any hospitalization. On 10/15/2023, the patient is being seen for a follow-up. The patient is feelin g better. She is actively bronchospastic and wheezy and she is on on a combination of bronchodilators and steroids.. Bronchoscopy and the bronchial lavage of the right lung was done and there is also still pending for now. Meanwhile, the patient is on a combination of cefepime and vancomycin. She remains on 2 L of oxygen by nasal cannula with pulse ox of 96%. She is afebrile at this point and she is also hemodynamically stable. Noted the bronchoscopy was done without any complications, awaiting the results of bronchioloalveolar lavage. We will also proceed with daily chest x-rays. On 10/16/2023, I'm seeing the patient for a follow-up. Clinically she is improving slowly. The white cell count is dropped down to 9. The pro- calcitonin level is also improving and the pro-calcitonin level is down to 9.7. Meanwhile, the results of the bronchial lavage are still negative and the boy ent is covered with the same antibiotics which include a combination of cefepime and vancomycin. The white cell count is down to 9.3 and the hemoglobin is at 12.1. The patient is currently on bronchodilators and steroids. She is less SPASTIC and wheezing compared to yesterday. Sodium level is at 133 and a potassium level is at 4.7. The BUN is at 40 with a creatinine of 0.5. Pulse ox is 93% on room air oxygen. 10/17/2023, the patient is improving. Less short of breath on today's evaluatio n. Remains on cefepime and vancomycin. The bronchial lavage showing strep group A and presumed staph aureus. As such, the patient be kept on the same antibiotic as April the patient is clinically improving. She is currently on room air oxygen. Cough and congestion and wheezing is improved considerably and the pro-calcitonin level is also declining. No new complaints otherwise for today. 10/18/2023, the patient continues to improve. No significant shortness of breath on today's evaluation. She does have some ongoing exertional dyspnea however. No fever. No chills. The bronchial lavage showing staph aureus and MSSA in addition to strep group a. The patient recovered with a combination of Zosyn and vancomycin. Vancomycin will be discontinued today. The patient remains on DuoNeb updrafts. The patient remains on Symbicort. The patient remains on IV Solu Medrol 60 mg every 6 hours. Her blood work is still pending from today. No other significant events overnight otherwise. Condition is stable. Clinically she is improving. She is obviously short of breath on room air oxygen. Patient was reevaluated today on 10/19/2023, patient is feeling better, breathing a lot easier, her BAL came back positive for Staph aureus and MSSA in addition to strep group A remains on appropriate antibiotics, vancomycin has been discontinued remains on Zosyn. Patient remains on bronchodilators, breathing easier, feeling better overall. The patient is seen today October 20, 2023 in follow-up on the regular medical floor. She is awake and alert in no acute distress. Maintaining good O2 saturation in the 90s on room air. Sitting up in a chair at the bedside. She remains on antibiotics in the form of cefepime. Continue on DuoNeb ventilations, Symbicort, Solu-Medrol. Bronchoalveolar lavage was positive for Staphylococcus aureus and strep A. The patient is seen today October 21, 2023 in follow-up on the regular medical floor. She is currently sitting up in bed. Awake and alert in no acute distress. She is better today compared to yesterday. Not quite back to her baseline. Still with a loose congested cough. She remains on cefepime. Her bronchial wash cultures were positive for Staphylococcus aureus, strep A. She remains on DuoNeb inhalations, Mucinex, Symbicort, Solu-Medrol. The patient is seen today October 22, 2023 in follow-up on the regular medical floor. She is awake and alert in no acute distress. Feeling nearly back to her baseline. She is maintaining good O2 saturations in the mid 90s on room air. She has been afebrile. Hemodynamically stable. Bronchial wash cultures were positive for Staphylococcus aureus, strep A. She completed Zosyn. Had also initially been on vancomycin. Remains on Symbicort, DuoNeb inhalations, Solu- Medrol. No new labs today. Objective - Vital Signs Vital signs: Vital Signs Temp 98.0 F 10/22/23 08:00 Pulse 92 10/22/23 09:37 Resp 18 10/22/23 09:37 BP 134/84 10/22/23 08:00 Pulse Ox 95 10/22/23 09:23 FiO2 21 10/17/23 08:54 Intake & Output 10/21/23 10/22/23 10/22/23 18:59 06:59 18:59 Intake Total 240 Output Total 2300 -2059 Intake: Oral 240 Output: Urine 2300 Other: Voiding Method Toilet # Voids 4 # Bowel Movements 1 - Exam GENERAL EXAM: Alert, active, 63-year-old female, sitting up in bed, in no mackenzie arent distress. HEAD: Normocephalic. EYES: Normal reaction of pupils, equal size. NOSE: Clear with pink turbinates. THROAT: No erythema or exudates. NECK: No masses, no JVD. CHEST: No chest wall deformity. LUNGS: Equal air entry with few scattered rhonchi. On room air. CVS: S1 and S2 normal with no audible murmur, regular rhythm. ABDOMEN: No hepatosplenomegaly, normal bowel sounds, no guarding or rigidity. SPINE: No scoliosis or deformity SKIN: No rashes CENTRAL NERVOUS SYSTEM: No focal deficits, tone is normal in all 4 extremities. EXTREMITIES: There is no peripheral edema. No clubbing, no cyanosis. Peripheral pulses are intact. 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 History of recurrent hemoptysis, inactive Mild normocytic, normochromic anemia Recent history of COVID-19 infection, not requiring hospitalization. 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 Number of minutes spent on the visit: 23.
[2023-10-22] MEDS: ACETAMINOPHEN TAB 325 MG TAB PO PRN (15:19)
[2023-10-22 16:00] VITALS: PULSE 92
[2023-10-22] MEDS ORDERED: CEPHALEXIN 500 MG CAP PO SCH (16:00)
[2023-10-23] MEDS ORDERED: methylPREDNISolone 4 MG TAB TAPER PO SCH (09:00)
== END 2023-10-22 16:28 | disposition home or self-care (01) | DRG 720 ==
LOC: EC 11:34 → 3SCARD 14:50 → 4SSUR 10-19 21:40
PROVIDERS: ADMIT Family Medicine; ATTEND Family Medicine
PROC: 0B9D8ZX Drainage of Right Middle Lung Lobe, Via Natural or Artificial Opening Endoscopic, Diagnostic (ICD-10-PCS; principal; 2023-10-14 08:30)
DX: A41.01 Sepsis due to Methicillin susceptible Staphylococcus aureus (principal); J15.211 Pneumonia due to Methicillin susceptible Staphylococcus aureus; R65.20 Severe sepsis without septic shock; J96.01 Acute respiratory failure with hypoxia; E27.8 Other specified disorders of adrenal gland; F32.A Depression, unspecified; R79.89 Other specified abnormal findings of blood chemistry; J44.0 Chronic obstructive pulmonary disease with (acute) lower respiratory infection; J15.4 Pneumonia due to other streptococci; D64.9 Anemia, unspecified; F41.9 Anxiety disorder, unspecified; R49.1 Aphonia; J44.1 Chronic obstructive pulmonary disease with (acute) exacerbation; Z86.16 Personal history of COVID-19; Z85.118 Personal history of other malignant neoplasm of bronchus and lung; Z90.2 Acquired absence of lung [part of]; Z92.21 Personal history of antineoplastic chemotherapy; Z80.1 Family history of malignant neoplasm of trachea, bronchus and lung; Z87.891 Personal history of nicotine dependence; Z92.3 Personal history of irradiation; Z11.52 Encounter for screening for COVID-19; Z28.21 Immunization not carried out because of patient refusal; Z86.19 Personal history of other infectious and parasitic diseases; Z86.79 Personal history of other diseases of the circulatory system; Z79.899 Other long term (current) drug therapy
CPT/HCPCS: 31624; 31645; 36415; 71045; 71046; 71275; 80053; 80202; 82565; 83605; 83735; 83880; 84145; 84484; 85025; 85379; 85610; 85730; 86606; 87040; 87070; 87077; 87102; 87116; 87186; 87205; 87206; 87449; 87496; 87498; 87502; 87529; 87634; 87635; 87636; 87798; 88108; 88305; 88312; 89050; 93005; 94640; 94760; 96361; 96365; 96366; 96367; 96375; 99291

== ENCOUNTER → 2024-03-29 | Outpatient (CLI) | payer OTHER ==
--- NOTE | 2024-03-29 15:57 | CT ---
EXAMINATION TYPE: CT chest w con CT DLP: 194.40 mGycm, Automated exposure control for dose reduction was used. DATE OF EXAM: 03/29/2024 10:22 AM COMPARISON: CTA chest 10/13/2023, PET CT 06/13/2023 CLINICAL INDICATION:Female, 63 years old with history of C34.90 Lung cancer; PHH, f/u lung cancer, co pd TECHNIQUE: Multiple axial images were obtained through the chest following the administration of 100 cc of Isovue 300. . Coronal and sagittal reformats reviewed. FINDINGS: LUNGS/ PLEURA: No pleural effusion or pneumothorax. Posttreatment volume loss of the medial right upp er lobe. Resolution of previously demonstrated airspace opacities in both lungs. No new suspicious pu lmonary nodule or mass. Similar focal right apical pleural thickening extending to the right hilar re gion. AIRWAY: Patent and unremarkable.. HEART: Mildly prominent size heart. No pericardial effusion. 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 MEDIASTINUM: No evidence of adenopathy. VASCULATURE: No aortic aneurysm. Atherosclerotic calcification of the aorta and its branches. Sugges isabel moderate stenosis in the proximal left common carotid artery. Suggested mild to moderate atherosc lerotic narrowing at the proximal right subclavian artery. MUSCULOSKELETAL: No acute osseous abnormalities. No aggressive osseous lesion. Accentuated mid thorac ic kyphosis redemonstrated. Anterior wedge deformities of the T6, T7, and T8 vertebral bodies again d emonstrated. SOFT TISSUES/LYMPH NODES: Unremarkable. LOWER NECK: No significant findings. UPPER ABDOMEN: Partial visualization of left renal cyst measuring up to 2.2 cm. Postsurgical changes posterior to the abdominal IVC . Stable size of left adrenal gland mass versus 2 nodules measuring 3. 5 x 2.9 cm. IMPRESSION: 1. Posttreatment changes of the medial right upper lobe without evidence for new adenopathy or pulmon be nodules. 2. Resolution of previously demonstrated airspace opacities from 10/13/2023. 3. Stable left adrenal gland mass/nodules. Continued follow-up is recommended.
== END | disposition home or self-care (01) ==
LOC: RADCTMAIN 09:50
PROVIDERS: ATTEND Internal Medicine Critical Care Medicine
DX: C34.90 Malignant neoplasm of unspecified part of unspecified bronchus or lung (principal); E27.9 Disorder of adrenal gland, unspecified
CPT/HCPCS: 71260; Q9967

== ENCOUNTER → 2024-12-23 | Outpatient (CLI) | payer MEDICARE, OTHER ==
--- NOTE | 2024-12-23 15:24 | BD ---
EXAMINATION TYPE: Axial Bone Density DATE OF EXAM: 12/23/2024 CLINICAL HISTORY: 64 years old Female. ICD-10 CODE: N95.1 POST ELEANOR SYMPTOMS , Additional History: Height: 62.5 Weight: 135 FRAX RISK QUESTIONS: Family History (Parent hip fracture): no History of Fracture in Adulthood: yes Secondary Osteoporosis: no RISK FACTORS HISTORY OF: Spine Fracture: yes When: unsure Surgery to Spine/Hip(right/left)/Wrist (right/left): no MEDICATIONS: Thyroid Medications: no Osteoporosis Medications: no EXAM MEASUREMENTS: Bone mineral densitometry was performed using the charming char[employer] System. Bone mineral density as measured about the Lumbar spine is: ----- L1-L4(G/cm2): 0.885 T Score Values are as follows: ----- L1: -2.6 ----- L2: -2.3 ----- L3: -1.7 ----- L4: -3.3 ----- L1-L4: -2.5 Z Score Values are as follows: ----- L1: -0.9 ----- L2: -0.6 ----- L3: 0.0 ----- L4: -1.5 ----- L1-L4: -0.7 Bone mineral density baseline Bone mineral density about the R hip (g/cm2): 0.699 Bone mineral density about the L hip (g/cm2): 0.670 T Score values are as follows: -----R Neck: -2.4 -----L Neck: -2.7 -----R Total: -2.4 -----L Total: -2.7 Z Score values are as follows: -----R Neck: -0.9 -----L Neck: -1.1 -----R Total: -1.1 -----L Total: -1.4 Bone mineral density baseline FRAX%s: The graph provided illustrates a 14.3% chance for a major osteoporotic fx and a 3.4% chance f or the hips probability for fx in 10 years time. IMPRESSION: Osteoporosis (T Score less than -2.5). There is increased fracture risk and therapy is usually indicated based on age. Re-Screen 1-2 years. NOTE: T-SCORE=SD OF THE YOUNG ADULT MEAN. [facility], , 12/23/2024 3:22 PM
== END | disposition home or self-care (01) ==
LOC: RADBDWWP 14:18
PROVIDERS: ATTEND Family Medicine
DX: M81.0 Age-related osteoporosis without current pathological fracture (principal); N95.1 Menopausal and female climacteric states
CPT/HCPCS: 77080